=== PATIENT | female | born 1960 | race Caucasian/White ===

== ENCOUNTER 2019-10-20 11:03 | Inpatient (IN) | payer BC, SELFPAY ==
[2019-10-20] VITALS (28 sets, daily range): BP systolic 112–174; BP diastolic 51–132; PULSE 96–135; RESP 12–23; TEMP 36–39.4; O2SAT 89–100; BMI 27.6
--- NOTE | ~2019-10-20 | XR_ITS ---
EXAMINATION: XR foot LT min 3V EXAM DATE: 10/21/2019 11:57 INDICATION: Diabetic Charcot joint. TECHNIQUE: Left foot dorsoplantar, lateral and oblique projections obtained and reviewed. Comparison is made to prior examination from 03/20/2017. FINDINGS: Again there is fragmentation, bony productive change of the midfoot consistent with neurop athic etiology, with some interval progression. There is pes planus. Small to moderate size inferior calcaneal spur. 1st toe amputation at the proximal phalangeal neck. No periosteal reaction or band of sclerosis to suggest subacute stress fracture. There are no acute fractures identified. No radiopa que foreign bodies identified. IMPRESSION: 1. Worsening Charcot's joint. Reviewed, dictated and finalized at location A.
--- NOTE | ~2019-10-20 | XR_ITS ---
EXAMINATION: XR toe 1st RT min 2V, XR foot RT min 3V EXAM DATE: 10/20/2019 12:25 INDICATION: Right foot, 1st toe infection. TECHNIQUE: Right foot dorsoplantar, lateral and oblique projections obtained and reviewed. Right 1st toe frontal, lateral and oblique projections obtained and reviewed. There is no prior study for c omparison. FINDINGS: Erosive change at the right 1st distal phalangeal tuft cortex consistent with osteomyeliti s. There is overlying soft tissue ulceration and surrounding swelling. No other right foot regions o f erosion. There is moderate tarsometatarsal osteoarthritis, probably primary osteoarthritis unless t here is history of prior injury to this joint. No periosteal reaction to suggest subacute fracture. T here are no acute fractures identified. IMPRESSION: Right 1st tuft osteomyelitis, soft tissue ulceration, swelling. Reviewed, dictated and finalized at location A. IMPRESSION: Right 1st tuft osteomyelitis, soft tissue ulceration, swelling.
--- NOTE | 2019-10-20 11:10 | ED.GENADULT ---
HPI - General Adult General Chief complaint: Nausea/Vomiting/Diarrhea Stated complaint: N/V/D MULT C/O Time Seen by Provider: 10/20/19 11:10 Source: patient Mode of arrival: ambulatory Limitations: no limitations Related Data Allergies Allergy/AdvReac Type Severity Reaction Status Date / Time clavulanic acid Allergy Mild SEVERE Unverified 04/19/17 12:10 VOMITING metformin Allergy Mild SEVERE Unverified 04/19/17 12:10 VOMITING Penicillins Allergy Mild SEVERE Unverified 04/19/17 12:10 VOMITING amoxicillin Allergy Unknown Verified 04/19/17 12:10 BETALACTAMASEIN Allergy Mild SEVERE Uncoded 08/07/08 15:27 VOMITING CLAVULANATEPOT Allergy Mild SEVERE Uncoded 08/07/08 15:27 VOMITING NKFA Allergy Unknown Uncoded 10/16/02 14:43 Review of Systems Review of Systems: Narrative: CONSTITUTIONAL: Denies fever, chills, or sweats. EYES: Denies visual changes, redness, or discharge. ENT: Denies rhinorrhea, congestion, sore throat, or otalgia. CARDIOVASCULAR: Denies chest pain, palpitations, or edema. RESPIRATORY: Denies cough or dyspnea. GASTROINTESTINAL: Denies abdominal pain, nausea, vomiting, or diarrhea. GENITOURINARY: Denies dysuria or hematuria. SKIN: Denies rash or itching. MUSCULOSKELETAL: Denies back pain, joint pain, or myalgia. NEUROLOGIC: Denies headache, numbness, or weakness. PSYCHIATRIC: Denies anxiety or depression. PMFSH Past Medical History Medical History (Updated 10/20/19 @ 11:14 by RAMBO Sevilla) Diabetes Fractures Left foot GERD (gastroesophageal reflux disease) Surgical History Surgical History (Updated 10/20/19 @ 11:14 by RAMBO Sevilla) H/O tubal ligation History of cholecystectomy History of orthopedic surgery Great toe on left foot amputated Family History Family History (Updated 10/20/19 @ 11:15 by RAMBO Sevilla) Other Cancer Diabetes mellitus Hypertension Respiratory disorder Comments At the time of my signature I agree with nursing past medical history, surgical, social, and family history. There is no relevant family history pertinent to the presenting complaint. Exam Narrative: Exam Narrative: GENERAL: Well-appearing, well-nourished, and in no acute distress. HEAD: Normocephalic, atraumatic. EYES: PERRLA and EOMI. ENT: Nares clear, no rhinorrhea or epistaxis. Mucous membranes moist. NECK: Supple. No lymphadenopathy CHEST: Clear to auscultation. No respiratory distress. HEART: Regular rate and rhythm. No murmur heard. Normal peripheral pulses. ABDOMEN: Soft, nontender, nondistended, normal active bowel sounds. EXTREMITIES: Normal range of motion. No edema. SKIN: Warm, dry, no rash. NEURO: No focal deficits. Alert and oriented x3. Course Vital Signs Vital signs: Vital signs reviewed. Medical Decision Making Differential Diagnosis Differential Diagnosis: Differential diagnosis: Appendicitis, ovarian torsion, gallbladder disease, ovarian torsion, pancreatitis, lower lobe pneumonia,AAA, AMI or ACS, DKA, diverticulitis. Critical Care Time Critical Care Time Critical Care Time: No
[2019-10-20 11:17] LABS: Glucose Point of Care 484 (65-105)
--- NOTE | 2019-10-20 11:29 | ED.NAVMDI ---
HPI - Nausea/Vomiting/Diarrhea General Chief complaint: Nausea/Vomiting/Diarrhea Stated complaint: N/V/D MULT C/O Time Seen by Provider: 10/20/19 11:10 Source: patient Mode of arrival: ambulatory Limitations: no limitations History of Present Illness HPI Narrative: Patient is a 59-year-old type I diabetic who presents for evaluation of several symptoms including concern for infection of right great toe, vomiting, elevated blood glucose levels. Patient states she has been weak and vomiting over the past 5 days. She has had no oral intake. Patient states that she is feels shaky and very dehydrated. She is denying any chest pain, states that she has had low-grade fevers and myalgias. She reports abdominal cramping throughout her abdomen, denies any back pain. No dysuria or hematuria, but states she has had very concentrated urine. Patient has been without any of her medications over the past 2 months as she had an insurance change and has not had any physician able to see her that accepts her insurance. Patient has a history of peripheral neuropathy, has history of toe amputation of the rleft foot in the past. States that she does not have any feeling in her left foot, but reports that yesterday the left great toe did not look as red as inflamed as it does today. No recent travel, no cough or shortness of breath. No rhinorrhea or congestion. No recent sick contacts. Patient has been mostly isolating at home. Related Data Home Medications Medication Instructions Recorded Confirmed neomycin-polymyxin B-dexameth drp 10/20/19 tobramycin 10/20/19 Allergies Allergy/AdvReac Type Severity Reaction Status Date / Time clavulanic acid Allergy Mild SEVERE Verified 10/20/19 11:49 VOMITING metformin Allergy Mild SEVERE Verified 10/20/19 11:49 VOMITING Penicillins Allergy Mild SEVERE Verified 10/20/19 11:49 VOMITING amoxicillin Allergy Unknown Unknown Verified 10/20/19 11:49 BETALACTAMASEIN Allergy Mild SEVERE Uncoded 08/07/08 15:27 VOMITING CLAVULANATEPOT Allergy Mild SEVERE Uncoded 08/07/08 15:27 VOMITING Review of Systems Review of Systems: Narrative: CONSTITUTIONAL: Reports fever and chills EYES: Denies visual changes, redness, or discharge. ENT: Denies rhinorrhea, congestion, sore throat, or otalgia. CARDIOVASCULAR: Denies chest pain, reports palpitations RESPIRATORY: Denies cough or dyspnea. GASTROINTESTINAL: Reports abdominal pain, nausea, vomiting and diarrhea GENITOURINARY: Denies dysuria or hematuria. SKIN: Denies rash or itching. MUSCULOSKELETAL: Denies back pain, joint pain, reports myalgias NEUROLOGIC: Denies headache, numbness, reports feeling weak PMFSH Past Medical History Medical History Amputated great toe of left foot Diabetes Fractures Left foot GERD (gastroesophageal reflux disease) Surgical History Surgical History H/O tubal ligation History of cholecystectomy History of orthopedic surgery Great toe on left foot amputated Family History Family History (Updated 10/20/19 @ 11:15 by RAMBO Sevilla) Other Cancer Diabetes mellitus Hypertension Respiratory disorder Social History Social History (Updated 10/20/19 @ 11:37 by Edwina Jimenez MD) Smoking status: Never smoker Alcohol intake: never Substance use: never Living arrangements: with family Gender identity (if verbalized by the patient): Female Exam Narrative: Exam Narrative: GENERAL: Awake, alert, conversant HEAD: Normocephalic, atraumatic. EYES: PERRLA and EOMI. ENT: Nares clear, no rhinorrhea or epistaxis. Mucous membranes dry. NECK: Supple. CHEST: No respiratory distress, breathing even and non labored HEART: Tachycardic rate, sinus rhythm ABDOMEN:Non distended, non tender EXTREMITIES: Normal range of motion. Great toe amputation left foot. Right foot great toe erythemo
--- NOTE | 2019-10-20 11:30 | ECG_ITS ---
Measurements Intervals [place] Rate: 131 P: 13 HI: 158 QRS: -32 QRSD: 84 T: 30 QT: 287 QTc: 424 Interpretive Statements SINUS TACHYCARDIA LEFT AXIS DEVIATION VOLTAGE CRITERIA FOR LVH ANTEROSEPTAL INFARCT, AGE INDETERMINATE BASELINE ARTIFACT- II, III, AVR, AVL, AVF ABNORMAL ECG Electronically Signed On 10-20-2019 13:17:31 CDT by Darian Pa D.O.
[2019-10-20] MEDS: MORPHINE SULFATE 2 MG/ML INJ IV PUSH (11:42)
[2019-10-20] MEDS: ONDANSETRON INJ 4 MG/2 ML VIAL IV PUSH (11:42)
[2019-10-20] MEDS: SODIUM CHLORIDE 0.9% IV 2,000 ML/1,000 ML BAG 999 ML IV CONT ×2 (11:42→12:00)
[2019-10-20 12:05] LABS: Alveolar/Arterial O2 Gradient 88.4 mmHg; Base Excess ABG -2.8 mEq/l (+/-2.0); Carboxyhemoglobin 0.8 % THb (0-2.0); Fractional Inspired Oxygen 21 %; HCO3 ABG 20.5 mEq/l (22.0-26.0); Methemoglobin ABG 0.1 %THb (0-1.5); Oxygen Content ABG 15.3 %vol (16.0-22.0); Oxygen Saturation ABG 96.4 % (95.0-100.0); Oxyhemoglobin 94.3 % THb (90.0-100.0); PCO2 ABG 30.7 mmHg (35.0-45.0); PO2 ABG 80.5 mmHg (80.0-100.0); PO2 FiO2 Ratio Arterial Blood 3.83 %; Reduced Hemoglobin 4.8 %THb (0-5.0); Site Drawn LEFT BRACHIAL; Total Hemoglobin 11.5 g/dL (12.0-18.0); pH ABG 7.442 (7.350-7.450)
[2019-10-20 12:05] LABS: Basophils Percent Auto 0.3 % (0.2-1.2); Eosinophils Percent Auto 0.1 % (0-4.4); Hematocrit 38.6 % (37.0-47.0); Immature Granulocyte Absolute 0.08 K/mm3 (0.00-0.031); Immature Granulocyte Percent A 0.7 % (0-0.5); Lymphocytes Absolute Auto 1.74 K/mm3 (0.9-3.2); Lymphocytes Percent Auto 14.4 % (18.3-44.2); Mean Corpuscular HGB Conc 33.7 g/dl (32-36); Mean Corpuscular Hemoglobin 28.8 pg (26-34); Mean Corpuscular Volume 85.4 fl (80-100); Mean Platelet Volume 9.3 fl (7.4-10.4); Monocytes Absolute Auto 0.7 K/mm3 (0.1-0.6); Neutrophils Absolute Auto 9.5 K/mm3 (1.3-6.7); Neutrophils Percent Auto 78.5 % (45.5-73.1); Platelet Count Result 269 k/mm3 (150-375); Red Blood Count 4.52 M/mm3 (4.2-5.4); Red Cell Distribution Width 13.2 % (11.5-14.5); White Blood Count 12.1 K/mm3 (4.5-10.0)
[2019-10-20 12:06] LABS: Device ROOM AIR
[2019-10-20 12:15] LABS: INR 1.1; Partial Thromboplastin Time 22.6 SECONDS (22.3-36.8)
[2019-10-20 12:28] LABS: Troponin I < 0.012 ng/mL (0.000-0.034)
[2019-10-20 12:32] LABS: Erythrocyte Sedimentation Rate 35 mm/hr (0-20)
[2019-10-20 12:47] LABS: Alanine Aminotransferase 21 U/L (4-35); Albumin Level 4.3 g/dL (3.5-5.1); Alkaline Phosphatase 104 U/L (38-126); Aspartate Amino Transferase 29 U/L (14-36); Bilirubin,Total 0.8 mg/dL (0.2-1.3); Blood Urea Nitrogen 17 mg/dL (7-17); Calcium 9.1 mg/dL (8.4-10.2); Carbon Dioxide 25 mmol/L (22-30); Chloride 91 mmol/L (98-107); Estimated CRCL calculation 62 ml/min; Estimated Glomerular Filt Rate > 60; Glucose 524 mg/dL (65-105); Lipase 47 U/L (23-300); Potassium 4.1 mmol/L (3.4-5.0); Sodium 128 mmol/L (137-145)
[2019-10-20 12:58] LABS: Add Urine Microscopic? YES; Appearance Urine Clear (Clear); Bacteria Urine 4+ /hpf; Bilirubin Urine Negative (Negative); Blood Urine Negative (Negative); Color Urine Yellow (Yellow); Glucose Urine UA 3+ mg/dL (Negative); Ketones Urine Trace mg/dL (Negative); Leukocyte Esterase Ur 1+ LEU/UL (Negative); Mucus Urine Heavy /lpf; Nitrate Urine Negative (Negative); Protein Urine Negative (Negative); RBC Urine 0-2 /hpf (0-2); Specific Grav Ur 1.026 (1.001-1.035); Squamous Epithelial Cell Urine Rare /hpf (Few); Urobilinogen Urine Negative mg/dL (<2.0); WBC Urine 0-3 /hpf
[2019-10-20 13:20] LABS: Glucose Point of Care 402 (65-105)
[2019-10-20] MEDS: METOCLOPRAMIDE HCL INJ 10 MG/2 ML VIAL IV PUSH (13:29)
[2019-10-20 13:36] LABS: CRP 37.5 mg/dL (<1.0)
[2019-10-20] MEDS: metroNIDAZOLE 500 MG/ISO 100ML 500 MG/100 ML BAG 100 MG IVPB ×2 (13:37→20:37)
[2019-10-20 13:40] LABS: Glucose 429 mg/dL (65-105)
[2019-10-20] MEDS: INSULIN HUMAN REGULAR (*BKC) 100 UNITS/ML 10 UNITS SUB-Q (13:40)
--- NOTE | 2019-10-20 14:00 | PC.NURSE ---
Pt. oral temp is 103 after tylenol administration. EDP notified and aware. No other interventions ordered at this time.
[2019-10-20 14:02] LABS: Magnesium 1.7 mg/dL (1.6-2.3); Phosphorus 2.9 mg/dL (2.5-4.5)
[2019-10-20 14:03] LABS: Beta-Hydroxybutyrate/Acetoacetate 0.74 mmol/L (0.02-0.27)
--- NOTE | 2019-10-20 15:00 | ADMGEN ---
This patient, Silvina Ospina, was admitted to IMU Room 214-01. Patient/family oriented to hospital policies and general routines including ID bracelet, bed and alarms, visiting hours, pain management, procedures, bathroom and other care routines, personal items, smoking policy, room service/diet, and visiting hours. Valuables list has been completed. Information on how to activate the Rapid Response Team has been discussed. Patient/Family are encouraged to report perceived risks to care and to ask questions if they do not understand what they are told or what they should do.
[2019-10-20 15:03] LABS: Reflex Lactic Acid Yes or No Add Lactic
--- NOTE | 2019-10-20 15:15 | PM.IMHP ---
H&P: HPI History of Present Illness Chief complaint: Multiple complaints. Narrative: Silvina Ospina is a 59-year-old female with insulin-dependent diabetes complicated by diabetic retinopathy and neuropathy who presented to the emergency department earlier this morning via private vehicle from home for evaluation of multiple complaints. She has not been feeling well since Tuesday with multiple symptoms to include lethargy, chills, subjective fever, headache, nausea, dry heaves, and myalgias. Two days ago she noticed the small, chronic ulcer at the tip of the right 1st great toe which seemed to be increasing in size with diffuse erythema and edema. She has been putting antibiotic ointment on the area and had it dressed, and when she removed the dressing today she reports nona purulent drainage. Due to her neuropathy, she really has no sensation in her feet. She had diarrhea earlier in the week, but that has since resolved. No dysuria, urinary hesitancy, frequency, or urgency. Of note, she had a change in jobs and lapse in insurance recently and she has been out of her insulin since June. Previously she was on Basaglar and Apidra, but she does not recall the dosing. It sounds as though she is monitoring her glucose here and there, and notes that is has generally been in the 300 to 400 range, but has been over 500 for the past couple of days. Review of Systems Review of Systems: Narrative: Twelve systems were reviewed with pertinent positives and negatives as per HPI. Currently being treated for keratitis of the left eye with mild photophobia. Reports feeling a bit lightheaded the past couple of days which she attributes to dehydration. She denies sinus congestion, rhinorrhea, otalgia, odynophagia, cough, and shortness of breath. She has not had sick contacts and she denies recent travel. She denies chest pain and palpitations. Except as documented, all other systems were reviewed and are negative. [facility] Past Medical History Medical History (Updated 10/20/19 @ 16:05 by Miesha Santana PA-C) Fractures Left foot Gastroesophageal reflux disease Insulin dependent type 2 diabetes mellitus Complicated by retinopathy and neuropathy. Osteomyelitis (~06/2001) Left great toe which was subsequently amputated. Surgical History Surgical History (Updated 10/20/19 @ 15:59 by Miesha Santana PA-C) History of amputation of left great toe (~06/2001) History of section History of cholecystectomy (~11/1999) History of oophorectomy History of tubal ligation Family History Family History Other Cancer Diabetes mellitus Hypertension Respiratory disorder Social History Social History (Updated 10/20/19 @ 16:01 by Miesha Santana PA-C) Social History: Surrogate decision maker: Sarah Garcia, daughter. Sister Aicha also designated as an emergency contact. Code status: Full code. Smoking status: Former smoker Alcohol intake: never Substance use: never Living arrangements: with family Additional living arrangements comments: Patient lives with her significant other in [place]. Additional occupation/education comments: Works in [employer]. Gender identity (if verbalized by the patient): Female Sexual Orientation (if Verbalized by the Patient): Straight or Heterosexual Spiritual care concerns: Yes ([facility]) Meds Home Medications and Allergies Home Medications Medication Instructions Recorded Confirmed Type neomycin-polymyxin B-dexameth 1 drp BEVE QID 10/20/19 10/20/19 History Allergies Allergy/AdvReac Type Severity Reaction Status Date / Time clavulanic acid Allergy Mild SEVERE Verified 10/20/19 15:16 VOMITING metformin Allergy Mild SEVERE Verified 10/20/19 15:16 VOMITING Penicillins Allergy Mild SEVERE Verified 10/20/19 15:16 VOMITING amoxicilli
[2019-10-20] MEDS: LACTATED RINGERS 1,000 ML 150 ML IV CONT ×2 (15:29→22:50)
[2019-10-20 15:52] LABS: Hemoglobin A1C 13.8 % (<5.7)
[2019-10-20 15:54] LABS: Lactic Acid 3.1 mmol/L (0.7-2.1)
[2019-10-20] MEDS: NEOMYCIN/POLYMYXIN/DEXAMETH OP SUSP 5 ML BTL 1 DROP EACH EYE ×2 (17:27→20:40)
[2019-10-20] MEDS: INSULIN ASPART (*BKC) 100 UNITS/ML SUB-Q (17:27)
[2019-10-20 17:33] LABS: Glucose Point of Care 297 (65-105)
[2019-10-20] MEDS: NEOMYCIN/POLYMYXIN/BACITRACIN OINTMENT 15 GM TUBE 1 APPLIC TOPICAL (20:55)
[2019-10-20 20:59] LABS: Glucose Point of Care 352 (65-105)
[2019-10-20] MEDS: INSULIN GLARGINE (*BKC) 100 UNITS/ML 21 UNITS SUB-Q (21:06)
[2019-10-21] VITALS (15 sets, daily range): BP systolic 119–149; BP diastolic 62–85; PULSE 91–114; RESP 16–20; TEMP 35.7–36; O2SAT 96–100
[2019-10-21] MEDS: metroNIDAZOLE 500 MG/ISO 100ML 500 MG/100 ML BAG 100 MG IVPB ×4 (02:10→20:28)
[2019-10-21 04:01] LABS: Hematocrit 31.8 % (37.0-47.0); Hemoglobin 10.9 g/dL (12.0-15.0); Mean Corpuscular HGB Conc 34.3 g/dl (32-36); Mean Corpuscular Hemoglobin 29.1 pg (26-34); Mean Corpuscular Volume 84.8 fl (80-100); Mean Platelet Volume 9.7 fl (7.4-10.4); Platelet Count Result 202 k/mm3 (150-375); Red Blood Count 3.75 M/mm3 (4.2-5.4); Red Cell Distribution Width 13.1 % (11.5-14.5); White Blood Count 13.3 K/mm3 (4.5-10.0)
[2019-10-21 04:20] LABS: Blood Urea Nitrogen 13 mg/dL (7-17); Calcium 7.9 mg/dL (8.4-10.2); Carbon Dioxide 25 mmol/L (22-30); Chloride 97 mmol/L (98-107); Estimated CRCL calculation 84 ml/min; Estimated Glomerular Filt Rate > 60; Glucose 284 mg/dL (65-105); Potassium 3.4 mmol/L (3.4-5.0); Sodium 129 mmol/L (137-145)
[2019-10-21 08:18] LABS: Glucose Point of Care 307 (65-105)
[2019-10-21] MEDS: LACTATED RINGERS 1,000 ML 150 ML IV CONT ×2 (08:33→20:27)
[2019-10-21] MEDS: NEOMYCIN/POLYMYXIN/DEXAMETH OP SUSP 5 ML BTL 1 DROP EACH EYE ×4 (08:34→20:28)
[2019-10-21] MEDS: NEOMYCIN/POLYMYXIN/BACITRACIN OINTMENT 15 GM TUBE 1 APPLIC TOPICAL (08:34)
[2019-10-21] MEDS: INSULIN ASPART (*BKC) 100 UNITS/ML SUB-Q ×5 (08:36→18:11)
--- NOTE | 2019-10-21 10:46 | PM.IMPN ---
Progress Note: A&P Assessment and Plan (1) Sepsis: Qualifiers: Sepsis acute organ dysfunction status: unspecified Sepsis type: sepsis due to unspecified organism Qualified Code(s): A41.9 - Sepsis, unspecified organism Code(s): A41.9 - Sepsis, unspecified organism Status: Acute Assessment and Plan: -----patient presented to the emergency room with a fever, tachycardia, leukocytosis and lactic acidosis. Etiology likely osteomyelitis with bacteremia. Patient was seen today and still has sinus tachycardia but the fevers have resolved but the leukocytosis has worsened a bit. Her lactic acid yesterday was 3.0. This will be redrawn this morning. Anion gap normal at 7. Patient also is growing g positive cocci in chains in her blood. Continue antibiotics, IV fluids, and monitoring. Patient appears to have improved today. (2) Osteomyelitis of great toe of right foot: Code(s): M86.9 - Osteomyelitis, unspecified Status: Acute Assessment and Plan: -----x-ray of the great toe on the right shows osteomyelitis. Dr. valle has been consulted and adjusted the antibiotics to continue with ceftriaxone and Flagyl. The patient is having some diarrhea but no history of this or C diff and likely associated with antibiotics. Will give her some antidiarrheals to help with this. C diff less likely. Dr. Marshall has been consulted and his input is appreciated. (3) Insulin dependent type 2 diabetes mellitus: Code(s): E11.9 - Type 2 diabetes mellitus without complications; Z79.4 - FPC (current) use of insulin Status: Acute Assessment and Plan: ----- Pts last A1c was 13.8 and last glucose 307. She had a lapse in insurance but did get it back. She states that before she lost her insurance she would take sliding scale and count her carbs per meal. She averaged about 10u of short acting insulin and did 21u of long acting insulin BID. Because of her decreased appetite, regulated diet, and infx/surgical risk, will start lower and increase from there depending on her needs. (4) Bacteriuria: Code(s): R82.71 - Bacteriuria Status: Acute Assessment and Plan: -----She has no symptoms of urinary tract infection. Ceftriaxone should cover if she does have an infection. (5) Hyponatremia: Code(s): E87.1 - Hypo-osmolality and hyponatremia Status: Acute Assessment and Plan: -----Last sodium 129 but when corrected for glucose it is 132. Monitor. (6) Left keratitis: Code(s): H16.9 - Unspecified keratitis Status: Acute Assessment and Plan: -----Continue eye ointment. (7) Bacteremia: Code(s): R78.81 - Bacteremia Status: Acute Assessment and Plan: -----Gram positive cocci in chains noted in both blood cultures. Dr. valle consulted and started ceftriaxone and will continue flagyl. Stop vanc and levoquin. Will monitor cultures for identifications and sensitivities and adjust accordingly. Time Spent With Patient Time with patient: 25 - 35 minutes Subjective Date/time seen: 10/21/19 10:46 Interval history: Pt is a 59-year-old female here for osteomyelitis, bacteremia, and uncontrolled diabetes. Patient was seen today and states she is feeling much better than compared to yesterday. She feels stronger and she was able to eat something today as she has not eaten 5 days. She started having diarrhea with antibiotics and describes this as 5 episodes this morning and gel like . She has not had this issue in the past. She has no feeling in her lower extremities and is not describing any pain in her toes. She denies chest pain, shortness of breath, fevers, chills, nausea or vomiting. The mass was palpated on her upper abdomen and she states that this is consistent with her lap band surgery and it has been there for a while. Review of Systems Review of Systems: All systems reviewed & are
[2019-10-21 10:48] LABS: Lactic Acid Reflex 2.7 mmol/L (0.7-2.1)
--- NOTE | 2019-10-21 11:14 | PM.CNOR ---
Assessment and Plan Assessment and plan (1) Osteomyelitis of great toe of right foot: Code(s): M86.9 - Osteomyelitis, unspecified Status: Acute Assessment and Plan: History, exam and radiographs reviewed with patient, consistent with acute versus acute on subacute osteomyelitis right hallux. Patient states similar situation with left hallux resulting in amputation. Discussed treatment options, risks and benefits of each in chance of salvage. Questions answered. She verbalized understanding would like to proceed with excision of the osteomyelitis which requires amputation of the hallux. She did well with similar treatment on the left side. Discussed nonoperative and operative treatment options with the patient. Risks and benefits of each as well as alternatives were reviewed. All of the patient's questions were answered. The risks of surgery reviewed including but not limited to: Neurovascular damage, wound complication, infection, blood clot, pulmonary embolus, stroke, myocardial infarction, and anesthetic risks up to and including . Continued pain and possible dysfunction were explained. Specific risks of the procedure including later recurrence of deformity. No guarantees were offered. If hardware used, discussed risk of failure/ breakage and possible need for removal. If complications occur, the patient understands the need for further treatment, possible further surgery. Patient verbalizes understanding and wishes to proceed. PLAN: Right hallux amputation (2) Insulin dependent type 2 diabetes mellitus: Code(s): E11.9 - Type 2 diabetes mellitus without complications; Z79.4 - dog hair clipper (current) use of insulin Status: Acute Assessment and Plan: untreated for the past 3 months secondary to insurance problems and COVID-19. Improved control after admission. Continue with IV antibiotics. Cultures pending. (3) Charcot foot due to diabetes mellitus: Code(s): E11.610 - Type 2 diabetes mellitus with diabetic neuropathic arthropathy Status: Acute Assessment and Plan: Left midfoot Charcot changes, chronic. We will obtain new x-rays of the left foot. No active signs at this time. History of Present Illness HPI Consult date: 10/21/19 Requesting physician: Miesha Santana PA-C Consult reason: other (Right diabetic toe infection) Chief complaint: Multiple complaints. Narrative: 59-year-old woman with insulin-dependent diabetes and peripheral neuropathy, history of previous left hallux amputation, presented to emergency room with 3 to 4 week history of worsening right great toe swelling, redness and purulent drainage. No pain secondary to neuropathy. Noted purulent drainage started 3 or 4 days ago. Swelling increased. She had switched jobs 3 months ago and started wearing steel toe boots. Not sure if this had any effect. In addition, with change in job she had change in insurance and was unable to get her insulin. Her diabetes has been uncontrolled for the past 3 months. Noted redness and swelling extending from the toe to the foot over the past few days. Denies ankle leg knee pain. Not sure if she had fever or chills at home. She has had fever here since admission. She was started on intravenous antibiotics and dressing changes. Blood culture and wound cultures are pending. Current symptoms: Reports fever(s) Location: toe ( right hallux) Duration: 3-4 weeks Pain scale (0-10): 0 Trigger: other ( unknown) Review of Systems Constitutional: Constitutional: Reports fatigue and Reports fever(s) Eyes: Eyes: Denies blurry vision ENT: Reports Normal hearing present Cardiovascular: Cardiovascular: Denies chest pain and Denies dyspnea Respiratory: Respiratory: Denies dyspnea and Denies wheezing Gastrointestinal: Gastrointestinal: Denies abdominal pain Genitourinary: Genitourinary: Denies urinary urgency Musculoskeletal: Musculoskeletal: Reports as per HPI Integumen
[2019-10-21 11:44] LABS: Glucose Point of Care 345 (65-105)
[2019-10-21 13:35] LABS: Reflex Lactic Acid Yes or No Add Lactic
[2019-10-21 14:20] LABS: Lactic Acid 1.8 mmol/L (0.7-2.1)
[2019-10-21] MEDS: LOPERAMIDE HCL 2 MG CAPSULE PO ×2 (14:42→18:10)
[2019-10-21 16:31] LABS: Glucose Point of Care 275 (65-105)
[2019-10-21 20:19] LABS: Glucose Point of Care 319 (65-105)
[2019-10-21] MEDS: INSULIN GLARGINE (*BKC) 100 UNITS/ML 20 UNITS SUB-Q (20:29)
[2019-10-22] VITALS (27 sets, daily range): BP systolic 105–157; BP diastolic 54–95; PULSE 80–111; RESP 13–20; TEMP 35.9–37; O2SAT 95–100
[2019-10-22] MEDS: metroNIDAZOLE 500 MG/ISO 100ML 500 MG/100 ML BAG 100 MG IVPB ×4 (01:20→20:48)
[2019-10-22 04:55] LABS: Basophils Absolute Auto 0.1 K/mm3 (0.0-0.1); Basophils Percent Auto 0.4 % (0.2-1.2); Eosinophils Absolute Auto 0.3 K/mm3 (0-0.3); Eosinophils Percent Auto 2.1 % (0-4.4); Hematocrit 30.1 % (37.0-47.0); Hemoglobin 10.4 g/dL (12.0-15.0); Immature Granulocyte Absolute 0.18 K/mm3 (0.00-0.031); Immature Granulocyte Percent A 1.5 % (0-0.5); Lymphocytes Absolute Auto 3.08 K/mm3 (0.9-3.2); Lymphocytes Percent Auto 25.3 % (18.3-44.2); Mean Corpuscular HGB Conc 34.6 g/dl (32-36); Mean Corpuscular Hemoglobin 29.1 pg (26-34); Mean Corpuscular Volume 84.1 fl (80-100); Neutrophils Absolute Auto 7.6 K/mm3 (1.3-6.7); Neutrophils Percent Auto 62.7 % (45.5-73.1); Platelet Count Result 264 k/mm3 (150-375); Red Blood Count 3.58 M/mm3 (4.2-5.4); White Blood Count 12.2 K/mm3 (4.5-10.0)
[2019-10-22 05:22] LABS: Alanine Aminotransferase 12 U/L (4-35); Albumin Level 3.2 g/dL (3.5-5.1); Alkaline Phosphatase 70 U/L (38-126); Aspartate Amino Transferase 18 U/L (14-36); Bilirubin,Total 0.4 mg/dL (0.2-1.3); Blood Urea Nitrogen 8 mg/dL (7-17); Carbon Dioxide 29 mmol/L (22-30); Chloride 97 mmol/L (98-107); Estimated CRCL calculation 84 ml/min; Estimated Glomerular Filt Rate > 60; Glucose 271 mg/dL (65-105); Magnesium 1.3 mg/dL (1.6-2.3); Potassium 2.8 mmol/L (3.4-5.0); Sodium 132 mmol/L (137-145)
[2019-10-22] MEDS: LACTATED RINGERS 1,000 ML 150 ML IV CONT ×3 (05:31→20:47)
--- NOTE | 2019-10-22 07:10 | WPDHPUPDATE1 ---
History and Physical Update Update Date/Time: 10/22/19 07:10 History and Physical has been reviewed, including an updated exam of the patient. There are NO changes in the patient's condition. Risks, benefits, and alternatives have been discussed and questions answered. Patient agrees to proceed with procedure.
--- NOTE | 2019-10-22 07:40 | WPDINFPN2 ---
Progress Note: A&P Assessment and Plan (1) Bacteremia: Code(s): R78.81 - Bacteremia Status: Acute Assessment and Plan: 1. Gram + bacteremia with infection, very likely skin Streptococcus such as B or C. Toe source 2. OM of R 1st toe. 3. 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 F/U micro. Toe amputation today. Stop metronidazole after today. Subjective Date/time seen: 10/22/19 07:40 Objective Data Vital Signs Vital Signs: Vital Signs - 24 hr 10/21/19 08:00 10/21/19 10:44 10/21/19 12:00 Temperature 35.8 C L 35.8 C L Pulse Rate 103 H 108 H 108 H Respiratory Rate 16 16 Blood Pressure 144/85 H 146/75 H Pulse Oximetry 100 100 10/21/19 14:38 10/21/19 16:00 10/21/19 18:29 Temperature 35.7 C L Pulse Rate 114 H 111 H 109 H Respiratory Rate 16 Blood Pressure 119/62 Pulse Oximetry 99 10/21/19 19:45 10/21/19 20:00 10/21/19 22:00 Temperature 35.8 C L Pulse Rate 105 H 93 91 Respiratory Rate 18 Blood Pressure 138/68 Pulse Oximetry 96 10/21/19 23:36 10/22/19 00:00 10/22/19 02:00 Temperature 35.9 C L Pulse Rate 97 94 84 Respiratory Rate 20 Blood Pressure 134/84 Pulse Oximetry 97 10/22/19 04:00 10/22/19 06:00 Temperature 36.0 C L Pulse Rate 92 89 Respiratory Rate 18 Blood Pressure 140/70 Pulse Oximetry 96 Intake/Output Intake/Output: Intake & Output 10/19/19 10/20/19 10/21/19 10/22/19 23:59 23:59 23:59 23:59 Intake Total 4420 3300 3545 Output Total 900 1225 Balance 3520 6705 3545 Meds/Results Medications: Active Medications Generic Name Dose Route Start Last Admin Trade Name Freq PRN Reason Stop Dose Admin Acetaminophen 650 mg 10/20/19 13:32 Tylenol Tablet PO Q4H PRN Mild Pain (1-3) or Fever Hydrocodone Bitart/Acetaminophen 1 tab 10/20/19 13:32 [place] 5-325 Mg PO Q4H PRN Pain Rated 4-6 Dextrose 12.5 gm 10/20/19 15:25 Dextrose 50% Syringe IV PUSH PRN PRN Hypoglycemia Protocol Glucagon 1 mg 10/20/19 15:25 Glucagon For Inj IM PRN PRN Hypoglycemia Protocol Glucose 15 gm 10/20/19 15:25 Glutose 15 PO PRN PRN Hypoglycemia Protocol Metronidazole 500 mg in 100 mls @ 100 mls/hr 10/20/19 20:00 10/22/19 01:20 Flagyl 500 Mg/Iso Soln 100 Ml IVPB 100 mls/hr Q6H ASHER Administration Lactated Ringer's 1,000 mls @ 150 mls/hr 10/20/19 13:35 10/22/19 05:31 Lr - Lactated Ringers Iv IV CONT 150 mls/hr .Q6H40M ASHER Administration Dextrose 1,000 mls @ 100 mls/hr 10/20/19 15:25 Dextrose 5% 1,000 Ml IVPB PRN PRN Hypoglycemia Protocol Ceftriaxone Sodium/Dextrose 1 gm in 50 mls @ 100 mls/hr 10/21/19 12:00 10/21/19 14:39 Rocephin 1 Gm/D5w 50 Ml IVPB Infused NOON ASHER Infusion Potassium Chloride 500 mls @ 125 mls/hr 10/22/19 05:57 10/22/19 06:37 Kcl 40 Meq/D5w 500 Ml Peripheral IVPB 10/22/19 09:56 125 mls/hr ONCE ONE Administration Potassium Chloride 100 mls @ 50 mls/hr 10/22/19 05:57 Potassium Chloride 20 Meq/Sw 100 Ml IVPB 10/22/19 07:56 ONCE ONE Lactated Ringer's 1,000 mls @ 30 mls/hr 10/22/19 07:20 Lr - Lactated Ringers Iv IV CONT .Q24H [facility] Insulin Aspart 3 - 6 units 10/20/19 17:00 10/21/19 18:11 Novolog SUB-Q 4 units TIDWM ASHER Administration Protocol Insulin Aspart 4 units 10/21/19 12:00 10/21/19 18:11 Novolog 0.05 units/kg (4 units) 4 units SUB-Q Administration TIDWM [facility] Insulin Glargine 20 units 10/21/19 21:00 10/21/19 20:29 Lantus SUB-Q 20 units HS ASHER Administration Loperamide HCl 2 mg 10/21/19 11:07 10/21/19 18:10 Loperamide Hcl PO 2 mg PRN PRN Administration Diarrhea Neomycin/Polymyxin/Bacitracin 1 applic 10/20/19 21:00 10/21/19 20:36 Triple Antibiotic Ointment TOPICAL Not Given Q12HR ASHER Neomycin/Polymyxin/Dexamethasone 1 drop 10/20/19 1
[2019-10-22 08:40] LABS: Glucose Point of Care 287 (65-105)
[2019-10-22] MEDS: INSULIN ASPART (*BKC) 100 UNITS/ML SUB-Q ×2 (08:42→19:46)
[2019-10-22] MEDS: NEOMYCIN/POLYMYXIN/BACITRACIN OINTMENT 15 GM TUBE 1 APPLIC TOPICAL (08:56)
[2019-10-22] MEDS: NEOMYCIN/POLYMYXIN/DEXAMETH OP SUSP 5 ML BTL 1 DROP EACH EYE ×4 (08:56→20:48)
[2019-10-22] MEDS: LACTATED RINGERS 1,000 ML 30 ML IV CONT (10:00)
--- NOTE | 2019-10-22 10:59 | WPDANESEPPF ---
Anes - Initial Pre Proc Eval Procedure: Operation Date: 10/22/19 11:00 Proposed Procedures p Right Hallux Amputation - Edmond Marshall MD Date/Time: 10/22/19 10:59 Surgeon: Key Boston PA-C Pre Op Diagnosis: Multiple complaints. Patient Data Age: 59 Gender: F Height: 5 ft 3 in Weight: 76.5 kg Last Vital Signs Temp 36.7 C 10/22/19 10:53 Pulse 98 10/22/19 10:53 Resp 20 10/22/19 10:53 BP 140/73 10/22/19 10:53 Pulse Ox 100 10/22/19 10:53 Allergies Allergy/AdvReac Type Severity Reaction Status Date / Time clavulanic acid Allergy Mild SEVERE Verified 10/20/19 15:16 VOMITING metformin Allergy Mild SEVERE Verified 10/20/19 15:16 VOMITING Penicillins Allergy Mild SEVERE Verified 10/20/19 15:16 VOMITING amoxicillin Allergy Unknown Unknown Verified 10/20/19 15:16 BETALACTAMASEIN Allergy Mild SEVERE Uncoded 10/20/19 15:16 VOMITING CLAVULANATEPOT Allergy Mild SEVERE Uncoded 10/20/19 15:16 VOMITING Home Medications Medication Instructions Recorded Confirmed Type neomycin-polymyxin B-dexameth 1 drp LEFTEYE QID 10/20/19 10/20/19 History Laboratory Tests 10/21/19 10/21/19 10/21/19 11:41 13:45 16:19 WBC RBC Hgb Hct MCV MCH MCHC RDW Plt Count MPV Immature Gran % (Auto) Neut % (Auto) Lymph % (Auto) [place] % (Auto) Eos % (Auto) Baso % (Auto) Lymph # (Auto) [place] # (Auto) Eos # (Auto) Baso # (Auto) Abs Immat Gran (auto) Absolute Neuts (auto) Absolute Nucleated RBC Nucleated RBC % Sodium Potassium Chloride Carbon Dioxide BUN Creatinine Estim Creat Clear Calc Estimated GFR Glucose POC Capillary Glucose 345 mg/dl H mg/dl 275 mg/dl H mg/dl (65-105) (65-105) Lactic Acid 1.8 mmol/L mmol/L (0.7-2.1) Calcium Magnesium Total Bilirubin Direct Bilirubin AST ALT Alkaline Phosphatase Total Protein Albumin 10/21/19 10/22/19 10/22/19 20:14 04:28 04:28 WBC 12.2 K/mm3 H K/mm3 (4.5-10.0) RBC 3.58 M/mm3 L M/mm3 (4.2-5.4) Hgb 10.4 g/dL L g/dL (12.0-15.0) Hct 30.1 % L % (37.0-47.0) MCV 84.1 fl fl (80-100) MCH 29.1 pg pg (26-34) MCHC 34.6 g/dl g/dl (32-36) RDW 13.0 % % (11.5-14.5) Plt Count 264 k/mm3 k/mm3 (150-375) MPV 9.0 fl fl (7.4-10.4) Immature Gran % (Auto) 1.5 % H % (0-0.5) Neut % (Auto) 62.7 % % (45.5-73.1) Lymph % (Auto) 25.3 % % (18.3-44.2) [place] % (Auto) 8.0 % % (2.6-8.5) Eos % (Auto) 2.1 % % (0-4.4) Baso % (Auto) 0.4 % % (0.2-1.2) Lymph # (Auto) 3.08 K/mm3 K/mm3 (0.9-3.2) [place] # (Auto) 1.0 K/mm3 H K/mm3 (0.1-0.6) Eos # (Auto) 0.3 K/mm3 K/mm3 (0-0.3) Baso # (Auto) 0.1 K/mm3 K/mm3 (0.0-0.1) Abs Immat Gran (auto) 0.18 K/mm3 H K/mm3 (0.00-0.031) Absolute Neuts (auto) 7.6 K/mm3 H K/mm3 (1.3-6.7) Absolute Nucleated RBC 0.0 K/mm3 K/mm3 (0.0-0.012) Nucleated RBC % 0.0 % % (0.0-0.2) Sodium 132 mmol/L L mmol/L (137-145) Potassium 2.8 mmol/L L* mmol/L (3.4-5.0) Chloride 97 mmol/L L mmol/L (98-107) Carbon Dioxide 29 mmol/L mmol/L (22-30) BUN 8 mg/dL D mg/dL (7-17) Creatinine 0.60 mg/dL L mg/dL (0.7-1.0) Estim Creat Clear Calc 84 ml/min ml/min Estimated GFR > 60 (59 - ) G
[2019-10-22 11:07] LABS: Glucose Point of Care 241 (65-105)
--- NOTE | 2019-10-22 12:05 | P.OP_ITS ---
Procedure Note - Detailed Date of procedure: 10/22/19 Pre-op diagnosis: Multiple complaints. right hallux osteomyelitis diabetic foot ulcer Procedure performed: right hallux amputation Description of procedure: indications: Patient is a 59-year-old woman with insulin-dependent diabetes and peripheral neuropathy. One month history of right hallux diabetic toe ulcer now with x-rays showing osteomyelitis. Presents for operative treatment. Description of procedure: Patient identified in the preoperative holding. Informed consent given. Operative extremity marked. Patient received intravenous antibiotics. Patient brought to the operating room where underwent general anesthetic by anesthesia team. Positioned supine on operating room table. Time-out performed confirming the patient, site of the surgery and the plan. Right foot prepped and draped in usual sterile surgical fashion using Betadine prep solution. There was an ulcer over the dorsal medial aspect of the hallux which revealed full-thickness necrosis with exposed bone of the proximal phalanx. No ability to heal the wound and no soft tissue coverage of the bone, amputation of the hallux was indicated. Fifteen blade knife used to make fishmouth shaped incision at the base of the hallux. Hemostasis controlled with electrocautery. Proximal phalanx incised circumferentially with a 15 blade knife, retractors placed in sagittal saw used to transect the proximal phalanx of the hallux at the mid to proximal 1/3 junction, and hallux removed and passed off the table. Thorough irrigation done. Wound thoroughly irrigated again. Wound closed with 3 0 Monocryl interrupted suture for the deep tissue, 4 O nylon interrupted sutures for the skin. Sterile dressings applied. Patient awoke from anesthesia, extubated and taken to the recovery room in stable con dition. All sponge needle and instrument counts correct at the end the case. Anesthesia: GLMA Surgeon: Edmond Marshall MD Exchange Specialist: 1st hospital aides and assistants teacher Estimated blood loss (mL): 5 Tourniquet time (min): 30 Drains: No Packing: No Pathology: yes ( right hallux) Complications: None Condition: stable Disposition: PACU
[2019-10-22] MEDS: KCL 20 MEQ/SW 100 ML 100 ML 50 MEQ IVPB (12:30)
--- NOTE | 2019-10-22 13:08 | CONS_ITS ---
DATE OF CONSULTATION: 10/22/2019 REASON FOR CONSULTATION: Bacteremia. HISTORY OF PRESENT ILLNESS: The patient is a 59-year-old female with longstanding diabetes mellitus. She has undergone previous amputation of the distal 1st phalanx on the left hand side due to infection by report, this was some 20 years ago. She unfortunately is between primary care physicians currently due to change in insurance plus her blood sugars have been abnormally high. She is admitted to the hospital on October 19, with several days of right 1st toe swelling, redness, drainage, fever and chills, malaise, myalgias, nausea and vomiting and headache. She was admitted and started on ceftriaxone metronidazole, and vancomycin. I stopped the vancomycin yesterday. Operation is planned today on the first toe. She was on no other antibiotics in the last 6 weeks for any other purpose. No steroids. No other immunosuppressants and she knows of no trauma. ALLERGIES: SHE IS UNAWARE OF ANY ALLERGIES, THOUGH CHART INDICATES VOMITING TO PENICILLINS. HABITS: Ex-smoker and no alcohol. PRESENT MEDICATIONS: No immunosuppressants. PAST MEDICAL HISTORY: 1. GERD. 2. Diabetic retinopathy and neuropathy. 3. . 4. Cholecystectomy. 5. Oophorectomy. 6. BTL. REVIEW OF SYSTEMS: Hyperglycemia at home. Her 14-point review is otherwise negative. FAMILY HISTORY: Cancer, diabetes, hypertension, respiratory disease. SOCIAL HISTORY: She is single. 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 Lives with her significant other. No family at the bedside currently. PHYSICAL EXAMINATION: GENERAL: This is a middle-aged female, who appears older than her actual age. No acute distress. VITAL SIGNS: Her temperature on arrival is 38.1, later in the day T-max 39.4, and she has been afebrile since. 98, 18, 140/70, 96% on room air. SKIN: Warm and dry. No rashes. NODES: No cervical adenopathy. EENT: The conjunctivae appear normal. Pupils equal, round, and reactive to light. Extraocular movements are normal. No nystagmus. The oropharynx, oral mucosa normal. Multiple missing teeth. NECK: No masses, thyromegaly, tenderness. LUNGS: Clear to auscultation and percussion. CHEST: Equal expansion. Normal AP diameter. CARDIAC: Regular rate and rhythm. No murmur, gallop, or rub. ABDOMEN: Nontender, soft. No organomegaly. No masses. EXTREMITIES: Amputation site, left 1st toe is well healed. No evidence of erythema, tenderness, or warmth. On the right, she has erythema and edema of the entire 1st toe with erythema extending over into the distal foot on the dorsal aspect. She has no crepitus, no proximal tenderness, no streaking. The toe has several ulcers, which are variable and depth. No odor. No evidence of necrosis, has diffuse erythema of the toe as well. NEUROLOGIC: Decreased light touch sensation. Awake, alert, oriented, appropriate. LABORATORY DATA: Blood cultures 2/2 sets gram-positive cocci in chains. A wound culture was also collected in the emergency room. No white cells, many gram-positive cocci in chains. A 2nd 1 was obtained as well with the same result. Her white blood cell count 12.2 initially and again today after being 13.3 yesterday. Hemoglobin 10.4, platelets are 264, differential is normal. Prothrombin time normal. Blood gas 7.44, 31, 81, 21, 96% room air. She has hyponatremia, which is improving up to 132, potassium is 2.8, creatinine is 0.6, BUN is 8, glucose 271 and yesterday 429. Her hemoglobin A1c 13.8%. Lactate high, but then normalized quickly. Calcium 8.0, but her albumin is only 3.2. Her CRP is 38 and her urinalysis with glucose, leukocyte esterase, otherwise no evidence of infection. RADIOLOGY: Foot x-ray on the right showed erosion at the distal phalangea
--- NOTE | 2019-10-22 16:45 | PM.IMPN ---
Progress Note: A&P Assessment and Plan (1) Sepsis: Qualifiers: Sepsis acute organ dysfunction status: unspecified Sepsis type: sepsis due to unspecified organism Qualified Code(s): A41.9 - Sepsis, unspecified organism Code(s): A41.9 - Sepsis, unspecified organism Status: Acute Assessment and Plan: -----patient presented to the emergency room with a fever, tachycardia, leukocytosis and lactic acidosis. Etiology osteomyelitis with bacteremia. Sinus tachycardia and leukocytosis has improved. Lactic acid has returned to normal. Continue antibiotics (2) Osteomyelitis of great toe of right foot: Code(s): M86.9 - Osteomyelitis, unspecified Status: Acute Assessment and Plan: -----x-ray of the great toe on the right shows osteomyelitis. Patient had amputation 10/21 and has no immediate complications. Dr. valle has been consulted and adjusted the antibiotics. The patient is having some diarrhea but no history of this or C diff and likely associated with antibiotics. Will give her some antidiarrheals to help with this. C diff less likely. Continue activity and anticoagulation per ortho (3) Insulin dependent type 2 diabetes mellitus: Code(s): E11.9 - Type 2 diabetes mellitus without complications; Z79.4 - extermination inspector (current) use of insulin Status: Acute Assessment and Plan: ----- Pts last A1c was 13.8 and last glucose 241. She had a lapse in insurance but did get it back. She states that before she lost her insurance she would take sliding scale and count her carbs per meal. She averaged about 10u of short acting insulin per meals and did 21u of long acting insulin BID. Because of her decreased appetite, regulated diet, and infx/surgical risk, her insulin is 25u lantus daily and 5units with SSI fast acting. This should be adjusted as needed. (4) Bacteriuria: Code(s): R82.71 - Bacteriuria Status: Acute Assessment and Plan: -----She has no symptoms of urinary tract infection. Ceftriaxone should cover if she does have an infection. (5) Hyponatremia: Code(s): E87.1 - Hypo-osmolality and hyponatremia Status: Acute Assessment and Plan: -----Last sodium improving with glucose control, now 132. (6) Left keratitis: Code(s): H16.9 - Unspecified keratitis Status: Acute Assessment and Plan: -----Continue eye ointment. (7) Bacteremia: Code(s): R78.81 - Bacteremia Status: Acute Assessment and Plan: -----Group C strep in both bottles and wound. Dr. valle consulted and will continue ceftriaxone and will flagyl. Monitor for sensativities and adjust accordingly. Subjective Date/time seen: 10/22/19 16:45 Interval history: Pt is a 59-year-old female here for osteomyelitis, bacteremia, and uncontrolled diabetes. Patient was seen today after surgery and states she is feeling a ton better. She no longer has a headache and feels stronger. She is eating and drinking without issue. She still having diarrhea with the antibiotics and this is common for her as she has diarrhea any time she takes antibiotics. She has never had C diff before. She denies chest pain, shortness of breath, fevers, chills, or leg swelling today. Exam Narrative: Exam Narrative: General: Overweight patient resting comfortably in bed in no acute distress HEENT: normocephalic Neck: supple Neuro: Alert and oriented x4 CV: RRR rate about 100. No murmurs Resp:CTA Abd: Soft, non distended. Mass like object in the epigastric/LUQ area. No pain to palpation. Positive bowel sounds Extremities: Right foot bandage and since she just came out of surgery for hemostasis reasons, this was not undressed. No pitting edema or erythema to the lower extremities. Objective Data Vital Signs Vital Signs: Vital Signs - 24 hr 10/21/19 18:29 10/21/19 19:45 10/21/19 20:00 Temperature 96.5 F L Pulse
[2019-10-22 17:05] LABS: Glucose Point of Care 426 (65-105)
[2019-10-22] MEDS: LOPERAMIDE HCL 2 MG CAPSULE PO (17:49)
[2019-10-22] MEDS: INSULIN ASPART (*BKC) 100 UNITS/ML 10 UNITS SUB-Q (18:01)
[2019-10-22] MEDS: MAGNESIUM SULF 2 GM/WATER 50ML 2 GM/50 ML BAG IVPB (19:41)
[2019-10-22 19:45] LABS: Glucose Point of Care 377 (65-105)
[2019-10-22] MEDS: INSULIN GLARGINE (*BKC) 100 UNITS/ML 25 UNITS SUB-Q (20:48)
[2019-10-23] VITALS (11 sets, daily range): BP systolic 128–158; BP diastolic 51–84; PULSE 66–111; RESP 18–20; TEMP 35.9–37.2; O2SAT 94–97
[2019-10-23] MEDS: metroNIDAZOLE 500 MG/ISO 100ML 500 MG/100 ML BAG 100 MG IVPB ×4 (01:24→20:44)
[2019-10-23 05:01] LABS: Basophils Percent Auto 0.2 % (0.2-1.2); Eosinophils Percent Auto 0.3 % (0-4.4); Hemoglobin 11.2 g/dL (12.0-15.0); Immature Granulocyte Absolute 0.34 K/mm3 (0.00-0.031); Immature Granulocyte Percent A 2.8 % (0-0.5); Lymphocytes Absolute Auto 2.72 K/mm3 (0.9-3.2); Lymphocytes Percent Auto 22.4 % (18.3-44.2); Mean Corpuscular HGB Conc 33.9 g/dl (32-36); Mean Corpuscular Hemoglobin 28.4 pg (26-34); Mean Corpuscular Volume 83.8 fl (80-100); Mean Platelet Volume 8.9 fl (7.4-10.4); Monocytes Absolute Auto 0.9 K/mm3 (0.1-0.6); Monocytes Percent Auto 7.3 % (2.6-8.5); Neutrophils Absolute Auto 8.1 K/mm3 (1.3-6.7); Platelet Count Result 335 k/mm3 (150-375); Red Blood Count 3.94 M/mm3 (4.2-5.4); Red Cell Distribution Width 13.2 % (11.5-14.5); White Blood Count 12.2 K/mm3 (4.5-10.0)
[2019-10-23 05:34] LABS: Blood Urea Nitrogen 15 mg/dL (7-17); CRP 15.2 mg/dL (<1.0); Calcium 8.2 mg/dL (8.4-10.2); Carbon Dioxide 30 mmol/L (22-30); Chloride 93 mmol/L (98-107); Estimated CRCL calculation 73 ml/min; Estimated Glomerular Filt Rate > 60; Glucose 341 mg/dL (65-105); Magnesium 1.8 mg/dL (1.6-2.3); Phosphorus 3.2 mg/dL (2.5-4.5); Potassium 3.2 mmol/L (3.4-5.0); Sodium 132 mmol/L (137-145)
[2019-10-23] MEDS: INSULIN ASPART (*BKC) 100 UNITS/ML SUB-Q ×6 (08:02→17:27)
[2019-10-23] MEDS: POTASSIUM CHLORIDE 20 MEQ TABLET 40 MEQ PO (08:03)
[2019-10-23] MEDS: NEOMYCIN/POLYMYXIN/DEXAMETH OP SUSP 5 ML BTL 1 DROP EACH EYE ×4 (08:05→20:44)
[2019-10-23] MEDS: INSULIN GLARGINE (*BKC) 100 UNITS/ML 15 UNITS SUB-Q ×2 (08:05→17:26)
[2019-10-23 08:14] LABS: Glucose Point of Care 322 (65-105)
--- NOTE | 2019-10-23 09:19 | PM.PNORT ---
Progress Note: A&P Assessment and Plan (1) Osteomyelitis of great toe of right foot: Code(s): M86.9 - Osteomyelitis, unspecified Status: Acute Assessment and Plan: POD #1: RIGHT Hallux Amputation Dressing changed. Change daily. Apply adaptic, 4x4 gauze and wrap with kerlex. Continue post op shoe. Weight bearing on heel with walker. IV antibiotics per Dr. Alonso. Appreciate recommendations. Continue PT/OT. Will continue to follow. (2) Charcot foot due to diabetes mellitus: Code(s): E11.610 - Type 2 diabetes mellitus with diabetic neuropathic arthropathy Status: Acute Subjective Subjective Date/Time Seen: 10/23/19 09:19 Post Op day: 1 (Right Hallux Amputation ) Principal diagnosis: Right hallux osteomyelitis diabetic foot ulcer Interval history: POD #1: Right Hallux Amputation No new complaints. No pain. Review of Systems Constitutional: Constitutional: Denies chills, Denies fatigue, Denies fever(s) and Denies weakness Cardiovascular: Cardiovascular: Denies chest pain, Denies pedal edema and Denies lightheadedness Respiratory: Respiratory: Denies cough, Denies dyspnea and Denies wheezing Gastrointestinal: Gastrointestinal: Denies abdominal pain, Denies constipation, Denies diarrhea, Denies nausea and Denies vomiting Musculoskeletal: Musculoskeletal: Reports as per HPI Exam Const: General: comfortable and no acute distress Resp: Effort & Inspection: normal respiratory effort Cardio: Rate: regular rate Rhythm: regular rhythm GI: Inspection: non-distended Skin: General skin exam: normal color Wounds: wounds noted (Right Hallux Amputation ) Neuro: Cognition (Neuro): normal cognition Speech: normal speech Extrem: Right lower extremity: foot (s/p right hallux amputation ) Details: normal capillary refill, toes with normal ROM (aside from hallux ) and motor-sensory exam Details: two point discrimination abnormal Location: in the 2nd digit, in the 3rd digit, in the 4th digit and in the 5th digit and light-touch abnormal Location: in the 2nd digit, in the 3rd digit, in the 4th digit and in the 5th digit Other: Right Hallux Amputation. Incision remains well-approximated. No signs of dehiscence at this time. Mild surrounding redness, relieved with elevation. Remainder of the right foot without redness, warmth, swelling or signs of worsening infection. Psych: Mental Status: mental status grossly normal Affect: normal affect Objective Data Vital Signs Vital Signs: Vital Signs - 24 hr 10/22/19 10:00 10/22/19 10:53 10/22/19 12:00 Temperature 36.7 C Pulse Rate 99 98 87 Respiratory Rate 20 Blood Pressure 140/73 Pulse Oximetry 100 10/22/19 12:06 10/22/19 12:15 10/22/19 12:30 Temperature 36.7 C Pulse Rate 95 97 96 Respiratory Rate 13 13 14 Blood Pressure 142/79 H 138/74 145/76 H Pulse Oximetry 100 100 100 10/22/19 12:45 10/22/19 13:00 10/22/19 13:15 Temperature Pulse Rate 95 96 94 Respiratory Rate 18 18 18 Blood Pressure 155/91 H 157/83 H 151/95 H Pulse Oximetry 95 95 96 10/22/19 13:30 10/22/19 13:45 10/22/19 14:00 Temperature Pulse Rate 95 96 95 Respiratory Rate 14 19 Blood Pressure 155/83 H 153/89 H Pulse Oximetry 96 97 10/22/19 14:30 10/22/19 15:06 10/22/19 16:00 Temperature 37.0 C 37.0 C Pulse Rate 96 96 104 H Respiratory Rate 16 16 Blood Pressure 146/66 H 137/80 Pulse Oximetry 98 98 10/22/19 16:23 10/22/19 17:00 10/22/19 18:00 Temperature 35.9 C L 36.9 C Pulse Rate 108 H 103 H 101 H Respiratory Rate 18 18 Blood Pressure 124/61 136/68 Pulse Oximetry 98 100 10/22/19 19:55 10/22/19 20:00 10/22/19 22:00 Temperature 36.6 C Pulse Rate 111 H 102 H 91 Respiratory Rate 20 Blood Pressure 105/54 L Pulse Oximetry 96 10/22/19 23:30 10/23/19 00:00 10/23/19 02:00 Temperature 36.6 C Pulse Rate 94 79 93 Respiratory Rate 20 Blood Pressure 121/74 Pulse Oximetry 99 10/23/19 03:40
--- NOTE | 2019-10-23 09:36 | WPDANESPN ---
Anes - Prog Note Post-Op Date/Time: 10/23/19 09:36 Cardiovascular status: normal Respiratory status: normal Airway patency: baseline Mental status: baseline Post-Op hydration status: normal Vital Signs: Last Vital Signs Temp 35.9 C L 10/23/19 07:47 Pulse 93 10/23/19 07:47 Resp 20 10/23/19 07:47 BP 147/77 H 10/23/19 07:47 Pulse Ox 97 10/23/19 07:47 I/O: Intake & Output 10/22/19 10/23/19 10/23/19 23:59 07:59 15:59 Intake Total 2060 100 480 Output Total 1300 Balance 760 100 480 Laboratory Tests 10/23/19 04:40 10/23/19 04:40 10/22/19 10/22/19 10/22/19 11:04 16:47 19:42 WBC RBC Hgb Hct MCV MCH MCHC RDW Plt Count MPV Immature Gran % (Auto) Neut % (Auto) Lymph % (Auto) [place] % (Auto) Eos % (Auto) Baso % (Auto) Lymph # (Auto) [place] # (Auto) Eos # (Auto) Baso # (Auto) Abs Immat Gran (auto) Absolute Neuts (auto) Absolute Nucleated RBC Nucleated RBC % Sodium Potassium Chloride Carbon Dioxide BUN Creatinine Estim Creat Clear Calc Estimated GFR Glucose POC Capillary Glucose 241 H 426 H 377 H Calcium Phosphorus Magnesium C-Reactive Protein 10/23/19 10/23/19 10/23/19 04:40 04:40 07:53 WBC 12.2 H RBC 3.94 L Hgb 11.2 L Hct 33.0 L MCV 83.8 MCH 28.4 MCHC 33.9 RDW 13.2 Plt Count 335 MPV 8.9 Immature Gran % (Auto) 2.8 H Neut % (Auto) 67.0 Lymph % (Auto) 22.4 [place] % (Auto) 7.3 Eos % (Auto) 0.3 Baso % (Auto) 0.2 Lymph # (Auto) 2.72 [place] # (Auto) 0.9 H Eos # (Auto) 0.0 Baso # (Auto) 0.0 Abs Immat Gran (auto) 0.34 H Absolute Neuts (auto) 8.1 H Absolute Nucleated RBC 0.0 Nucleated RBC % 0.0 Sodium 132 L Potassium 3.2 L Chloride 93 L Carbon Dioxide 30 BUN 15 D Creatinine 0.70 Estim Creat Clear Calc 73 Estimated GFR > 60 Glucose 341 H POC Capillary Glucose 322 H Calcium 8.2 L Phosphorus 3.2 Magnesium 1.8 C-Reactive Protein 15.2 H Microbiology 10/20/19 11:58 Blood Blood Culture - Final Group B Streptococcus isolated 10/20/19 13:56 Toe Right Great Wound Culture - Preliminary Staphylococcus aureus Group B Streptococcus isolated 10/20/19 11:58 Blood Blood Culture - Final Group B Streptococcus isolated Post-procedural complaints: none Patient Feedback: Patient satisfied with anesthetic care.
--- NOTE | 2019-10-23 10:47 | PM.IMPN ---
Progress Note: A&P Assessment and Plan (1) Osteomyelitis of great toe of right foot: Code(s): M86.9 - Osteomyelitis, unspecified Status: Acute Assessment and Plan: R great toe XR confirmed osteomyelitis; now POD#1 s/p R hallux amputation by Dr Marshall 10/22/19. Blood cultures growing Group B strep; R great toe culture also with growth of Staph aureus. Dr Alonso following; appreciate recommendations. Continue ceftriaxone day 4 of 6 through 10/24 dose. (2) Septicemia: Code(s): A41.9 - Sepsis, unspecified organism Status: Acute Assessment and Plan: Evident by fever, tachycardia, and leukocytosis. Etiology osteomyelitis R great toe with positive blood cultures. See above. 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 Lapse in insurance and changing jobs left her without a PCP and has had trouble getting into a PCP taking new patients due to COVID pandemic. She noted she used to take long-acting insulin twice daily and scheduled short-acting insulin plus sliding scale with each meal. We will try increasing Lantus to BID today and continue scheduled Novolog. Will monitor with accu-cheks and increase insulin as needed. Discussed the importance of establishing with PCP [facility] and discussed the importance of tight glycemic control for wound healing. (4) Hyponatremia: Code(s): E87.1 - Hypo-osmolality and hyponatremia Status: Acute Assessment and Plan: 132 today, will monitor. BG control. (5) Left keratitis: Code(s): H16.9 - Unspecified keratitis Status: Acute Assessment and Plan: Continue eye ointment. Subjective Date/time seen: 10/23/19 10:30 Interval history: Ms. Casillas is a pleasant 59yo F admitted with osteomyelitis and septicemia now POD#1 s/p R hallux amputation by Dr Marshall. She is feeling well today and notes she has walked with therapy. She denies any chest pain, shortness of breath, or cough. She has tolerated some breakfast without nausea, vomiting, or abdominal pain. She notes issues with finding a primary care provider due to COVID pandemic thus has been out of her insulin. Review of Systems Review of Systems: Narrative: Twelve systems were reviewed with pertinent positives and negatives as per HPI. Exam Narrative: Exam Narrative: General: Female resting comfortably in bed in no acute distress. HEENT: Normocephalic, EOMI, oral mucosa moist. Cardiovascular: Rate and rhythm are regular. Respiratory: Lungs clear to auscultation all cui. Non-labored breathing. Abdomen: Soft, non-tender, non-distended, bowel sounds present. Extremities: R foot dressing just changed by lyssa Ortiz, so I did not take it down. Able to wiggle toes SATHISH. Left great toe also amputated, many years ago per PT. No edema. Neuro: No focal neurological deficits. Speech is clear. Objective Data Vital Signs Vital Signs: Last Vital Signs Temp 96.6 F L 10/23/19 07:47 Pulse 101 H 10/23/19 12:00 Resp 20 10/23/19 07:47 BP 147/77 H 10/23/19 07:47 Pulse Ox 97 10/23/19 07:47 Intake/Output Intake/Output: Intake & Output 10/20/19 10/21/19 10/22/19 10/23/19 23:59 23:59 23:59 23:59 Intake Total 4420 3300 6805 580 Output Total 900 1225 1300 Balance 3520 8145 5795 580 Meds/Results Medications: Active Medications Generic Name Dose Route Start Last Admin Trade Name Freq PRN Reason Stop Dose Admin Acetaminophen 650 mg 10/20/19 13:32 Tylenol Tablet PO Q4H PRN Mild Pain (1-3) or Fever Hydrocodone Bitart/Acetaminophen 1 tab 10/20/19 13:32 [place] 5-325 Mg PO Q4H PRN Pain Rated 4-6 Dextrose 12.5 gm 0
[2019-10-23 11:52] LABS: Glucose Point of Care 308 (65-105)
[2019-10-23] MEDS: LOPERAMIDE HCL 2 MG CAPSULE PO ×2 (14:29→22:32)
--- NOTE | 2019-10-23 14:56 | WPDINFPN2 ---
Progress Note: A&P Assessment and Plan (1) Bacteremia: Code(s): R78.81 - Bacteremia Status: Acute Assessment and Plan: 1. Grp B Strep bacteremia with infection, Toe source 2. OM of R 1st toe. S aureus also isolated. Operative findings noted 3. DM poor control due to no manager primary REC Ctx #4 /, through 10/24 dose. Then short course oral. No vancomycin empirically, as there is low suspicion for MRSA, and also because the site of the culture is now gone. Subjective Date/time seen: 10/23/19 14:56 Interval history: very little pain, no further rigors Exam Narrative: Exam Narrative: afebrile Const: General: no acute distress Resp: Effort & Inspection: normal respiratory effort Auscultation: clear to auscultation bilaterally Cardio: Rate: regular rate Rhythm: regular rhythm Heart sounds: no murmurs Extrem: Other: r foot dressed, serosanguinous drainage Objective Data Vital Signs Vital Signs: Vital Signs - 24 hr 10/22/19 15:06 10/22/19 16:00 10/22/19 16:23 Temperature 37.0 C 35.9 C L Pulse Rate 96 104 H 108 H Respiratory Rate 16 18 Blood Pressure 137/80 124/61 Pulse Oximetry 98 98 10/22/19 17:00 10/22/19 18:00 10/22/19 19:55 Temperature 36.9 C 36.6 C Pulse Rate 103 H 101 H 111 H Respiratory Rate 18 20 Blood Pressure 136/68 105/54 L Pulse Oximetry 100 96 10/22/19 20:00 10/22/19 22:00 10/22/19 23:30 Temperature 36.6 C Pulse Rate 102 H 91 94 Respiratory Rate 20 Blood Pressure 121/74 Pulse Oximetry 99 10/23/19 00:00 10/23/19 02:00 10/23/19 03:40 Temperature 36.9 C Pulse Rate 79 93 91 Respiratory Rate 18 Blood Pressure 158/84 H Pulse Oximetry 94 10/23/19 04:00 10/23/19 06:00 10/23/19 07:47 Temperature 35.9 C L Pulse Rate 89 92 93 Respiratory Rate 20 Blood Pressure 147/77 H Pulse Oximetry 97 10/23/19 08:00 10/23/19 10:00 10/23/19 12:00 Temperature Pulse Rate 94 107 H 101 H Respiratory Rate Blood Pressure Pulse Oximetry Intake/Output Intake/Output: Intake & Output 10/20/19 10/21/19 10/22/19 10/23/19 23:59 23:59 23:59 23:59 Intake Total 4420 3300 6855 680 Output Total 900 1225 1300 Balance 8950 6306 3271 680 Meds/Results Medications: Active Medications Generic Name Dose Route Start Last Admin Trade Name Freq PRN Reason Stop Dose Admin Acetaminophen 650 mg 10/20/19 13:32 Tylenol Tablet PO Q4H PRN Mild Pain (1-3) or Fever Hydrocodone Bitart/Acetaminophen 1 tab 10/20/19 13:32 [place] 5-325 Mg PO Q4H PRN Pain Rated 4-6 Dextrose 12.5 gm 10/20/19 15:25 Dextrose 50% Syringe IV PUSH PRN PRN Hypoglycemia Protocol Docusate Sodium 100 mg 10/22/19 17:00 10/23/19 07:58 Colace Capsule PO Not Given BID ASHER Glucagon 1 mg 10/20/19 15:25 Glucagon For Inj IM PRN PRN Hypoglycemia Protocol Glucose 15 gm 10/20/19 15:25 Glutose 15 PO PRN PRN Hypoglycemia Protocol Metronidazole 500 mg in 100 mls @ 100 mls/hr 10/20/19 20:00 10/23/19 14:27 Flagyl 500 Mg/Iso Soln 100 Ml IVPB 100 mls/hr Q6H ASHER Administration Dextrose 1,000 mls @ 100 mls/hr 10/20/19 15:25 Dextrose 5% 1,000 Ml IVPB PRN PRN Hypoglycemia Protocol Ceftriaxone Sodium/Dextrose 1 gm in 50 mls @ 100 mls/hr 10/21/19 12:00 10/23/19 12:30 Rocephin 1 Gm/D5w 50 Ml IVPB 100 mls/hr NOON ASHER Administration Insulin Aspart 3 - 6 units 10/20/19 17:00 10/23/19 12:32 Novolog SUB-Q 5 units TIDWM ASHER Administration Protocol Insulin Aspart 5 units 10/22/19 17:00 10/23/19 12:32 Novolog SUB-Q 5 units TIDWM ASHER Administration Insulin Glargine 15 units 10/23/19 09:00 10/23/19 08:05 Lantus SUB-Q 15 units BID ASHER Administration Loperamide HCl 2 mg 10/21/19 11:07 10/23/19 14:29 Loperamide Hcl PO 2 mg PRN PRN Administration Diarrhea Magnesium Hydroxide 30 ml 10/22/19
--- NOTE | 2019-10-23 16:42 | PC.NURSE ---
This patient, Silvina Ospina, was transferred to [ [id number]] on 10/23/19 at 1645. Personal belongings sent with patient. Belongings list checked and signed with receiving [ ]. Report given to [ Niraj Chacko]. Appropriate documentation sent with patient.
--- NOTE | 2019-10-23 16:55 | PC.NURSE ---
This patient, Silvina Ospina, was received from IMU on 10/23/19 at 1655. Personal belongings list checked and signed. Patient/family oriented to unit policies and routines
[2019-10-23 17:21] LABS: Glucose Point of Care 294 (65-105)
[2019-10-23 22:39] LABS: Glucose Point of Care 241 (65-105)
[2019-10-24] MEDS: metroNIDAZOLE 500 MG/ISO 100ML 500 MG/100 ML BAG 100 MG IVPB ×2 (02:45→09:35)
[2019-10-24] MEDS: LOPERAMIDE HCL 2 MG CAPSULE PO ×4 (03:17→18:04)
[2019-10-24 06:00] VITALS: BP 145/85; PULSE 90; RESP 18; TEMP 36.9; O2SAT 97
[2019-10-24 06:21] LABS: Basophils Absolute Auto 0.1 K/mm3 (0.0-0.1); Basophils Percent Auto 0.8 % (0.2-1.2); Eosinophils Absolute Auto 0.3 K/mm3 (0-0.3); Hematocrit 32.3 % (37.0-47.0); Hemoglobin 10.7 g/dL (12.0-15.0); Immature Granulocyte Absolute 0.38 K/mm3 (0.00-0.031); Immature Granulocyte Percent A 3.5 % (0-0.5); Lymphocytes Absolute Auto 4.39 K/mm3 (0.9-3.2); Lymphocytes Percent Auto 40.2 % (18.3-44.2); Mean Corpuscular HGB Conc 33.1 g/dl (32-36); Mean Corpuscular Hemoglobin 28.4 pg (26-34); Mean Corpuscular Volume 85.7 fl (80-100); Mean Platelet Volume 8.7 fl (7.4-10.4); Monocytes Absolute Auto 0.6 K/mm3 (0.1-0.6); Monocytes Percent Auto 5.5 % (2.6-8.5); Neutrophils Absolute Auto 5.1 K/mm3 (1.3-6.7); Platelet Count Result 375 k/mm3 (150-375); Red Blood Count 3.77 M/mm3 (4.2-5.4); Red Cell Distribution Width 13.2 % (11.5-14.5); White Blood Count 10.9 K/mm3 (4.5-10.0)
[2019-10-24 06:37] LABS: Blood Urea Nitrogen 14 mg/dL (7-17); Calcium 7.8 mg/dL (8.4-10.2); Carbon Dioxide 28 mmol/L (22-30); Chloride 99 mmol/L (98-107); Estimated CRCL calculation 74 ml/min; Estimated Glomerular Filt Rate > 60; Glucose 211 mg/dL (65-105); Magnesium 1.3 mg/dL (1.6-2.3); Sodium 134 mmol/L (137-145)
--- NOTE | 2019-10-24 08:02 | PM.PNORT ---
Progress Note: A&P Assessment and Plan (1) Osteomyelitis of great toe of right foot: Code(s): M86.9 - Osteomyelitis, unspecified Status: Acute Assessment and Plan: POD #2: RIGHT Hallux Amputation Dressing changed. Change daily. Apply adaptic, 4x4 gauze and wrap with kerlex. Continue post op shoe. Weight bearing on heel with walker. Plan for IV antibiotics through tomorrow dose. then plan for home with oral antibiotics. Continue PT/OT. Will continue to follow. 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 No new recommendations at this time Subjective Subjective Date/Time Seen: 10/24/19 08:02 Patient states feeling better today. No new complaints. Exam Const: General: comfortable and no acute distress Resp: Effort & Inspection: normal respiratory effort Cardio: Rate: regular rate Rhythm: regular rhythm GI: Inspection: non-distended Skin: General skin exam: normal color Wounds: wounds noted (Right Hallux Amputation ) Neuro: Cognition (Neuro): normal cognition Speech: normal speech Extrem: Right lower extremity: foot (s/p right hallux amputation ) Details: normal capillary refill, toes with normal ROM (aside from hallux ) and motor-sensory exam Details: two point discrimination abnormal Location: in the 2nd digit, in the 3rd digit, in the 4th digit and in the 5th digit and light-touch abnormal Location: in the 2nd digit, in the 3rd digit, in the 4th digit and in the 5th digit Other: Right Hallux Amputation. Incision remains well-approximated. No signs of dehiscence at this time. Mild surrounding redness- improved, relieved with elevation. Remainder of the right foot without redness, warmth, swelling or signs of infection. Psych: Mental Status: mental status grossly normal Affect: normal affect Objective Data Vital Signs Vital Signs: Vital Signs - 24 hr 10/23/19 10:00 10/23/19 12:00 10/23/19 14:00 Temperature Pulse Rate 107 H 101 H 111 H Respiratory Rate Blood Pressure Pulse Oximetry 10/23/19 22:00 10/24/19 06:00 Temperature 99 F 98.5 F Pulse Rate 66 90 Respiratory Rate 18 18 Blood Pressure 128/51 L 145/85 H Pulse Oximetry 95 97 Intake/Output Intake/Output: Intake & Output 10/21/19 10/22/19 10/23/19 10/24/19 23:59 23:59 23:59 23:59 Intake Total 3300 6855 1220 400 Output Total 1225 1300 0 Balance 2075 3885 1220 400 Meds/Results Medications: Active Medications Generic Name Dose Route Start Last Admin Trade Name Freq PRN Reason Stop Dose Admin Acetaminophen 650 mg 10/20/19 13:32 Tylenol Tablet PO Q4H PRN Mild Pain (1-3) or Fever Hydrocodone Bitart/Acetaminophen 1 tab 10/20/19 13:32 10/24/19 03:18 [place] 5-325 Mg PO 1 tab Q4H PRN Administration Pain Rated 4-6 Dextrose 12.5 gm 10/20/19 15:25 Dextrose 50% Syringe IV PUSH PRN PRN Hypoglycemia Protocol Docusate Sodium 100 mg 10/22/19 17:00 10/23/19 17:28 Colace Capsule PO Not Given BID ASHER Glucagon 1 mg 10/20/19 15:25 Glucagon For Inj IM PRN PRN Hypoglycemia Protocol Glucose 15 gm 10/20/19 15:25 Glutose 15 PO PRN PRN Hypoglycemia Protocol Metronidazole 500 mg in 100 mls @ 100 mls/hr 10/20/19 20:00 10/24/19 03:45 Flagyl 500 Mg/Iso Soln 100 Ml IVPB Infused Q6H ASHER Infusion Dextrose 1,000 mls @ 100 mls/hr 10/20/19 15:25 Dextrose 5% 1,000 Ml IVPB PRN PRN Hypoglycemia Protocol Ceftriaxone Sodium/Dextrose 1 gm in 50 mls @ 100 mls/hr 10/21/19 12:00 10/23/19 12:30 Rocephin 1 Gm/D5w 50 Ml IVPB 100 mls/hr NOON ASHER Administration Insulin Aspart 3 - 6 units 10/20/19 17:00 10/23/19 17:27 Novolog SUB-Q 4 units TIDWM ASHER Administration Protocol Insulin Aspart 5 units
[2019-10-24 08:27] LABS: Glucose Point of Care 179 (65-105)
[2019-10-24] MEDS: POTASSIUM CHLORIDE 20 MEQ TABLET 60 MEQ PO (09:27)
[2019-10-24] MEDS: MAGNESIUM SULF 4 GM/WATER100ML 4 GM/100 ML BAG IVPB (09:28)
[2019-10-24] MEDS: INSULIN ASPART (*BKC) 100 UNITS/ML 8 UNITS SUB-Q ×3 (09:29→18:09)
[2019-10-24] MEDS: INSULIN GLARGINE (*BKC) 100 UNITS/ML 20 UNITS SUB-Q ×2 (09:30→18:08)
[2019-10-24] MEDS: NEOMYCIN/POLYMYXIN/DEXAMETH OP SUSP 5 ML BTL 1 DROP EACH EYE ×4 (09:43→21:29)
--- NOTE | 2019-10-24 11:30 | PCOTNOTE ---
Attempted to see patient this am, however patient reported getting up independently to and from bathroom since surgery. Pt set up for bathing and stated she could handle it from there. Patient had no concerns at this time as pertains to OT.
[2019-10-24 12:24] LABS: Glucose Point of Care 190 (65-105)
--- NOTE | 2019-10-24 12:26 | PM.IMPN ---
Progress Note: A&P Assessment and Plan (1) Osteomyelitis of great toe of right foot: Code(s): M86.9 - Osteomyelitis, unspecified Status: Acute Assessment and Plan: R great toe XR confirmed osteomyelitis; now POD#2 s/p R hallux amputation by Dr Marshall 10/22/19. Blood cultures growing Group B strep; R great toe culture also with growth of Staph aureus. Dr Alonso following; appreciate recommendations. Continue ceftriaxone day 5 of 6 through tomorrow's dose. Anticipate possible discharge tomorrow after afternoon Rocephin dose with oral cefdinir through 10/28. (2) Septicemia: Code(s): A41.9 - Sepsis, unspecified organism Status: Acute Assessment and Plan: Evident by fever, tachycardia, and leukocytosis, improved and now afebrile. Etiology osteomyelitis R great toe with positive blood cultures. See above. 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 Lapse in insurance and changing jobs left her without a PCP and has had trouble getting into a PCP taking new patients due to COVID pandemic. She noted she used to take long-acting insulin twice daily and scheduled short-acting insulin plus sliding scale with each meal. We will try increasing Lantus 20mg BID today and increase scheduled Novolog 8 units TIDWM. Will monitor with accu-cheks and increase insulin as needed. Discussed the importance of establishing with PCP [facility] and discussed the importance of tight glycemic control for wound healing. (4) Hyponatremia: Code(s): E87.1 - Hypo-osmolality and hyponatremia Status: Acute Assessment and Plan: 134 today, will monitor. BG control. (5) Left keratitis: Code(s): H16.9 - Unspecified keratitis Status: Acute Assessment and Plan: Continue eye ointment. (6) Hypokalemia: Code(s): E87.6 - Hypokalemia Status: Acute Assessment and Plan: K 3.0 this morning; mag low at 1.3; both replaced and will check in AM. Subjective Date/time seen: 10/24/19 12:15 Interval history: Ms. Casillas is a pleasant 59yo F admitted with osteomyelitis and septicemia now POD#2 s/p R hallux amputation by Dr Marshall. She is feeling well today and offers no complaints. Denies chest pain, shortness of breath. Tolerating oral intake without nausea or vomiting. Patient seen today with her sister, Roz, visiting at bedside. Review of Systems Review of Systems: Narrative: Twelve systems were reviewed with pertinent positives and negatives as per HPI. Exam Narrative: Exam Narrative: General: Female resting comfortably in bed in no acute distress. HEENT: Normocephalic, EOMI, oral mucosa moist. Cardiovascular: Rate and rhythm are regular. Respiratory: Lungs clear to auscultation all cui. Non-labored breathing. Abdomen: Soft, non-tender, non-distended, bowel sounds present. Extremities: R foot dressing clean/dry/intact. Able to wiggle toes SATHISH. Left great toe also amputated, many years ago per patient. Neuro: No focal neurological deficits. Speech is clear. Objective Data Vital Signs Vital Signs: Last Vital Signs Temp 97.4 F L 10/24/19 14:00 Pulse 115 H 10/24/19 14:00 Resp 18 10/24/19 14:00 BP 98/55 L 10/24/19 14:00 Pulse Ox 100 10/24/19 14:00 Intake/Output Intake/Output: Intake & Output 10/21/19 10/22/19 10/23/19 10/24/19 23:59 23:59 23:59 23:59 Intake Total 3300 6855 1220 880 Output Total 1225 1300 0 Balance 2075 5555 1220 880 Meds/Results Medications: Active Medications Generic Name Dose Route Start Last Admin Trade Name Freq PRN Reason Stop Dose Admin Acetaminophen 650 mg 10/20/19 1
--- NOTE | 2019-10-24 12:29 | WPDINFPN2 ---
Progress Note: A&P Assessment and Plan (1) Bacteremia: Code(s): R78.81 - Bacteremia Status: Acute Assessment and Plan: 1. Grp B Strep bacteremia with infection, Toe source 2. OM of R 1st toe. S aureus (susceptible) also isolated. 3. 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 Then oral cefdinir 300 bid through 10/28. Subjective Date/time seen: 10/24/19 12:29 Interval history: no complaints Exam Narrative: Exam Narrative: afebrile Const: General: no acute distress Resp: Effort & Inspection: normal respiratory effort Auscultation: clear to auscultation bilaterally Cardio: Rate: regular rate Rhythm: regular rhythm Heart sounds: no murmurs Objective Data Vital Signs Vital Signs: Vital Signs - 24 hr 10/23/19 14:00 10/23/19 22:00 10/24/19 06:00 Temperature 37.2 C 36.9 C Pulse Rate 111 H 66 90 Respiratory Rate 18 18 Blood Pressure 128/51 L 145/85 H Pulse Oximetry 95 97 Intake/Output Intake/Output: Intake & Output 10/21/19 10/22/19 10/23/19 10/24/19 23:59 23:59 23:59 23:59 Intake Total 3300 6855 1220 880 Output Total 1225 1300 0 Balance 2075 5555 1220 880 Meds/Results Medications: Active Medications Generic Name Dose Route Start Last Admin Trade Name Freq PRN Reason Stop Dose Admin Acetaminophen 650 mg 10/20/19 13:32 Tylenol Tablet PO Q4H PRN Mild Pain (1-3) or Fever Hydrocodone Bitart/Acetaminophen 1 tab 10/20/19 13:32 10/24/19 03:18 [place] 5-325 Mg PO 1 tab Q4H PRN Administration Pain Rated 4-6 Dextrose 12.5 gm 10/20/19 15:25 Dextrose 50% Syringe IV PUSH PRN PRN Hypoglycemia Protocol Docusate Sodium 100 mg 10/22/19 17:00 10/24/19 09:43 Colace Capsule PO Not Given BID ASHER Glucagon 1 mg 10/20/19 15:25 Glucagon For Inj IM PRN PRN Hypoglycemia Protocol Glucose 15 gm 10/20/19 15:25 Glutose 15 PO PRN PRN Hypoglycemia Protocol Dextrose 1,000 mls @ 100 mls/hr 10/20/19 15:25 Dextrose 5% 1,000 Ml IVPB PRN PRN Hypoglycemia Protocol Ceftriaxone Sodium/Dextrose 1 gm in 50 mls @ 100 mls/hr 10/21/19 12:00 10/23/19 12:30 Rocephin 1 Gm/D5w 50 Ml IVPB 100 mls/hr NOON ASHER Administration Insulin Aspart 3 - 6 units 10/20/19 17:00 10/23/19 17:27 Novolog SUB-Q 4 units TIDWM ASHER Administration Protocol Insulin Aspart 8 units 10/24/19 08:20 10/24/19 09:29 Novolog SUB-Q 8 units TIDWM ASHER Administration Insulin Glargine 20 units 10/24/19 09:00 10/24/19 09:30 Lantus SUB-Q 20 units BID ASHER Administration Loperamide HCl 2 mg 10/21/19 11:07 10/24/19 09:35 Loperamide Hcl PO 2 mg PRN PRN Administration Diarrhea Magnesium Hydroxide 30 ml 10/22/19 13:55 Milk Of Magnesia PO BID PRN Constipation Neomycin/Polymyxin/Bacitracin 1 applic 10/20/19 21:00 10/24/19 09:43 Triple Antibiotic Ointment TOPICAL Not Given Q12HR [facility] Neomycin/Polymyxin/Dexamethasone 1 drop 10/20/19 17:00 10/24/19 09:43 Maxitrol EACH EYE 1 drop QID [facility] Administration Ondansetron HCl 4 mg 10/22/19 13:55 Zofran Inj IV PUSH Q4H PRN Nausea And Vomiting Saccharomyces Boulardii 250 mg 10/24/19 11:30 Florastor PO BID [facility] Radiology Results: ITS Impressions Toe X-Ray 10/20/19 12:30 IMPRESSION: Right 1st tuft osteomyelitis, soft tissue ulceration, swelling. Foot X-Ray 10/21/19 12:14 IMPRESSION: 1. Worsening Charcot's joint. Labs Labs: Laboratory Results - last 24 hr 10/23/19 10/23/19 10/24/19 17:18 22:30 05:56 WBC 10.9 H RBC 3.77 L Hgb 10.7 L Hct 32.3 L MCV 85.7 MCH 28.4 MCHC 33.1 RDW 13.2 Plt Count 375 MPV 8.7 Immature Gran % (Auto) 3.5 H Neut % (Auto) 47.0 Lymph % (Auto) 40.2 Hall % (Auto) 5.5 Eos % (Auto) 3.0 Baso % (Auto) 0.8 Lymph # (Auto)
[2019-10-24] MEDS: SACCHAROMYCES BOULARDII 250 MG CAPSULE PO ×2 (12:58→18:06)
[2019-10-24 14:00] VITALS: BP 98/55; PULSE 115; RESP 18; TEMP 36.3; O2SAT 100
[2019-10-24] MEDS: INSULIN ASPART (*BKC) 100 UNITS/ML SUB-Q (18:08)
[2019-10-24 18:56] LABS: Glucose Point of Care 215 (65-105)
[2019-10-24 22:00] VITALS: BP 132/65; PULSE 92; RESP 16; TEMP 36.9; O2SAT 98
[2019-10-24 22:12] LABS: Glucose Point of Care 137 (65-105)
[2019-10-25 05:59] VITALS: BP 113/59; PULSE 87; RESP 16; TEMP 36.1; O2SAT 99
[2019-10-25 06:26] LABS: Blood Urea Nitrogen 17 mg/dL (7-17); Calcium 8.1 mg/dL (8.4-10.2); Carbon Dioxide 26 mmol/L (22-30); Chloride 102 mmol/L (98-107); Estimated CRCL calculation 72 ml/min; Estimated Glomerular Filt Rate > 60; Glucose 177 mg/dL (65-105); Magnesium 1.9 mg/dL (1.6-2.3); Potassium 3.8 mmol/L (3.4-5.0); Sodium 136 mmol/L (137-145)
--- NOTE | 2019-10-25 09:01 | PM.PNORT ---
Progress Note: A&P Assessment and Plan (1) Osteomyelitis of great toe of right foot: Code(s): M86.9 - Osteomyelitis, unspecified Status: Acute Assessment and Plan: POD #3: RIGHT Hallux Amputation Dressing changed this AM. Change daily. Apply adaptic, 4x4 gauze and wrap with kerlex. Continue post op shoe. Weight bearing on heel with walker. Plan for transition to oral antibiotics as ordered by Dr. Alonso today. Continue PT/OT. Plan for follow up in 2 weeks for suture removal. 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 No new recommendations at this time Subjective Subjective Date/Time Seen: 10/25/19 09:01 Patient feeling well. No new complaints. Wants to go home. Review of Systems Constitutional: Constitutional: Denies chills, Denies fatigue, Denies fever(s) and Denies weakness Cardiovascular: Cardiovascular: Denies chest pain, Denies pedal edema and Denies lightheadedness Respiratory: Respiratory: Denies cough, Denies dyspnea and Denies wheezing Gastrointestinal: Gastrointestinal: Denies abdominal pain, Denies constipation, Denies diarrhea, Denies nausea and Denies vomiting Musculoskeletal: Musculoskeletal: Reports as per HPI Exam Const: General: comfortable and no acute distress Resp: Effort & Inspection: normal respiratory effort Cardio: Rate: regular rate Rhythm: regular rhythm GI: Inspection: non-distended Skin: General skin exam: normal color Wounds: wounds noted (Right Hallux Amputation ) Neuro: Cognition (Neuro): normal cognition Speech: normal speech Extrem: Right lower extremity: foot (s/p right hallux amputation ) Details: normal capillary refill, toes with normal ROM (aside from hallux ) and motor-sensory exam Details: two point discrimination abnormal Location: in the 2nd digit, in the 3rd digit, in the 4th digit and in the 5th digit and light-touch abnormal Location: in the 2nd digit, in the 3rd digit, in the 4th digit and in the 5th digit Other: Right Hallux Amputation. Incision remains well-approximated. No signs of dehiscence at this time. Mild surrounding redness- improved, relieved with elevation. Remainder of the right foot without redness, warmth, swelling or signs of infection. Psych: Mental Status: mental status grossly normal Affect: normal affect Objective Data Vital Signs Vital Signs: Vital Signs - 24 hr 10/24/19 14:00 10/24/19 22:00 10/25/19 05:59 Temperature 36.3 C L 36.9 C 36.1 C L Pulse Rate 115 H 92 87 Respiratory Rate 18 16 16 Blood Pressure 98/55 L 132/65 113/59 L Pulse Oximetry 100 98 99 Intake/Output Intake/Output: Intake & Output 10/22/19 10/23/19 10/24/19 10/25/19 23:59 23:59 23:59 23:59 Intake Total 6855 1270 2120 500 Output Total 1300 0 Balance 5555 1270 2120 500 Meds/Results Medications: Active Medications Generic Name Dose Route Start Last Admin Trade Name Freq PRN Reason Stop Dose Admin Acetaminophen 650 mg 10/20/19 13:32 Tylenol Tablet PO Q4H PRN Mild Pain (1-3) or Fever Hydrocodone Bitart/Acetaminophen 1 tab 10/20/19 13:32 10/24/19 03:18 [place] 5-325 Mg PO 1 tab Q4H PRN Administration Pain Rated 4-6 Dextrose 12.5 gm 10/20/19 15:25 Dextrose 50% Syringe IV PUSH PRN PRN Hypoglycemia Protocol Docusate Sodium 100 mg 10/22/19 17:00 10/24/19 18:09 Colace Capsule PO Not Given BID ASHER Glucagon 1 mg 10/20/19 15:25 Glucagon For Inj IM PRN PRN Hypoglycemia Protocol Glucose 15 gm 10/20/19 15:25 Glutose 15 PO PRN PRN Hypoglycemia Protocol Dextrose 1,000 mls @ 100 mls/hr 10/20/19 15:25 Dextrose 5% 1,000 Ml IVPB PRN PRN Hypoglycemia Protocol Ceftriaxone Sodium/Dextrose 1 gm in 50 mls @ 100 mls/hr 10/21/19 12:00
--- NOTE | 2019-10-25 10:32 | PM.DS ---
DS: Admitting Diagnosis Admitting Diagnosis Admitting Diagnosis: Sepsis, unspecified organism DS: Discharge Diagnosis Discharge Diagnosis (1) Osteomyelitis of great toe of right foot: Code(s): M86.9 - Osteomyelitis, unspecified Status: Acute Assessment and Plan: Date of Service 10/25/19 Ms. Vinny Ospina is a pleasant 59yo F with history of insulin-dependent type 2 DM who presented to the ED for evaluation of nausea, vomiting, fever, and right great toe wound. Imaging confirmed osteomyelitis of right great toe. Orthopedic surgery was consulted and she was seen by Dr Marshall. Dr Marshall performed R hallux amputation 10/22/19. Blood cultures grew Group B streptococcus, toe specimen grew same in addition to Staph aureus and she was seen by Dr Alonso, infectious disease. She received 6 days of IV Rocephin and was discharged with oral Cefdinir to complete a 10-day course per Dr Alonso's recommendations. Unfortunately, patient noted she recently changed jobs and with the lapse of insurance, she was in the process of finding a new PCP and had been out of her insulin since June. She was restarted on a basal-bolus regimen similar to what she had been on in the past and blood sugars were more controlled prior to discharge. Hgb A1c 13.8. She was having a bit of diarrhea after surgery, treated with imodium and probiotic. She was educated on instructions to return to ED or call PCP if having significant diarrhea at home. Suspect GI upset related to antibiotics but stool studies are pending at discharge; C diff is negative. She was doing very well postoperatively and was hemodynamically stable for discharge 10/25/19 with instructions for daily dressing changes (her sister, Roz, will help with at home), follow up with Dr Marshall, and establish care with PCP [facility]. R great toe XR confirmed osteomyelitis; discharged POD#3 s/p R hallux amputation by Dr Marshall 10/22/19. Blood cultures grew Group B strep; R great toe culture also with growth of Staph aureus. Seen by ID. IV Rocephin x 6 days and discharged with oral cefdinir through 10/28. (2) Septicemia: Code(s): A41.9 - Sepsis, unspecified organism Status: Acute Assessment and Plan: Evident by fever, tachycardia, and leukocytosis, improved and now afebrile. Etiology osteomyelitis R great toe with positive blood cultures. See above. 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 Lapse in insurance and changing jobs left her without a PCP and has had trouble getting into a PCP taking new patients due to COVID pandemic. She noted she used to take long-acting insulin twice daily and scheduled short-acting insulin plus sliding scale with each meal. Discharged with Lantus 20mg BID and scheduled Novolog 8 units TIDWM plus sliding scale. Discussed the importance of establishing with PCP [facility] and discussed the importance of tight glycemic control for wound healing. (4) Hyponatremia: Code(s): E87.1 - Hypo-osmolality and hyponatremia Status: Acute Assessment and Plan: Improved. (5) Left keratitis: Code(s): H16.9 - Unspecified keratitis Status: Acute Assessment and Plan: Continue eye ointment. (6) Hypokalemia: Code(s): E87.6 - Hypokalemia Status: Acute Assessment and Plan: Potassium and magnesium replaced, stable day of discharge. DS: Summary Time Spent with Patient Time attestation: Total time spent providing and/or coordinating discharge services: 35 minutes Exam Narrative: Exam Narrative: Last Vital Signs Temp 97.0 F L
[2019-10-25] MEDS: SACCHAROMYCES BOULARDII 250 MG CAPSULE PO (10:43)
[2019-10-25] MEDS: INSULIN GLARGINE (*BKC) 100 UNITS/ML 20 UNITS SUB-Q (10:45)
[2019-10-25] MEDS: NEOMYCIN/POLYMYXIN/DEXAMETH OP SUSP 5 ML BTL 1 DROP EACH EYE (10:45)
[2019-10-25] MEDS: INSULIN ASPART (*BKC) 100 UNITS/ML 8 UNITS SUB-Q (10:46)
== END 2019-10-25 13:30 | disposition home or self-care (01) | DRG 854 ==
LOC: ANHED 13:40 → ANHIMU 14:27 → ANH3MEDSUR 10-25 12:54 → ANHIMU 10-29 13:12
PROVIDERS: Nurse Practitioner Family; Orthopaedic Surgery; Physician Assistant; Admitting Provider Internal Medicine; Emergency Provider Emergency Medicine; Visit Provider Physician Assistant
PROC: 0Y6P0Z1 Detachment at Right 1st Toe, High, Open Approach (ICD-10-PCS; principal; 2019-10-22 11:00)
DX: A40.1 Sepsis due to streptococcus, group B (principal); E87.1 Hypo-osmolality and hyponatremia; M86.8X7 Other osteomyelitis, ankle and foot; L97.518 Non-pressure chronic ulcer of other part of right foot with other specified severity; B95.61 Methicillin susceptible Staphylococcus aureus infection as the cause of diseases classified elsewhere; E11.621 Type 2 diabetes mellitus with foot ulcer; E11.610 Type 2 diabetes mellitus with diabetic neuropathic arthropathy; E11.42 Type 2 diabetes mellitus with diabetic polyneuropathy; E11.69 Type 2 diabetes mellitus with other specified complication; E11.319 Type 2 diabetes mellitus with unspecified diabetic retinopathy without macular edema; E11.65 Type 2 diabetes mellitus with hyperglycemia; E87.6 Hypokalemia; R82.71 Bacteriuria; R19.7 Diarrhea, unspecified; H16.9 Unspecified keratitis; K21.9 Gastro-esophageal reflux disease without esophagitis; Z89.412 Acquired absence of left great toe; Z79.4 Long term (current) use of insulin; Z87.891 Personal history of nicotine dependence; Z88.0 Allergy status to penicillin; Z88.1 Allergy status to other antibiotic agents; Z88.8 Allergy status to other drugs, medicaments and biological substances
CPT/HCPCS: 36415; 36600; 51701; 73630; 73660; 80048; 80053; 80076; 81001; 82010; 82375; 82805; 82947; 82948; 83036; 83050; 83605; 83690; 83735; 84100; 84484; 85025; 85027; 85610; 85652; 85730; 86140; 87015; 87040; 87045; 87046; 87070; 87077; 87147; 87186; 87205; 87269; 87272; 87324; 87427; 88305; 88311; 89055; 93005; 96361; 96365; 96366; 96367; 96368; 96375; 97110; 97116; 97161; 97165; 97530; 99285; A9270; G0378; J0131; J0696; J1100; J1815; J1956; J2250; J2270; J2370; J2405; J2704; J2765; J3010; J3370; J3475; J3480; J7030; J7120

== ENCOUNTER 2020-10-11 12:33 | Emergency (ER) | payer BC, SELFPAY ==
--- NOTE | ~2020-10-11 | CT_ITS ---
EXAMINATION: CT abdomen pelvis wo con DATE: 10/11/2020 14:13 INDICATION: Left-sided abdominal pain TECHNIQUE: Computed tomography (CT) of the abdomen and pelvis was performed without intravenous contr ast. The dose-length product (DLP) was 827.41 mGy-cm. Automated exposure control and iterative recons truction technique were employed. COMPARISON: None FINDINGS: Minimal dependent atelectasis is present in the lung bases. The heart size is normal. There is a small to moderate-sized hiatal hernia. A gastric lap band apparatus is seen. The gallbladder is surgically absent. The liver, spleen, pancreas, and adrenal glands are normal. There is a 4 mm stone of the proximal left ureter which causes mild hydronephrosis. An 11 mm stone is present in the left renal pelvis. There are nonobstructing stones of the right kidney measuring up to 2 mm. A 1 mm nonobs tructing stone is present in the left kidney lower pole. No pathologically enlarged abdominal or pelv ic lymph nodes are identified. There is no free intraperitoneal gas or evidence of bowel obstruction. There is calcified atherosclerosis of the aorta and many of the other arteries. The appendix is norm al. There is severe lumbar spondylosis. IMPRESSION: 1. 4 mm stone in the proximal ureter and 11 mm stone in the left renal. 2. Bilateral nonobstructing nephrolithiasis. Reviewed, dictated and finalized at location A.
[2020-10-11 12:46] VITALS: BP 131/80; PULSE 105; RESP 20; TEMP 36.8; O2SAT 96
[2020-10-11 13:27] LABS: Basophils Percent Auto 0.4 % (0.2-1.2); Eosinophils Percent Auto 0.4 % (0-4.4); Hematocrit 37.8 % (37.0-47.0); Hemoglobin 12.3 g/dL (12.0-15.0); Immature Granulocyte Absolute 0.04 K/mm3 (0.00-0.031); Immature Granulocyte Percent A 0.4 % (0-0.5); Lymphocytes Absolute Auto 2.81 K/mm3 (0.9-3.2); Lymphocytes Percent Auto 24.9 % (18.3-44.2); Mean Corpuscular HGB Conc 32.5 g/dl (32-36); Mean Corpuscular Hemoglobin 28.4 pg (26-34); Mean Corpuscular Volume 87.3 fl (80-100); Mean Platelet Volume 9.3 fl (7.4-10.4); Monocytes Absolute Auto 0.6 K/mm3 (0.1-0.6); Monocytes Percent Auto 5.7 % (2.6-8.5); Neutrophils Absolute Auto 7.7 K/mm3 (1.3-6.7); Neutrophils Percent Auto 68.2 % (45.5-73.1); Platelet Count Result 236 k/mm3 (150-375); Red Blood Count 4.33 M/mm3 (4.2-5.4); Red Cell Distribution Width 12.8 % (11.5-14.5); White Blood Count 11.3 K/mm3 (4.5-10.0)
[2020-10-11 13:35] LABS: Add Urine Microscopic? YES; Appearance Urine Cloudy (Clear); Bilirubin Urine Negative (Negative); Blood Urine 3+ (Negative); Color Urine Yellow (Yellow); Glucose Urine UA 1+ mg/dL (Negative); Ketones Urine Negative (Negative); Leukocyte Esterase Ur 1+ LEU/UL (Negative); Mucus Urine Rare /lpf; Nitrate Urine Negative (Negative); Protein Urine Negative (Negative); RBC Urine 51-75 /hpf (0-2); Specific Grav Ur 1.013 (1.001-1.035); Squamous Epithelial Cell Urine Many /hpf (Few); Urobilinogen Urine Negative mg/dL (<2.0)
[2020-10-11 13:41] LABS: Alanine Aminotransferase 25 U/L (4-35); Albumin Level 4.5 g/dL (3.5-5.1); Alkaline Phosphatase 55 U/L (38-126); Anion Gap 12 mmol/L (8-16); Aspartate Amino Transferase 32 U/L (14-36); Bilirubin,Total 0.8 mg/dL (0.2-1.3); Blood Urea Nitrogen 24 mg/dL (7-17); Calcium 9.3 mg/dL (8.4-10.2); Carbon Dioxide 22 mmol/L (22-30); Chloride 103 mmol/L (98-107); Estimated CRCL calculation 49 ml/min; Estimated Glomerular Filt Rate 51; Glucose 222 mg/dL (65-105); Lipase 55 U/L (23-300); Potassium 4.7 mmol/L (3.4-5.0); Sodium 137 mmol/L (137-145)
[2020-10-11] MEDS: KETOROLAC 30 MG/ML VIAL (*BKC) IV PUSH (14:07)
[2020-10-11 14:31] VITALS: BP 121/71; PULSE 101; RESP 20; O2SAT 95
--- NOTE | 2020-10-11 14:43 | ED.ABDPAIN ---
HPI - Abdominal Pain General Chief Complaint: Abdominal Pain Stated Complaint: LUQ pain, vomiting Time Seen by Provider: 10/11/20 12:40 Source: patient Mode of arrival: ambulatory Limitations: no limitations History of Present Illness HPI narrative: 60-year-old female Patient states that she is got chronic diarrhea for a year since she was treated for sepsis She is not sure what the sepsis was from Note she had to have 2 big toes amputated Just recently within the last couple of days she started taking cholestyramine to help control those symptoms Since yesterday she has been having episodes of very severe sharp pains in her left upper quadrant along with some nausea There was one memorable explosive bowel movements at the onset of this but since then has been back to her typical bowel habits and they really have not affected her discomfort at all She has not noted dysuria or hematuria or a fever Review of the chart and it looks like she actually had osteomyelitis in the toes related to diabetes versus something like having complication of high-dose pressors Related Data Home Medications Medication Instructions Recorded Confirmed neomycin-polymyxin B-dexameth 1 drjt PICKENS QID 10/20/19 10/20/19 Allergies Allergy/AdvReac Type Severity Reaction Status Date / Time clavulanic acid AdvReac Severe SEVERE Verified 10/11/20 12:49 VOMITING metformin AdvReac Severe SEVERE Verified 10/11/20 12:49 VOMITING Review of Systems Review of Systems: All systems reviewed & are unremarkable except as noted in HPI and below Constitutional: Constitutional: Reports no additional constitutional complaints, Denies chills, Denies fever(s) and Denies headache(s) Eyes: Eyes: Reports no additional eye complaints and Denies change in vision ENT: Denies headache(s) and Denies sore throat Cardiovascular: Cardiovascular: Denies chest pain and Denies dyspnea Respiratory: Respiratory: Denies cough and Denies dyspnea Gastrointestinal: Gastrointestinal: Reports abdominal pain, Reports diarrhea, Reports nausea and Denies vomiting Genitourinary: Genitourinary: Denies urinary frequency, Denies nocturia and Denies dysuria Musculoskeletal: Musculoskeletal: Denies deformity, Denies arthralgias, Denies joint swelling and Denies numbness Integumentary/Breasts: Skin/Breast: Denies rash and Denies wounds Neurologic: Denies headache(s), Denies focal weakness and Denies numbness Psychiatric: Psychiatric: Reports no additional psychiatric complaints Endocrine: Endocrine: Reports no additional endocrine complaints Hematologic/Lymphatic: Hematologic/Lymphatic: Reports no additional hematologic/lymphatic complaints Allergic/Immunologic: Allergic/Immunologic: Reports no additional allergic/immunologic complaints [facility] Past Medical History Medical History (Updated 10/11/20 @ 17:23 by John Calabrese MD) Charcot foot due to diabetes mellitus Gastroesophageal reflux disease Insulin dependent type 2 diabetes mellitus Complicated by retinopathy and neuropathy. Osteomyelitis (~06/2001) Left great toe which was subsequently amputated. Surgical History Surgical History (Updated 12/06/19 @ 15:08 by Rufino Lara) History of amputation of left great toe (~06/2001) History of section History of cholecystectomy (~11/1999) History of oophorectomy History of tubal ligation Family History Family History (System 12/06/19 @ 15:08 by Rufino Lara) Other Cancer Diabetes mellitus Hypertension Respiratory disorder Social History Social History (System 12/06/19 @ 15:08 by Rufino Lara) Social History: Surrogate decision maker: Sarah Garcia, daughter. Sister Aicha also designated as an emergency contact. Code status: Full code. Smoking status: Former smoker Alcohol intake: never Substance use: never Additional living arrangements comments: Patient lives with her significant other in [place]. Additi
[2020-10-11 15:05] VITALS: BP 115/66; PULSE 101; RESP 20; O2SAT 100
[2020-10-11 16:01] VITALS: BP 104/70; PULSE 99; RESP 20; O2SAT 100
[2020-10-11 18:13] VITALS: BP 101/58; PULSE 98; RESP 17; O2SAT 100
== END 2020-10-11 18:14 | disposition home or self-care (01) ==
PROVIDERS: Emergency Provider Emergency Medicine; PCP Family Medicine
DX: N20.2 Calculus of kidney with calculus of ureter (principal); E11.40 Type 2 diabetes mellitus with diabetic neuropathy, unspecified; E11.319 Type 2 diabetes mellitus with unspecified diabetic retinopathy without macular edema; M14.679 Charcot's joint, unspecified ankle and foot; Z89.412 Acquired absence of left great toe; Z89.411 Acquired absence of right great toe; Z79.4 Long term (current) use of insulin
CPT/HCPCS: 36415; 74176; 80053; 81001; 83690; 85025; 87086; 87088; 96374; 99284; J1885

== ENCOUNTER 2022-04-17 09:30 | Emergency (ER) | payer BC, SELFPAY ==
[2022-04-17 09:40] VITALS: BP 146/79; PULSE 107; RESP 16; TEMP 36.3; O2SAT 99
--- NOTE | 2022-04-17 09:53 | ED.GENADULT ---
HPI - General Adult General Chief complaint: Unspecified Stated complaint: Right Side Bump on Face, Ear Irritation Time Seen by Provider: 04/17/22 09:53 Source: patient, RN notes reviewed and old records reviewed Mode of arrival: ambulatory Limitations: no limitations History of Present Illness HPI narrative: 61-year-old female presents to the [facility] with a right-sided ear infection with lymph node swelling and a right-sided headache that started yesterday. Patient is diabetic reports her sugars have been higher, 170s today, than normal. Denies any nausea or vomiting. Denies a sore throat. Onset (ago): day(s) (1) Related Data Home Medications Medication Instructions Recorded Confirmed dapagliflozin 10 mg tablet mg 04/17/22 ([facility]) Allergies Allergy/AdvReac Type Severity Reaction Status Date / Time clavulanic acid AdvReac Severe SEVERE Verified 04/17/22 09:38 VOMITING metformin AdvReac Severe SEVERE Verified 04/17/22 09:38 VOMITING Review of Systems Review of Systems: All systems reviewed & are unremarkable except as noted in HPI and below Constitutional: Constitutional: Reports no additional constitutional complaints Eyes: Eyes: Reports no additional eye complaints ENT: Reports as per HPI and Reports otalgia (Right ear with pre-auricular swelling) Cardiovascular: Cardiovascular: Reports no additional cardiovascular complaints, Denies chest pain and Denies dyspnea Respiratory: Respiratory: Reports no additional respiratory complaints, Denies chest congestion, Denies cough and Denies dyspnea Gastrointestinal: Gastrointestinal: Reports no additional gastrointestinal complaints, Denies abdominal pain, Denies nausea and Denies vomiting Musculoskeletal: Musculoskeletal: Reports no additional musculoskeletal complaints Integumentary/Breasts: Skin/Breast: Reports system reviewed and no additional complaints, except as docu Neurologic: Reports system reviewed and no additional complaints, except as documented Psychiatric: Psychiatric: Reports no additional psychiatric complaints Allergic/Immunologic: Allergic/Immunologic: Reports no additional allergic/immunologic complaints PMFSH Past Medical History Medical History Charcot foot due to diabetes mellitus Gastroesophageal reflux disease Insulin dependent type 2 diabetes mellitus Complicated by retinopathy and neuropathy. Osteomyelitis (~06/2001) Left great toe which was subsequently amputated. Surgical History Surgical History History of amputation of left great toe (~06/2001) History of section History of cholecystectomy (~11/1999) History of oophorectomy History of tubal ligation Family History Family History Other Cancer Diabetes mellitus Hypertension Respiratory disorder Social History Social History Social History: Surrogate decision maker: Sarah Garcia, daughter. Sister Aicha also designated as an emergency contact. Code status: Full code. Smoking status: Former smoker Alcohol intake: never Substance use: never Additional living arrangements comments: Patient lives with her significant other in [place]. Additional occupation/education comments: Works in [employer]. Gender identity (if verbalized by the patient): Female Sexual Orientation (if Verbalized by the Patient): Straight or Heterosexual Spiritual care concerns: Yes ([facility]) Comments At the time of my signature, I reviewed and agree with the nursing past medical, surgical, social, and family history. There is no relevant family history pertinent to the patient complaint. Exam Const: General: cooperative, healthy appearing, comfortable, no acute distress, well developed,
== END 2022-04-17 10:08 | disposition home or self-care (01) ==
PROVIDERS: Emergency Provider Nurse Practitioner; PCP Family Medicine
DX: H66.91 Otitis media, unspecified, right ear (principal); K21.9 Gastro-esophageal reflux disease without esophagitis; E11.21 Type 2 diabetes mellitus with diabetic nephropathy; E11.319 Type 2 diabetes mellitus with unspecified diabetic retinopathy without macular edema; E11.610 Type 2 diabetes mellitus with diabetic neuropathic arthropathy; Z79.4 Long term (current) use of insulin; Z89.412 Acquired absence of left great toe
CPT/HCPCS: 99213; G0463

== ENCOUNTER 2024-04-19 08:36 | Emergency (ER) | payer BC, SELFPAY ==
--- NOTE | ~2024-04-19 | XR_ITS ---
EXAMINATION: XR chest 2V DATE: 04/19/2024 09:40 INDICATION: Cough. Shortness of breath. TECHNIQUE: Frontal and lateral views of the chest were obtained. COMPARISON: Chest 2 views 03/11/16, CT abdomen and pelvis 10/11/2020 FINDINGS: There is mild atelectasis at left lung base. No pleural effusion or pneumothorax. The heart size is normal. There is a lap band around the proximal stomach. Surgical clips in the right upper q uadrant are likely from cholecystectomy. IMPRESSION: 1. Mild atelectasis at left lung base. Reviewed, dictated and finalized at location A. E TRADER
[2024-04-19 08:54] VITALS: BP 110/73; PULSE 107; RESP 16; TEMP 36.8; O2SAT 98
[2024-04-19 09:15] VITALS: PULSE 107; RESP 16; O2SAT 98
[2024-04-19 09:16] LABS: EDCOVIDSCREEN Negative (Negative); EDINFLUASCREEN Negative (Negative); EDINFLUBSCREEN Negative (Negative)
--- NOTE | 2024-04-19 09:20 | ED.URI ---
HPI - URI/Sore Throat General Chief Complaint: Upper Respiratory Infection Stated Complaint: cough,headache Time Seen by Provider: 04/19/24 09:20 Source: patient, RN notes reviewed and old records reviewed Mode of arrival: ambulatory Limitations: no limitations History of Present Illness HPI Narrative: 63-year-old female presents to the [facility] with complaints of cough, sinus congestion since Tuesday, 3 days. Has tried Coricidin HBP Cough and cold. Related Data Home Medications ?Medication ?Instructions ?Recorded ?Confirmed ?Last Taken ?Type sjedit-[id number]-bezdjrb 9 cap PO 02/22/23 03/19/24 Unknown History 3,000-9,500-15,000 unit capsule, delayed rel (Creon) Allergies Allergy/AdvReac Type Severity Reaction Status Date / Time clavulanic acid AdvReac Severe SEVERE Verified 04/19/24 17:25 VOMITING metformin AdvReac Severe SEVERE Verified 04/19/24 17:25 VOMITING Review of Systems Review of Systems: All systems reviewed & are unremarkable except as noted in HPI and below Constitutional: Constitutional: Reports no additional constitutional complaints ENT: Reports as per HPI and Reports nasal congestion Cardiovascular: Cardiovascular: Reports no additional cardiovascular complaints, Denies chest pain and Denies dyspnea Respiratory: Respiratory: Reports as per HPI, Reports chest congestion, Reports cough and Reports dyspnea (Intermittent) Musculoskeletal: Musculoskeletal: Reports no additional musculoskeletal complaints Integumentary/Breasts: Skin/Breast: Reports system reviewed and no additional complaints, except as docu PMFSH Past Medical History Medical History Charcot foot due to diabetes mellitus Osteomyelitis (~06/2001) Left great toe which was subsequently amputated. Insulin dependent type 2 diabetes mellitus Complicated by retinopathy and neuropathy. Gastroesophageal reflux disease Surgical History Surgical History History of oophorectomy History of section History of tubal ligation History of amputation of left great toe (~06/2001) History of cholecystectomy (~11/1999) Family History Family History Mother Diabetes mellitus Sibling Diabetes mellitus Non-Hodgkin lymphoma Grandparent Diabetes mellitus Other Cancer Hypertension Respiratory disorder Social History Social History (Reviewed 04/20/24 @ 08:34 by SUZE Tucker Social History: Surrogate decision maker: Sarah Garcia, daughter. Sister Aicha also designated as an emergency contact. Code status: Full code. Smoking status: Former smoker Alcohol intake: never Substance use: never Do You Feel Safe in your Home?: Yes Lack of Transportation: No Lack of Food: Never True Current Housing: I Have Housing Concerned About Future Housing: No Difficulty Paying Gas/Electric Bills: No Difficulty Paying for Meds: No Currently Unemployed: No Education: Bachelor's Degree Difficulty w/ Childcare or Family Care: No Living arrangements: with family Additional living arrangements comments: Patient lives with her significant other in [place]. Additional occupation/education comments: Works in [employer]. Gender identity (if verbalized by the patient): Female Sexual Orientation (if Verbalized by the Patient): Straight or Heterosexual Spiritual care concerns: Yes ([facility]) Comments At the time of my signature, I reviewed and agree with the nursing past medical, surgical, social, and family history. There is no relevant family history pertinent to the patient complaint. Exam Const: General: cooperative, comfortable, no acute distress, well developed, alert, ill appearing chronically and well nourished Nutritional Appearance: well nourished Orientation/consciousness: patient oriented x3 Limitations: no limitations HENMT: Head: normal to inspection Ears: hearing grossly normal bilaterally, external ears normal, TM's normal bilaterally, EAC's normal, mastoids normal and no periauricular adenopathy Face/Nose/Sinus: normal facial exam and face symmetric Face and sinus: normal facial exam and face symmetric Mouth: Yes Normal oral and palatal mucosa present, Yes lip normal, Yes tongue normal and Yes moist mucous membranes Throat: posterior oropharynx normal, uvula midline and no uvular edema Eyes: General: appearance normal, both eyes and all related structures Neck: Neck: normal visual inspection, full ROM, no lymphadenopathy and no meningeal signs Chest: Chest palpation & inspection: normal inspection of the chest Resp: Effort & Inspection: normal respiratory effort and able to speak in complete sentences Auscultation: no crackles (Upper), no rales, no rhonchi, no wheezes, diminished lung sounds bilateral in the lower lung cui and other Cardio: Rate: regular rate Skin: General skin exam: normal color and no rashes or lesions noted Neuro: General: patient oriented x3, gait normal, moves all extremities and no meningeal signs Cognition (Neuro): normal cognition Speech: normal speech Gait exam (Neuro): Normal gait present Extrem: General: normal to inspection, full ROM, capillary refill normal and normal gait Psych: Appearance: grossly normal and well kempt Mental Status: mental status grossly normal Speech and movement: Normal speech and movement present and Clear speech present Affect: normal affect Attitude: cooperative Course Course Level of Care: Express Care Visit Vital Signs Vital signs: Vital Signs Temperature 98.3 F 04/19/24 08:54 Pulse Rate 107 H 04/19/24 08:54 Respiratory Rate 16 04/19/24 08:54 Blood Pressure 110/73 04/19/24 08:54 Pulse Oximetry 98 04/19/24 08:54 Oxygen Delivery Room Air 04/19/24 08:54 Temperature 98.3 F 04/19/24 08:54 Pulse Rate 107 H 04/19/24 09:15 Respiratory Rate 16 04/19/24 09:15 Blood Pressure 110/73 04/19/24 08:54 Pulse Oximetry 98 04/19/24 09:15 Oxygen Delivery Room Air 04/19/24 08:54 Reviewed MDM - URI/Sore Throat MDM Narrative Medical decision making narrative: Patient sitting in exam. Nontoxic stable patient presents with URI symptoms,, congestion since Tuesday, 3 days. Chest x-ray shows atelectasis but due to past medical history will cover with doxycycline. Prescribing a steroid to diabetic. Discussed deep breathing, incentive spirometer. Patient appropriate for outpatient treatment follow-up Discharge instructions reviewed with patient, as well as provided in writing per nursing staff. The instructions also include specific and strict return/GO TO THE ER as well as f/u information. All questions have been answered, and the patient deny any further questions with discharge and discharge plan. Some parts of this dictation were generated by voice recognition software and may contain typographical and/or grammatical inaccuracies. Differential Diagnosis Differential diagnosis: Likely upper respiratory infection, otitis media, sinusitis, viral infection, bronchitis and influenza Lab Data Labs: Lab Results 04/19/24 Range/Units 08:58 POC Influenza A Ag Negative (Negative) POC Influenza B Ag Negative (Negative) POC SARS CoV-2 Ag Negative (Negative) Reviewed Imaging Data Radiologist's impression: EXAMINATION: XR chest 2V DATE: 04/19/2024 09:40 INDICATION: Cough. Shortness of breath. TECHNIQUE: Frontal and lateral views of the chest were obtained. COMPARISON: Chest 2 views 03/11/16, CT abdomen and pelvis 10/11/2020 FINDINGS: There is mild atelectasis at left lung base. No pleural effusion or pneumothorax. The heart size is normal. There is a lap band around the proximal stomach. Surgical clips in the right upper quadrant are likely from cholecystectomy. IMPRESSION: 1. Mild atelectasis at left lung base. Critical Care Time Critical Care Time Critical Care Time: No Discharge Plan Discharge Clinical Impression: Atelectasis of left lung Patient Disposition: Home, Self-Care Condition: Stable Instructions: Antibiotic Form, How to Use an Incentive Spirometer (ED), Atelectasis (ED) Additional Instructions: It is very important that you take 10 deep breaths every hour while awake Take doxycycline to reduce the chances of a pneumonia forming. Today your chest x-ray did not show signs of a pneumonia. Follow-up with your primary care provider If you develop worsening symptoms please go directly to the emergency room Patient Language: Panamanian Prescriptions: New doxycycline monohydrate 100 mg tablet 100 mg PO BID Qty: 14 0RF albuterol sulfate 90 mcg/actuation HFA aerosol inhaler 2 puff inhalation QID PRN (Reason: shortness of breath or wheezing) Qty: 6.7 0RF (DME) Aerochamber MV Spacer See Rx Instructions .Route Qty: 1 0RF Rx Instructions: As directed No Action Creon 3,000-9,500- 15,000 unit capsule,delayed release(DR/EC) 9 cap PO glucagon 3 mg/actuation spray,non-aerosol 3 mg intranasal ONCE Qty: 2 4RF Rx Instructions: as a single dose; may repeat once in 15 minutes if no response (DME) pen needle, diabetic 31 gauge x 5/16 needle See Rx Instructions .ROUTE .MEDSUPPLY Qty: 100 0RF Rx Instructions: As directed insulin aspart U-100 [Novolog U-100 Insulin aspart] 100 unit/mL solution 80 unit continuous subcutaneous infusion DAILY Qty: 80 4RF Farxiga 10 mg tablet 10 mg PO DAILY Qty: 90 3RF rosuvastatin 20 mg tablet 20 mg PO DAILY Qty: 90 1RF Follow-up/Referrals: UNKNOWN,DOCTOR [Primary Care Provider] - Stand Alone Forms: Work/School Release IP Time of Disposition: 10:32
== END 2024-04-19 10:45 | disposition home or self-care (01) ==
PROVIDERS: Emergency Provider Nurse Practitioner
DX: J98.11 Atelectasis (principal); Z20.822 Contact with and (suspected) exposure to COVID-19; Z87.891 Personal history of nicotine dependence; E11.610 Type 2 diabetes mellitus with diabetic neuropathic arthropathy; Z79.4 Long term (current) use of insulin; K21.9 Gastro-esophageal reflux disease without esophagitis
CPT/HCPCS: 71046; 87426; 87804; 99213; G0463

== ENCOUNTER 2025-02-26 12:24 | Outpatient (CLI) | payer BC, SELFPAY ==
--- NOTE | ~2025-02-26 | XR_ITS ---
XR abdomen/kub 1V 02/26/2025 12:44 INDICATION: Kidney stones TECHNIQUE: KUB COMPARISON: CT dated 10/11/2020 FINDINGS: Bowel gas pattern is normal. There is no evidence of free air, mass, organomegaly, ascites or obstruction. Thre there is a 1.4 cm left renal stone. There are vascular calcifications of the splenic and left renal artery. There are cholecystectomy clips. There is a laparoscopic adjustable gastric band. There are pelvic phleboliths. Bones appear intact. IMPRESSION: 1: Left nephrolithiasis. Reviewed, dictated and finalized at location O. CISE PHYSIOLOGIST CERTIFIED IMPRESSION: 1: Left nephrolithiasis.
== END 2025-02-26 12:25 | disposition home or self-care (01) ==
LOC: MICIMG 12:26
PROVIDERS: PCP Emergency Medicine; Visit Provider Urology
DX: N20.0 Calculus of kidney (principal)
CPT/HCPCS: 74018

== ENCOUNTER 2025-03-29 01:06 | Day surgery (SDC) | payer BC, SELFPAY ==
--- OUTSIDE RECORDS SUMMARY | 2025-02-19 09:30 | XMS_ITS ---
Author Organization 1 OF [facility] Address [address] [place] [address] Care Team Providers Care Barrel Repairer Name Role Phone Franklyn CLARK, Mettisarmani Primary Care Provider Unavail Fred Wylie Unavailable REASON FOR VISIT Piomic V2 Medications Medication SIG (Take, Route, Frequency, Duration) Notes Start Date End Date Status Rosuvastatin Calcium 20 MG Tablet TAKE 1 TABLET BY MOUTH ONCE DAILY Oral; Duration: 90 Days 04/25/2022 Unknown Lidocaine 5 % Patch External; Duration: 30 Days 06/24/2023 Unknown Pantoprazole Sodium 40 MG Tablet Delayed Release TAKE 1 TABLET BY MOUTH ONCE DAILY Oral; Duration: 30 Days 01/23/2022 Unknown NovoLOG ReliOn 100 UNIT/ML Solution Injection; Duration: 88 Days 04/25/2014 Unknown Farxiga 10 MG Tablet Oral; Duration: 90 Days 04/25 Unknown Medihoney Wound/Burn Dressing - Paste as directed Topical once daily; Duration: 1 month 08/30/2017 Unknown HumaLOG 04/25/2014 Unknown Gabapentin 06/23/2024 Unknown Encounters Encounter Location Date Provider Diagnosis 1 OF [facility] [address] [place] [address] 02/19/2025 Fred Andrew Plan Of Treatment Next Appt Details Provider Name:Fred Andrew, 03/18/2025 01:00:00 PM, [address], [place], [address], Provider Name:Fred Beckford Kamran, 03/20/2025 02:30:00 PM, [address] [facility], [facility] [address], [place], [address], Progress Notes * Silvina RAMIREZDOB :1960 (64 yo F)Acc No.[id number]:02/19/2025 CLINICAL TRIAL RELATED VISIT Patient: Silvina Lopes Provider: Ginna Andrew DPM :1960 A ge:64 Y S ex:Female Date:02/19/2025 Address:[address] [place], [place] [id number] Pcp:Tao Estes MD Subjective: * Chief Complaints: * P iomic V2 * Medications: D iscontinuedLevemir Ozempic (0.25 or 0.5 MG/DOSE) 2 MG/3ML Solution Pen-injector INJECT 0.25MG WEEKLY FOR 4 WEEKS, THEN INCREASE TO 0.5MG WEEKLY THEREAFTER. Subcutaneous Discontinued Levemir Discontinued Ozempic (0.25 or 0.5 MG/DOSE) 2 MG/3ML Solution Pen-injector INJECT 0.25MG WEEKLY FOR 4 WEEKS, THEN INCREASE TO 0.5MG WEEKLY THEREAFTER. Subcutaneous UnknownGabapentin HumaLOG Medihoney Wound/Burn Dressing - Paste as directed Topical once daily Farxiga 10 MG Tablet Oral NovoLOG ReliOn 100 UNIT/ML Solution Injection Pantoprazole Sodium 40 MG Tablet Delayed Release TAKE 1 TABLET BY MOUTH ONCE DAILY Oral Lidocaine 5 % Patch External Rosuvastatin Calcium 20 MG Tablet TAKE 1 TABLET BY MOUTH ONCE DAILY Oral Medication List reviewed and reconciled with the patientUnknown Gabapentin Unknown HumaLOG Unknown Medihoney Wound/Burn Dressing - Paste as directed Topical once daily Unknown Farxiga 10 MG Tablet Oral Unknown NovoLOG ReliOn 100 UNIT/ML Solution Injection Unknown Pantoprazole Sodium 40 MG Tablet Delayed Release TAKE 1 TABLET BY MOUTH ONCE DAILY Oral Unknown Lidocaine 5 % Patch External Unknown Rosuvastatin Calcium 20 MG Tablet TAKE 1 TABLET BY MOUTH ONCE DAILY Oral Medication List reviewed and reconciled with the patient * Electronic signature of Christopher Andrew DPM on 03/15/2025 at 01:55 AM DREDGE MASTER Sign off status: Pending * Provider: Ginna Andrew, DPM Date: Generated for Casandra mayer/Caroline/Yasmani on: 05/15/2024 01:55 AM DREDGE MASTER
--- OUTSIDE RECORDS SUMMARY | 2025-02-21 08:40 | XMS_ITS ---
Author Organization [address] [facility] Address [address] [place] [address] Care Team Providers Care Conveyor Monitor Name Role Phone Franklyn CLARK, Tao Primary Care Provider Fred Morales Unavailable [phone] Allergies No Known Allergies REASON FOR VISIT Piomic V 3 Medications Medication SIG (Take, Route, Frequency, Duration) Notes Start Date End Date Status Pantoprazole Sodium 40 MG Tablet Delayed Release TAKE 1 TABLET BY MOUTH ONCE DAILY Oral; Duration: 30 Days 01/23/2022 Active NovoLOG ReliOn 100 UNIT/ML Solution Injection; Duration: 88 Days 04/25/2014 Active Farxiga 10 MG Tablet Oral; Duration: 90 Days 04/25 Active Medihoney Wound/Burn Dressing - Paste as directed Topical once daily; Duration: 1 month 08/30/2017 Active HumaLOG 04/25/2014 Active Rosuvastatin Calcium 20 MG Tablet TAKE 1 TABLET BY MOUTH ONCE DAILY Oral; Duration: 90 Days 04/25/2022 Active Lidocaine 5 % Patch External; Duration: 30 Days 06/24/2023 Active Gabapentin 06/23/2024 Active Santyl 250 UNIT/GM Ointment Apply to wou nd as directed Externally Once a day 02/21/2025 Active Encounters Encounter Location Date Provider Diagnosis 1 OF [facility] [address] [place] [address] 02/21/2025 Fred Andrew Type 2 diabetes mellitus with peripheral neuropathy E11.42 and Ulcer of left foot with fat layer exposed L97.522 Assessments Encounter Date Diagnosis (ICD Code) Assessment Notes Treatment Notes Treatment Clinical Notes Section Notes 02/21/2025 Type 2 diabetes mellitus with peripheral neuropathy (ICD-10 - E11.42) 02/21/2025 Ulcer of left foot with fat layer exposed (ICD-10 - L97.522) Plan Of Treatment Medication Medication Name Sig Start Date Stop Date Notes Santyl 250 UNIT/GM Ointment Apply to wou nd as directed Externally Once a day 02/21/2025 Next Appt Details Follow Up: 4 days, Reason: V isit 4 Piomic Provider Name:Paraggabeharmeet Andrew, 03/18/2025 01:00:00 PM, [address], [place], [address], Provider Name:Fred Beckford Kamran, 03/20/2025 02:30:00 PM, [address], [place], [address], Procedure Notes * Category Sub-Category Detail Notes WOUND CARE: Wound debridement: 34666 (excisi onal debridement of subQ tissue - 1st 20 sq. cm or less): Sharp debridement performed with sterile instrumentation to remove non-viable subcutanous tissue (as well as any nonviable skin as necessary) down to the level of viable bleeding tissue, No anesthesia needed due to neuropathy, Hemostasis with compression as needed. Progress Notes * Silvina RAMIREZDOB :1960 (64 yo F)Acc No.[id number]:02/21/2025 CLINICAL TRIAL RELATED VISIT Patient: Casimiro moodyGiseletracieSilvina Provider: Ginna Andrew DPM :1960 A ge:64 Y S ex:Female Date:02/21/2025 Address:[address] [place] [address] [facility] Pcp:Tao Estes MD Subjective: * Chief Complaints: * P iomic V 3 * Medical History: Diabetes, neuropathy of feet Medical History Verified * Medications: T akingGabapentin HumaLOG [facility] Wound/Burn Dressing - Paste as directed Topical once daily Farxiga 10 MG Tablet Oral NovoLOG ReliOn 100 UNIT/ML Solution Injection Pantoprazole Sodium 40 MG Tablet Delayed Release TAKE 1 TABLET BY MOUTH ONCE DAILY Oral Lidocaine 5 % Patch External Rosuvastatin Calcium 20 MG Tablet TAKE 1 TABLET BY MOUTH ONCE DAILY Oral Medication List reviewed and reconciled with the patientTaking Gabapentin Taking HumaLOG Taking [facility] Wound/Burn Dressing - Paste as directed Topical once daily Taking Farxiga 10 MG Tablet Oral Taking NovoLOG ReliOn 100 UNIT/ML Solution Injection Taking Pantoprazole Sodium 40 MG Tablet Delayed Release TAKE 1 TABLET BY MOUTH ONCE DAILY Oral Taking Lidocaine 5 % Patch External Taking Rosuvastatin Calcium 20 MG Tablet TAKE 1 TABLET BY MOUTH ONCE DAILY Oral Medication List reviewed and reconciled with the patient * Allergies: N .K.D.A.yesAllergies Verified. Assessment: * Assessment: 1. T ype 2 diabetes mellitus with peripheral neuropathy - E11.42 (Primary) 2 .?Ulcer of left foot with fat layer exposed - L97.522 Plan: * Treatment: * Procedures: W OUND CARE:: Wound debridement: 1 1042 (excisional debridement of subQ tissue - 1st 20 sq. cm or less): Sharp debridement performed with sterile instrumentation to remove non-viable subcutanous tissue (as well as any nonviable skin as necessary) down to the level of viable bleeding tissue, No anesthesia needed due to neuropathy, Hemostasis with compression as needed..? * Procedure Codes: 1 1042 DEBRIDE SKIN/TISSUE * Follow Up: 4 days (Reason: Visit 4 Piomic) * Billing Information: * Procedure Codes: 88684 DEBRIDE SKIN/TISSUE. Images * 02/21/2025 LT foot photo, * Electronic signature of Christopher Andrew DPM on 03/15/2025 at 01:56 AM SECURITY SALES MANAGER Sign off status: Pending * Provider: Ginna Andrew DPM Date: Generated for Casandra mayer/Caroline/Yasmani on: 05/15/2024 01:56 AM SECURITY SALES MANAGER
--- OUTSIDE RECORDS SUMMARY | 2025-02-26 09:30 | XMS_ITS ---
Author Organization [address] [facility] Address [address] [place] [address] Care Team Providers Care Sales/Marketing Name Role Phone Franklyn CLARK, tisarmani Primary Care Provider Unavail Fred Wylie Unavailable REASON FOR VISIT Piomic V 4 Medications Medication SIG (Take, Route, Frequency, Duration) Notes Start Date End Date Status NovoLOG ReliOn 100 UNIT/ML Solution Injection; Duration: 88 Days 04/25/2014 Active Pantoprazole Sodium 40 MG Tablet Delayed Release TAKE 1 TABLET BY MOUTH ONCE DAILY Oral; Duration: 30 Days 01/23/2022 Active Lidocaine 5 % Patch External; Duration: 30 Days 06/24/2023 Active Rosuvastatin Calcium 20 MG Tablet TAKE 1 TABLET BY MOUTH ONCE DAILY Oral; Duration: 90 Days 04/25/2022 Active Santyl 250 UNIT/GM Ointment Apply to wou nd as directed Externally Once a day 02/21/2025 Active Gabapentin 06/23/2024 Active HumaLOG 04/25/2014 Active Medihoney Wound/Burn Dressing - Paste as directed Topical once daily; Duration: 1 month 08/30/2017 Active Farxiga 10 MG Tablet Oral; Duration: 90 Days 04/25 Active Encounters Encounter Location Date Provider Diagnosis [address] [facility] [address] [place] [address] 02/26/2025 Fred Andrew Plan Of Treatment Next Appt Details Follow Up: 3 Days, Reason: Provider Name:Fred Andrew, 03/18/2025 01:00:00 PM, [address], [place], [address], Provider Name:Fred Andrew, 03/20/2025 02:30:00 PM, [address], [place], [address], Procedure Notes * Category Sub-Category Detail Notes WOUND CARE: Dressing: Dressing applied to wound consisting of: hydrogel, adhesive foam. She will apply santly nightly with dressing changes. History and Physical Notes * HPI (History of Present Illness) Category Sub-Category Detail Notes Category Not es Primary reason for visit: Subject presents for Piomic V4. She has been wearing the CAM walker boot now with all WB activity. She is being careful to avoid any avoidable back pain. She is wearing a shoe lift on the contralateral foot. She is seeing a nephrologst soon to discuss options for her bilateral kidney stones. Progress Notes * Silvina RAMIREZDOB :1960 (64 yo F)Acc No.[id number]:02/26/2025 CLINICAL TRIAL RELATED VISIT Patient: Casimiro GoodenSilvina Provider: Ginna Andrew DPM :1960 A ge:64 Y S ex:Female Date:02/26/2025 Address:[address] [place], [place] [id number] Pcp:Tao Estes MD Subjective: * Chief Complaints: * P iomic V 4 * HPI: P rimary reason for visit:: Subject presents for Piomic V4. She has been wearing the CAM walker boot now with all WB activity. She is being careful to avoid any avoidable back pain. She is wearing a shoe lift on the contralateral foot. She is seeing a nephrologst soon to discuss options for her bilateral kidney stones. * Medications: T akingGabapentin HumaLOG [facility] Wound/Burn Dressing - Paste as directed Topical once daily Farxiga 10 MG Tablet Oral NovoLOG ReliOn 100 UNIT/ML Solution Injection Pantoprazole Sodium 40 MG Tablet Delayed Release TAKE 1 TABLET BY MOUTH ONCE DAILY Oral Lidocaine 5 % Patch External Rosuvastatin Calcium 20 MG Tablet TAKE 1 TABLET BY MOUTH ONCE DAILY Oral Santyl 250 UNIT/GM Ointment Apply to wound as directed Externally Once a day Medication List reviewed and reconciled with the patientTaking Gabapentin Taking HumaLOG Taking [facility] Wound/Burn Dressing - Paste as directed Topical once daily Taking Farxiga 10 MG Tablet Oral Taking NovoLOG ReliOn 100 UNIT/ML Solution Injection Taking Pantoprazole Sodium 40 MG Tablet Delayed Release TAKE 1 TABLET BY MOUTH ONCE DAILY Oral Taking Lidocaine 5 % Patch External Taking Rosuvastatin Calcium 20 MG Tablet TAKE 1 TABLET BY MOUTH ONCE DAILY Oral Taking Santyl 250 UNIT/GM Ointment Apply to wound as directed Externally Once a day Medication List reviewed and reconciled with the patient Plan: * Procedures: W OUND CARE:: Dressing: D ressing applied to wound consisting of: hydrogel, adhesive foam. She will apply santly nightly with dressing changes.. * Follow Up: 3 Days * Electronic signature of Christopher Andrew DPM on 03/15/2025 at 01:55 AM PROFESSOR OF POLITICAL SCIENCE Sign off status: Pending * Provider: Ginna Andrew DPM Date: 04/28/2024 Generated for Casandra mayer/Caroline/Yasmani on: 05/15/2024 01:55 AM PROFESSOR OF POLITICAL SCIENCE
--- OUTSIDE RECORDS SUMMARY | 2025-02-28 10:20 | XMS_ITS ---
Author Organization 1 [facility] Address [address] [place] [address] Care Team Providers Care Gas Load Dispatcher Name Role Phone Franklyn CLARK, Mettisa Primary Care Provider Unavail Fred Wylie Unavailable [phone] REASON FOR VISIT Piomic V5 Encounters Encounter Location Date Provider Diagnosis 1 OF Ginna Andrew [facility] [address] [place] [address] 02/28/2025 Fred Andrew Plan Of Treatment Next Appt Details Provider Name:Fred Andrew, 04/02/2025 01:40:00 PM, [address], [place], [address], Provider Name:Fred Andrew, 04/05/2025 08:40:00 AM, [address], [place], [address], Progress Notes * Silvina RAMIREZDOB :1960 (64 yo F)Acc No.[id number]:02/28/2025 CLINICAL TRIAL RELATED VISIT Patient: Silvina Lopes Provider: Ginna Andrew DPM :1960 A ge:64 Y S ex:Female Date:02/28/2025 Address:[facility] [place] Pcp:Tao Estes MD Subjective: * Chief Complaints: * P iomic V5 * Electronic signature of Christopher Andrew DPM on 03/29/2025 at 01:09 AM STAMP PRESS OPERATOR Sign off status: Pending * Provider: Ginna Andrew DPM Date: 04/30/2024 Generated for Printi leyla/Caroline/eTransmitting on: 05/30/2024 01:09 AM STAMP PRESS OPERATOR
--- OUTSIDE RECORDS SUMMARY | 2025-02-28 10:20 | XMS_ITS ---
Author Organization 1 [facility] Address [address] [place] [address] Care Team Providers Care Polysomnographic Technologist Name Role Phone Franklyn CLARK, Mettisa Primary Care Provider Unavail Fred Wylie Unavailable [phone] REASON FOR VISIT Piomic V5 Encounters Encounter Location Date Provider Diagnosis 1 OF [facility] [address] [place] [address] 02/28/2025 Fred Andrew Plan Of Treatment Next Appt Details Provider Name:Fred Andrew, 03/18/2025 01:00:00 PM, [address], [place], [address], Provider Name:Fred Andrew, 03/20/2025 02:30:00 PM, [address], [place], [address], Progress Notes * Silvina RAMIREZDOB :1960 (64 yo F)Acc No.[id number]:02/28/2025 CLINICAL TRIAL RELATED VISIT Patient: Silvina Lopes Provider: Ginna Andrew DPM :1960 A ge:64 Y S ex:Female Date:02/28/2025 Address:[facility] [place] Pcp:Tao Estes MD Subjective: * Chief Complaints: * P iomic V5 * Electronic signature of Chritsopher Andrew DPM on 03/15/2025 at 01:55 AM SHIFT FOREMAN Sign off status: Pending * Provider: Ginna Andrew DPM Date: 04/30/2024 Generated for Beverlyi leyla/Caroline/eTransmitting on: 05/15/2024 01:55 AM SHIFT FOREMAN
--- OUTSIDE RECORDS SUMMARY | 2025-03-04 07:00 | XMS_ITS ---
Author Organization 1 OF [facility]inna [facility]onzo [facility] Address [address] [place] [address] Care Team Providers Care Thermometer Tester Name Role Phone Franklyn CLARK, Mettisarmani Primary Care Provider Unavail able Fred Andrew Unavailable REASON FOR VISIT Piomic V6 Medications Medication SIG (Take, Route, Frequency, Duration) Notes Start Date End Date Status Lidocaine 5 % Patch External; Duration: 30 Days 06/24/2023 Active Rosuvastatin Calcium 20 MG Tablet TAKE 1 TABLET BY MOUTH ONCE DAILY Oral; Duration: 90 Days 04/25/2022 Active Santyl 250 UNIT/GM Ointment Apply to wou nd as directed Externally Once a day 02/21/2025 Active NovoLOG ReliOn 100 UNIT/ML Solution Injection; Duration: 88 Days 04/25/2014 Active Pantoprazole Sodium 40 MG Tablet Delayed Release TAKE 1 TABLET BY MOUTH ONCE DAILY Oral; Duration: 30 Days 01/23/2022 Active Gabapentin 06/23/2024 Active HumaLOG 04/25/2014 Active Medihoney Wound/Burn Dressing - Paste as directed Topical once daily; Duration: 1 month 08/30/2017 Active Farxiga 10 MG Tablet Oral; Duration: 90 Days 04/25 Active Encounters Encounter Location Date Provider Diagnosis 1 OF [facility] [address] [place] [address] 03/04/2025 Fred Andrew Plan Of Treatment Next Appt Details Provider Name:Fred Andrew, 04/02/2025 01:40:00 PM, [address], [place] [place], [address], Provider Name:Paragkatelin Beckford Kamran, 04/05/2025 08:40:00 AM, [address], [place], [address], Progress Notes * Silvina RAMIREZDOB :1960 (64 yo F)Acc No.[id number]:03/04/2025 CLINICAL TRIAL RELATED VISIT Patient: Silvina Lopes Provider: Ginna Andrew DPM :1960 A ge:64 Y S ex:Female Date:03/04/2025 Address:[address] [place], [place] [address] Pcp:Tao Estes MD Subjective: * Chief Complaints: * P iomic V6 * Medications: T akingGabapentin HumaLOG [facility] Wound/Burn Dressing - Paste as [...] with the patientTaking Gabapentin Taking HumaLOG Taking [facility] Wound/Burn Dressing - Paste as directed [...] Andrew DPM on 03/29/2025 at 01:09 AM MARBLE AND GRANITE POLISHER Sign off status: Pending * Provider: Ginna Andrew DPM Date: 05/04/2024 Generated for Casandra mayer/Caroline/Demetrioitting on: 1 05/30/2024 01:09 AM MARBLE AND GRANITE POLISHER
--- OUTSIDE RECORDS SUMMARY | 2025-03-04 07:00 | XMS_ITS ---
Author Organization 1 OF Ginna alonzo [facility] Address [address] [place] [address] Care Team Providers Care Uniform Designer Name Role Phone Franklyn CLARK, Mettisarmani Primary [...] 1 OF [facility] [address] [place] [address] 03/04/2025 Fred Andrew Plan Of Treatment Next Appt Details Provider Name:Fred Andrew, 03/18/2025 01:00:00 PM, [address], [place], [address], Provider Name:Paragkatelin Beckford Kamran, 03/20/2025 02:30:00 PM, [address], [place], [address], Progress Notes * Silvina RAMIREZDOB :1960 (64 yo F)Acc No.[id number]:03/04/2025 CLINICAL TRIAL RELATED VISIT Patient: Silvina Lopes Provider: Ginna Andrew DPM :1960 A ge:64 Y S ex:Female Date:03/04/2025 Address:[address] [place], [place] [id number] Pcp:Tao Estes MD Subjective: * Chief Complaints: [...] Andrew DPM on 03/15/2025 at 01:55 AM INSURANCE BILLING CLERK Sign off status: Pending * Provider: Ginna Andrew DPM Date: 05/04/2024 Generated for Casandra mayer/Caroline/Demetrioitting on: 05/15/2024 01:55 AM INSURANCE BILLING CLERK
--- OUTSIDE RECORDS SUMMARY | 2025-03-07 05:40 | XMS_ITS ---
Author Organization 1 OF Ginna alonzo [facility] Address [address] [place] [address] Care Team Providers Care Reel System Operator Name Role Phone Franklyn CLARK, Tao Primary Care Provider Unavail Fred Wylie Unavailable Allergies No Known Allergies REASON FOR VISIT Piomic V7 Medications Medication SIG (Take, Route, Frequency, Duration) Notes Start Date End Date Status Santyl 250 UNIT/GM Ointment Apply to wou nd as directed Externally Once a day 02/21/2025 Active Rosuvastatin Calcium 20 MG Tablet TAKE 1 TABLET BY MOUTH ONCE DAILY Oral; Duration: 90 Days 04/25/2022 Active NovoLOG ReliOn 100 UNIT/ML Solution Injection; Duration: 88 Days 04/25/2014 Active Lidocaine 5 % Patch External; Duration: 30 Days 06/24/2023 Active Pantoprazole Sodium 40 MG Tablet Delayed Release TAKE 1 TABLET BY MOUTH ONCE DAILY Oral; Duration: 30 Days 01/23/2022 Active Vitamin D Active Gabapentin 06/23/2024 Active Medihoney Wound/Burn Dressing - Paste as directed Topical once daily; Duration: 1 month 08/30/2017 Active HumaLOG 04/25/2014 Active Farxiga 10 MG Tablet Oral; Duration: 90 Days 04/25 Active Encounters Encounter Location Date Provider Diagnosis 1 OF [facility] [address] [place] [address] 03/07/2025 Fred Andrew Type 2 diabetes mellitus with peripheral neuropathy E11.42 and Ulcer of left foot with fat layer exposed L97.522 Assessments Encounter Date Diagnosis (ICD Code) Assessment Notes Treatment Notes Treatment Clinical Notes Section Notes 03/07/2025 Type 2 diabetes mellitus with peripheral neuropathy (ICD-10 - E11.42) 03/07/2025 Ulcer of left foot with fat layer exposed (ICD-10 - L97.522) Plan Of Treatment Next Appt Details Follow Up: 4 days, Reason: P iomic Visit 8 Provider Name:Fred Beckford Kamran, 03/18/2025 01:00:00 PM, [address], [address], [place], [address], Provider Name:Fred Beckford Kamran, 03/20/2025 02:30:00 PM, [address], [address], [facility], [address], Procedure Notes * Category Sub-Category Detail Notes WOUND CARE: Wound debridement: 45393 (excisi onal debridement of subQ tissue - 1st 20 sq. cm or less): Sharp debridement performed with sterile instrumentation to remove non-viable subcutanous tissue (as well as any nonviable skin as necessary) down to the level of viable bleeding tissue, No anesthesia needed due to neuropathy, Hemostasis with compression as needed. Dressing: Following debridemen t irrigation of wound(s) with:, sterile saline, Dressing applied to wound consisting of:, hydrogel, adhesive foam History and Physical Notes * HPI (History of Present Illness) Category Sub-Category Detail Notes Category Not es Primary reason for visit: Subject presents for visit 7 of the [facility]_03 Piomic clinical trial. She hasn't changed her wound care regimen, changing the twice daily; Santyl, hydrogel, adhesive foam. She states the new surgical shoe is much less aggravating on her back pain. It was previously modified by adding plastazote to improve comfort and offloading. She did start taking vitamin D since our last visit. Examination Category Sub-Category Detail Notes Category Not es Wound Evaluation: Wound A Location: LT p lantar midfootDate of initial evaluation: 01/01/2025Measurement Hx (following debridement):,01/01/2025: 0.9 cm x 1.0 cm x 0.2 cm depth,01/10/2025: 1.0 cm x 1.0 cm x 0.3 cm depth01/21/2025: 1.1 cm x 1.1 cm x 0.3 cm depth01/31/2025: 1.3 cm x 1.3 cm x 0.3 cm depth02/14/2025: 1.5 cm x 1.42 cm x 0.3 cm depth02/19/2025 1.56 cm x 1.50 cm x 0.3 cm depth02/21/2025 1.81 cm x 1.79 cm x 0.3 cm depth02/26/2025 1.73 cm x 1.41 cm x 0.3 cm depth02/28/2025 1.93 cm x 1.70 cm x 0.3 cm depth03/04/2025 1.76 cm x 1.53 cm 0.3 cm depth03/07/2025 Appearance today: , (wound depth: subcutaneous / fatty tissue), no undermining, No purulence, no probing to bone, no cellulitis, serosanguinous drainage, moderate drainage Progress Notes * Silvina RAMIREZDOB :1960 (64 yo F)Acc No.[id number]:03/07/2025 CLINICAL TRIAL RELATED VISIT Patient: Casimiro mollyharmeetSilvina Phillips Provider: Ginna Andrew DPM :1960 A ge:64 Y S ex:Female Date:03/07/2025 Address:[address] [place], [place] [id number] Pcp:Tao Estes MD Subjective: * Chief Complaints: * P iomic V7 * HPI: P rimary reason for visit:: Subject presents for visit 7 of the [facility]_03 Piomic clinical trial. She hasn't changed her wound care regimen, changing the twice daily; Santyl, hydrogel, adhesive foam. She states the new surgical shoe is much less aggravating on her back pain. It was previously modified by adding plastazote to improve comfort and offloading. She did start taking vitamin D since our last visit. * Medical History: Diabetes, neuropathy of feet GERD/Reflux Back pain Hyperlipidemia Wounds (nonhealing leg/foot) Medical History Verified * Medications: T akingVitamin D Gabapentin HumaLOG [facility] Wound/Burn Dressing - Paste as directed Topical [...] List reviewed and reconciled with the patientTaking Vitamin D Taking Gabapentin Taking HumaLOG Taking Mediney Wound/Burn Dressing [...] reconciled with the patient * Allergies: N .K.Jonah.BrendaAllergies Verified. Objective: * Examination: W ound Evaluation: : Wound A L ocation: LT plantar midfoot Date of initial evaluation: 01/01/2025 Measurement Hx (following debridement):, 01/01/2025: 0.9 cm x 1.0 cm x 0.2 cm depth, 01/10/2025: 1.0 cm x 1.0 cm x 0.3 cm depth 01/21/2025: 1.1 cm x 1.1 cm x 0.3 cm depth 01/31/2025: 1.3 cm x 1.3 cm x 0.3 cm depth 02/14/2025: 1.5 cm x 1.42 cm x 0.3 cm depth 02/19/2025 1.56 cm x 1.50 cm x 0.3 cm depth 02/21/2025 1.81 cm x 1.79 cm x 0.3 cm depth 02/26/2025 1.73 cm x 1.41 cm x 0.3 cm depth 02/28/2025 1.93 cm x 1.70 cm x 0.3 cm depth 03/04/2025 1.76 cm x 1.53 cm 0.3 cm depth 03/07/2025 Appearance today: , (wound depth: subcutaneous / fatty tissue), no undermining, No purulence, no probing to bone, no cellulitis, serosanguinous drainage, moderate drainage. Assessment: * Assessment: 1. T ype 2 diabetes mellitus with peripheral neuropathy - E11.42 (Primary) 2 .?Ulcer of left foot with fat layer exposed - L97.522 Plan: * Procedures: W OUND CARE:: Wound debridement: 1 1042 (excisional debridement of subQ tissue - 1st 20 sq. cm or less): Sharp debridement performed with sterile instrumentation to remove non-viable subcutanous tissue (as well as any nonviable skin as necessary) down to the level of viable bleeding tissue, No anesthesia needed due to neuropathy, Hemostasis with compression as needed..? Dressing: F ollowing debridement irrigation of wound(s) with:, sterile saline, Dressing applied to wound consisting of:, hydrogel, adhesive foam. ? * Procedure Codes: 1 1042 DEBRIDE SKIN/TISSUE * Follow Up: 4 days (Reason: Piomic Visit 8) Billing Information: * Procedure Codes: 15050 DEBRIDE SKIN/TISSUE. * Electronic signature of Christopher Andrew DPM on 03/15/2025 at 01:55 AM NEWSPAPER DELIVERY DRIVER Sign off status: Pending * Provider: Ginna [facility] Date: 05/07/2024 Generated for Casandra mayer/Caroline/Yasmani on: 05/15/2024 01:55 AM NEWSPAPER DELIVERY DRIVER
--- OUTSIDE RECORDS SUMMARY | 2025-03-07 05:40 | XMS_ITS ---
Author Organization 1 OF Ginna alonzo [facility] Address [address] [place] [address] Care Team Providers Care Clinical Research Management Associate Name Role Phone Franklyn CLARK, Tao Primary [...] Location Date Provider Diagnosis 1 OF [facility] [address] [place] [address] 03/07/2025 Fred Andrew Type 2 diabetes mellitus [...] Reason: P iomic Visit 8 Provider Name:Fred Analy Andrew, 04/02/2025 01:40:00 PM, [address], [address], [place], [address], Provider Name:Fred Analy Andrew, 04/05/2025 08:40:00 AM, [address], [address], [place], [address], Procedure Notes * Category Sub-Category Detail Notes WOUND CARE: Wound debridement: 56312 (excisi onal debridement of subQ tissue - [...] Subject presents for visit 7 of the [facility]_03 Piomic clinical trial. She hasn't changed her [...] * Silvina RAMIREZDOB :1960 (64 yo F)Acc No.[id number]:03/07/2025 CLINICAL TRIAL RELATED VISIT Patient: Casimiro mollyharmeetSilvina Phillips Provider: Ginna Andrew DPM :1960 A ge:64 Y S ex:Female Date:03/07/2025 Address:[address] [place], [place] [id number] Pcp:Tao Estes MD Subjective: * Chief Complaints: [...] * Medications: T akingVitamin D Gabapentin HumaLOG [facility] Wound/Burn Dressing - Paste as [...] Visit 8) Billing Information: * Procedure Codes: 28277 DEBRIDE SKIN/TISSUE. * Electronic signature of Christopher Andrew DPM on 03/29/2025 at 01:10 AM MAINTENANCE MECHANIC 2ND SHIFT Sign off status: Pending * Provider: Ginna Andrew [facility] Date: 05/07/2024 Generated for Casandra mayer/Caroline/Yasmani on: 05/30/2024 01:10 AM MAINTENANCE MECHANIC 2ND SHIFT
--- NOTE | 2025-03-08 06:59 | PM.HPGS ---
History of Present Illness History of Present Illness Consent: Risks, benefits, and alternatives have been discussed and questions answered. Patient agrees to proceed with procedure. Chief complaint: left kidney stones Narrative: Silvina Ospina is a 64 year old female without history of urolithiasis who had a CT scan of her abdomen and pelvis because of low back pain. ?It is demonstrated bilateral nonobstructing 1.5 cm calculi. ?I will get a KUB to see if they are calcified and call her with findings and recommendations. She denies fevers chills or gross hematuria Addendum Note?(Terrell Yao MD; 02/28/2025 3:27 PM) KUB: ?14 mm calcified left renal stone I recommend cysto with left stent placement and left ESWL Review of Systems Review of Systems: All systems reviewed & are unremarkable except as noted in HPI and below PMFSH Past Medical History Medical History Charcot foot due to diabetes mellitus Osteomyelitis (~06/2001) Left great toe which was subsequently amputated. Insulin dependent type 2 diabetes mellitus Complicated by retinopathy and neuropathy. Gastroesophageal reflux disease Surgical History Surgical History History of oophorectomy History of section History of tubal ligation History of amputation of left great toe (~06/2001) History of cholecystectomy (~11/1999) Family History Family History Mother Diabetes mellitus Sibling Diabetes mellitus Non-Hodgkin lymphoma Grandparent Diabetes mellitus Other Cancer Hypertension Respiratory disorder Social History Social History Social History: Surrogate decision maker: Sarah Garcia, daughter. Sister Aicha also designated as an emergency contact. Code status: Full code. Smoking status: Former smoker Alcohol intake: never Substance use: never Do You Feel Safe in your Home?: Yes Lack of Transportation: No Lack of Food: Never True Current Housing: I Have Housing Concerned About Future Housing: No Difficulty Paying Gas/Electric Bills: No Difficulty Paying for Meds: No Currently Unemployed: No Education: Bachelor's Degree Difficulty w/ Childcare or Family Care: No Living arrangements: with family Additional living arrangements comments: Patient lives with her significant other in [place]. Additional occupation/education comments: Works in [employer]. Gender identity (if verbalized by the patient): Female Sexual Orientation (if Verbalized by the Patient): Straight or Heterosexual Spiritual care concerns: Yes ([facility]) Meds Home Medications and Allergies Home Medications ?Medication ?Instructions ?Recorded ?Confirmed ?Type pen needle, diabetic 31 gauge x #100 ea 10/25/19 02/12/25 Rx 5/16 glucagon 3 mg/actuation nasal spray 3 mg intranasal ONCE #2 ea 02/22/23 02/12/25 Rx sxhmqy-qxaopczy-iozaoda (pork) 9 cap PO 02/22/23 02/12/25 History 3,000-9,500-15,000 unit capsule,del rel (Creon) albuterol sulfate 90 mcg/actuation 2 puff inhalation QID PRN 04/19/24 02/12/25 Rx aerosol inhaler shortness of breath or wheezing #6.7 grams inhalational spacing device #1 ea 04/19/24 02/12/25 Rx (Aerochamber MV spacer) Farxiga 10 mg tablet 10 mg PO DAILY #90 tabs 07/04/24 02/12/25 Rx (dapagliflozin propanediol) gabapentin 100 mg capsule 100 mg PO TID 07/04/24 02/12/25 History insulin syringe-needle U-100 1 mL #100 ea 07/04/24 02/12/25 Rx 28 gauge x 5/16 (CareTouch Insulin Syringe) insulin aspart U-100 100 unit/mL 80 unit (0.8 mL) continuous 07/30/24 02/12/25 Rx subcutaneous solution (Novolog subcutaneous infusion DAILY #80 mL U-100 Insulin aspart) colestipol 1 gram tablet 1 g PO ONCE 10/31/24 02/12/25 History insulin glargine 100 unit/mL (3 25 unit (0.25 mL) subcut DAILY PRN 01/02/25 02/12/25 Rx mL) subcutaneous pen (Lantus insulin pump malfunction #15 mL Solostar U-100 Insulin) semaglutide 0.25 mg or 0.5 mg (2 0.5 mg (0.736 mL) subcut WEEKLY #9 02/12/25 02/12/25 Rx mg/3 mL) subcutaneous pen injector mL (Ozempic) rosuvastatin 20 mg tablet 20 mg PO DAILY #90 tabs 02/18/25 Rx cholecalciferol (vitamin D3) 1,250 1,250 mcg PO WEEKLY #14 caps 02/26/25 Rx mcg (50,000 unit) capsule Allergies Allergy/AdvReac Type Severity Reaction Status Date / Time clavulanic acid AdvReac Severe SEVERE Verified 02/12/25 09:28 VOMITING metformin AdvReac Severe SEVERE Verified 02/12/25 09:28 VOMITING Exam Const: General: no acute distress Resp: Effort & Inspection: normal respiratory effort GI: Inspection: non-distended GI Palp: No abdominal tenderness and No Guarding due to palpation present (GI) Auscultation: normal bowel sounds Assessment and Plan Assessment and plan (1) Bilateral kidney stones: Code(s): N20.0 - Calculus of kidney Status: Acute Assessment and Plan: Cystoscopy, left ureteral stent placement, left ESWL
--- OUTSIDE RECORDS SUMMARY | 2025-03-11 04:30 | XMS_ITS ---
Author Organization 1 OF Ginna alonzo [facility] Address [address] [place] [address] Care Team Providers Care Director Of Application Development Name Role Phone Franklyn CLARK, Tao Primary Care Provider Fred Morales [facility] [phone] Allergies No Known Allergies REASON FOR VISIT Piomic Visit 8 Medications Medication SIG (Take, Route, Frequency, Duration) Notes Start Date End Date Status Farxiga 10 MG Tablet Oral; Duration: 90 Days 04/25 Active NovoLOG ReliOn 100 UNIT/ML Solution Injection; Duration: 88 Days 04/25/2014 Active Lidocaine 5 % Patch External; Duration: 30 Days 06/24/2023 Active Pantoprazole Sodium 40 MG Tablet Delayed Release TAKE 1 TABLET BY MOUTH ONCE DAILY Oral; Duration: 30 Days 01/23/2022 Active Rosuvastatin Calcium 20 MG Tablet TAKE 1 TABLET BY MOUTH ONCE DAILY Oral; Duration: 90 Days 04/25/2022 Active Medihoney Wound/Burn Dressing - Paste as directed Topical once daily; Duration: 1 month 08/30/2017 Active Santyl 250 UNIT/GM Ointment Apply to wou nd as directed Externally Once a day 02/21/2025 Active Vitamin D 03/07/2025 Active HumaLOG 04/25/2014 Active Gabapentin 06/23/2024 Active Encounters Encounter Location Date Provider Diagnosis 1 OF [facility] [address] [place] [address] 03/11/2025 Fred Andrew Type 2 diabetes mellitus with peripheral neuropathy E11.42 and Ulcer of left foot with fat layer exposed L97.522 Assessments Encounter Date Diagnosis (ICD Code) Assessment Notes Treatment Notes Treatment Clinical Notes Section Notes 03/11/2025 Type 2 diabetes mellitus with peripheral neuropathy (ICD-10 - E11.42) 03/11/2025 Ulcer of left foot with fat layer exposed (ICD-10 - L97.522) Study treatment applied for full 16 minutes. No issues reported. Wound size unchanged. WIll reassess offloading with Dr. Andrew at next visit. Plan Of Treatment Treatment Notes Assessment Notes Ulcer of left foot with fat layer expose d Study treatment applied for full 16 minutes. No issues reported. Wound size unchanged. WIll reassess offloading with Dr. Andrew at next visit. Next Appt Details Follow Up: 3 Days, Reason: Provider Name:Fred Andrew, 03/18/2025 01:00:00 PM, [address], [place], [address], Provider Name:Fred Andrew, 03/20/2025 02:30:00 PM, [address], [place], [address], History and Physical Notes * HPI (History of Present Illness) Category Sub-Category Detail Notes Category Not es Primary reason for visit: Subject presents for COM_03 visit 8. She denies any changes to medical conditions, medications, wound care. Nothing significant to report. Progress Notes * Silvina RAMIREZDOB :1960 (64 yo F)Acc No.[id number]:03/11/2025 CLINICAL TRIAL RELATED VISIT Patient: Lucretia Lopesberly Provider: Ginan Andrew DPM :1960 A ge:64 Y S ex:Female Date:03/11/2025 Address:[address] [place] [address] [facility] Pcp:Tao Estes MD Subjective: * Chief Complaints: * P iomic Visit 8 * HPI: P rimary reason for visit:: Subject presents for COM_03 visit 8. She denies any changes to medical conditions, medications, wound care. Nothing significant to report. * Medical History: Diabetes, neuropathy of feet GERD/Reflux Back pain Hyperlipidemia Wounds (nonhealing leg/foot) Medical History Verified * Medications: T akingVitamin D Gabapentin HumaLOG Medihoney Wound/Burn Dressing - Paste as [...] Vitamin D Taking Gabapentin Taking HumaLOG Taking Medihoney Wound/Burn Dressing [...] exposed - L97.522 Plan: * Treatment: * Follow Up: 3 Days * Electronic signature of Christopher Andrew DPM on 03/15/2025 at 01:55 AM NEON SIGN ERECTOR Sign off status: Pending * Provider: Ginna Andrew DPM Date: 05/11/2024 Generated for Casandra mayer/Caroline/Yasmani on: 05/15/2024 01:55 AM NEON SIGN ERECTOR
--- OUTSIDE RECORDS SUMMARY | 2025-03-11 04:30 | XMS_ITS ---
Author Organization 1 [facility] Address [address] [place] [address] Care Team Providers Care Coconut Boiler Name Role Phone Franklyn CLARK, Tao Primary Care Provider Fred Morales [facility] [phone] Allergies No Known Allergies REASON FOR VISIT [...] 1 OF [facility] [address] [place] [address] 03/11/2025 Fred Andrew Type 2 diabetes mellitus [...] Up: 3 Days, Reason: Provider Name:Fred Andrew, 04/02/2025 01:40:00 PM, [address], [place], [address], Provider Name:Fred Andrew, 04/05/2025 08:40:00 AM, [address], [address], [place], [address], History and Physical Notes * HPI (History of Present Illness) Category Sub-Category Detail Notes Category Not es Primary reason for visit: Subject presents for COM_03 visit 8. She denies any changes to medical conditions, medications, wound care. Nothing significant to report. Progress Notes * Silvina RAMIREZDOB :1960 (64 yo F)Acc No.[id number]:03/11/2025 CLINICAL TRIAL RELATED VISIT Patient: Lucretia Lopesberly Provider: Ginna Andrew DPM :1960 A ge:64 Y S ex:Female Date:03/11/2025 [facility] Pcp:Tao Estes MD Subjective: * Chief Complaints: [...] Andrew DPM on 03/29/2025 at 01:09 AM PARALEGAL SUPERVISOR Sign off status: Pending * Provider: Ginna Andrew DPM Date: 05/11/2024 Generated for Casandra mayer/Caroline/Yasmani on: 05/30/2024 01:09 AM PARALEGAL SUPERVISOR
--- OUTSIDE RECORDS SUMMARY | 2025-03-14 09:40 | XMS_ITS ---
Author Organization 1 OF [facility] Address [address] [place] [address] Care Team Providers Care Deputy United States Marshal Name Role Phone Franklyn CLARK, Tao Primary Care Provider Unavail Fred Wylie Unavailable Allergies No Known Allergies REASON FOR VISIT Piomic Visit 9 Medications Medication SIG (Take, Route, Frequency, Duration) [...] DAILY Oral; Duration: 30 Days 01/23/2022 Active Moxifloxacin HCl 400 MG Tablet 1 tablet Orally daily; Duration: 7 days 03/14/2025 Active Gabapentin 06/23/2024 Active NovoLOG ReliOn 100 UNIT/ML Solution Injection; Duration: 88 Days 04/25/2014 Active Farxiga 10 MG Tablet Oral; Duration: 90 Days 04/25 Active Medihoney Wound/Burn Dressing - Paste as directed Topical once daily; Duration: 1 month 08/30/2017 Active HumaLOG 04/25/2014 Active Vitamin D 03/07/2025 Active Encounters Encounter Location Date Provider Diagnosis 1 OF [facility] [address] [address] 03/14/2025 Fred Andrew Type 2 diabetes mellitus with peripheral neuropathy E11.42 and Ulcer of left foot with fat layer exposed L97.522 Assessments Encounter Date Diagnosis (ICD Code) Assessment Notes Treatment Notes Treatment Clinical Notes Section Notes 03/14/2025 Type 2 diabetes mellitus with peripheral neuropathy (ICD-10 - E11.42) 03/14/2025 Ulcer of left foot with fat layer exposed (ICD-10 - L97.522) Plan Of Treatment Medication Medication Name Sig Start Date Stop Date Notes Moxifloxacin HCl 400 MG Tablet 1 tablet Orally daily; Duration: 7 days 03/14/2025 Next Appt Details Provider Name:Fred Beckford Kamran, 03/18/2025 01:00:00 PM, [address], [address], [place], [address], Provider Name:Fred Andrew, 03/20/2025 02:30:00 PM, [address], [address], [place], [address], History and Physical Notes * HPI (History of Present Illness) Category Sub-Category Detail Notes Category Not es Primary reason for visit: Subject presents for visit 9 of the [facility]_03 Piomic clinical trial. She denies any medication changes or new medical events. She has been compliant with offloading. Progress Notes * Silvina RAMIREZDOB :1960 (64 yo F)Acc No.[id number]:03/14/2025 CLINICAL TRIAL RELATED VISIT Patient: Casimiro mollyharmeetSilvina Phillips Provider: Ginna Andrew DPM :1960 A ge:64 Y S ex:Female Date:03/14/2025 Address[facility] Pcp:Tao Estes MD Subjective: * Chief Complaints: * P iomic Visit 9 * HPI: P rimary reason for visit:: Subject presents for visit 9 of the [facility]_03 Piomic clinical trial. She denies any medication changes or new medical events. She has been compliant with offloading. * Medical History: Diabetes, neuropathy of feet [...] exposed - L97.522 Plan: * Treatment: * Electronic signature of Christopher Andrew DPM on 03/15/2025 at 01:55 AM STORE SHOPPER Sign off status: Pending * Provider: Ginna Andrew DPM Date: 05/14/2024 Generated for Casandra mayer/Caroline/Yasmani on: 05/15/2024 01:55 AM STORE SHOPPER
--- OUTSIDE RECORDS SUMMARY | 2025-03-14 09:40 | XMS_ITS ---
Author Organization 1 [facility] Address [address] [employer] [address] [place] [address] Care Team Providers Care Property Management Bookkeeper Name Role Phone Franklyn CLARK, Tao Primary [...] 1 OF Ginna Andrew [employer] [address] [employer] [address] 03/14/2025 Fred Andrew Type 2 diabetes mellitus [...] Next Appt Details Provider Name:Fred Beckford Kamran, 04/02/2025 01:40:00 PM, [address], [address], [place], [address], Provider Name:Fred Beckford Kamran, 04/05/2025 08:40:00 AM, [address], [place], [address], History and Physical Notes * HPI (History of Present Illness) Category Sub-Category Detail Notes Category Not es Primary reason for visit: Subject presents for visit 9 of the [facility]_03 Piomic clinical trial. She denies any medication changes or new medical events. She has been compliant with offloading. Progress Notes * Silvina RAMIREZDOB :1960 (64 yo F)Acc No.[id number]:03/14/2025 CLINICAL TRIAL RELATED VISIT Patient: Casimiro mollyharmeetSilvina Phillips Provider: Ginna Andrew DPM :1960 A ge:64 Y S ex:Female Date:03/14/2025 Address[facility] Pcp:Tao Estes MD Subjective: * Chief Complaints: * P iomic Visit 9 * HPI: P rimary reason for visit:: Subject presents for visit 9 of the [facility]_03 Piomic clinical trial. She denies any medication [...] Andrew DPM on 03/29/2025 at 01:09 AM RESERVATION AGENT Sign off status: Pending * Provider: Ginna Andrew DPM Date: 05/14/2024 Generated for Casandra mayer/Caroline/Yasmani on: 05/30/2024 01:09 AM RESERVATION AGENT
--- OUTSIDE RECORDS SUMMARY | 2025-03-15 01:56 | XMS_ITS | Data Portability ---
Author Organization [place] - [employer], Main Office Address [address] [place] [address] Assessment No assessment recorded. Plan of Treatment Reminders Order Date Submit Date Provider Last Modified By Organization Details Last Modified Time Details Appointments None recorded. Lab None recorded. Referral None recorded. Procedures None recorded. Surgeries None recorded. Imaging None recorded. Medication Orders Creon 36,000 unit-114,00 0 unit-180,00 0 unit capsule,del ayed release 2023 024 [facility], [address] [place] [address], [address], 4 16:17:23 pantoprazol e 40 mg tablet,gurdeep yed release 2023 024 [facility], [address] [place] [address], [address], 4 16:17:23 Creon 36,000 unit-114,00 0 unit-180,00 0 unit capsule,del ayed release [address] [facility] [address] [facility], [address] [place] [address], [address], 3 09:43:40 pantoprazol e 40 mg tablet,gurdeep yed release 2022 023 [facility] [address], [address] [place] [address], [address], 3 14:54:14 Patient TargetsNo targets recorded. Patient Instructions Encounter Date Encounter Id Patient Instructions Last Modified By Organization Details Last Modified Time 12/08/2022 [id number] PT WITH EPI ON CREON 36K , 2 WITH EACH MEAL. DOING WELL ON THIS MED . CONT SAME F/U IN 6 MTHS . PT WITH GERD . CONT PANTOPRAZOLE 40 MG DAILY . F/U IN 6 MTHS . [email or web address] Not available 12/08/2022 14:54:43 06/08/2023 [id number] PT WITH GERD DOING WELL WITH PANTOPRAZOLE 40 MG DAILY . PT WITH DIARRHEA /EPI. CONTINUE CREON . WITH MEALS . F/U IN 6 MTHS . [email or web address] Not available 06/08/2023 16:17:58 12/07/2023 [id number] CAUTION WITH REFINED SUGARS . FREQUENT SMALL MEALS . [email or web address] Not available 12/07/2023 16:30:04 PT WITH LUQ/ EPIGASTRIC PAIN . S/P LAP BAND SURGERY. RECOMMEND A CT ABD / PELVIS. R/O PANCREATIC LESION . BAND MIGRATION . F/U IN 4 WEEKS . [email or web address] Not available 12/07/2023 16:29:02 Reason for Referral None Reported. Results Created Date Observation Date Name Description Value Unit Range Abnormal Flag Note LastModifiedBy Organization Detail LastModifiedTime Result Notes None recorded. Problems Name Problem SNOMED Code Status Onset Date Resolution Date Notes Provider Name and Address Organization Details Recorded Time Chronic diarrhea 989400496 Active 2019 Not Available [facility] 3 22:05:24 Neuropathy 401800339 Active 2019 Not Available [facility] 3 22:05:24 Osteomyeli tis 32600430 Active 2019 Not Available [facility] 3 22:05:24 Diabetes mellitus 20099385 Active 2019 Not Available [facility] 3 22:05:24 Uncontroll ed type 2 diabetes mellitus 360833116 Active 2021 Not Available [facility] 3 22:05:24 Screening for malignant neoplasm of colon done 0085396515807 Active 2021 Not Available [facility] 3 22:05:24 Postcholec ystectomy syndrome 07830495 Active 2021 Not Available [facility] 3 22:05:25 Celiac disease 758927261 Active 2021 Not Available [facility] 3 22:05:24 Type 2 diabetes mellitus 16375762 Active 2021 Not Available [facility] 3 22:05:24 Diarrhea 53627469 Active 2021 Not Available [facility] 3 22:05:24 Vitamin D-dependen t rickets 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 Active 2021 Not Available [facility] 3 22:05:24 Exocrine pancreatic insufficie ncy 20162820 Active 2021 Not Available [facility] 3 22:05:24 Microalbum inuria 901306809 Active 2022 Celia Castillo RMAfshan null, [facility] 3 11:29:17 Dyslipidem ia 455241982 Active 2022 REBEKAH Tran null, [facility] 3 11:29:42 Gastroesop hageal reflux disease without esophagiti s 626777993 Active 2022 Leigh Ann El MD [address] [place] [address], [phone] , [facility] 3 14:53:28 Problem Notes None recorded. Procedures Surgical History Date Name Laterality Status Provider Name and Address Organization Details Recorded Time Cholecystectomy completed Not Available [facility] 06/23/2022 22:04:49 Tubal Ligation completed [facility] 06/23/2022 22:04:49 completed Not Available [facility] 0 06/23/2022 22:04:49 Imaging Results None recorded. Procedure Notes None recorded. Medical Equipment None Reported. Allergies No known drug allergies Medications Name Sig Start Date Stop Date Status Note LastModified by Organization Details LastModified Time Prescriptio n - Renewal active Not Available Not Available Not Available amoxicillin 500 mg capsule TAKE 1 CAPSULE BY MOUTH THREE TIMES DAILY UNTIL GONE 05/20 completed Not Available Not Available Not Available azithromyci n 250 mg tablet TAKE 2 TABLETS BY MOUTH ON DAY 1 AND THEN TAKE 1 TABLET BY MOUTH ONCE A DAY ON DAY 2 THROUGH DAY 5 05/20 completed Not Available Not Available Not Available cephalexin 250 mg capsule 05/20 completed Not Available Not Available Not Available hydrocodone 5 mg-acetamin ophen 325 mg tablet 11/03 completed Not Available Not Available Not Available ondansetron HCl 4 mg tablet 05/20 completed Not Available Not Available Not Available acetaminoph en 300 mg-codeine 30 mg tablet TAKE 1 TABLET BY MOUTH 4 TIMES DAILY NEEDED FOR PAIN 05/20 completed Not Available Not Available Not Available acyclovir 400 mg tablet 02/10 completed Not Available Not Available Not Available peg-electro lyte solution 420 gram oral solution TAKE DIRECTED 05/14 completed Not Available Not Available Not Available amoxicillin 875 mg tablet TAKE 1 TABLET BY MOUTH EVERY 12 HOURS 06/17 completed Not Available Not Available Not Available tamsulosin 0.4 mg capsule 05/20 completed Not Available Not Available Not Available pantoprazol e 40 mg tablet,gurdeep yed release Take 1 tablet by mouth once daily active Not Available Not Available No t Available neomycin-po lymyxin-dex ameth 3.5 mg/mL-10,00 0 unit/mL-0.1 % eye drops 02/10 completed Not Available Not Available Not Available tobramycin 0.3 % eye drops 02/10 completed Not Available Not Available Not Available promethazin e 25 mg tablet TAKE 1 2 (ONE HALF) TABLET BY MOUTH EVERY 6 HOURS NEEDED FOR NAUSEA 05/20 completed Not Available Not Available Not Available ergocalcife rol (vitamin D2) 1,250 mcg (50,000 unit) capsule TAKE 1 CAPSULE BY MOUTH ONCE A WEEK active Not Available Not Available No t Available Novolog U-100 Insulin aspart 100 unit/mL subcutaneou s solution 80 UNITS VIA SUBCUTANE OUS CONTINUOU S INFUSION DAILY active Not Available Not Available No t Available cefdinir 300 mg capsule 02/10 completed Not Available Not Available Not Available colestipol 1 gram tablet TAKE 1 TABLET BY MOUTH TWICE DAILY SWALLOW WHOLE WITH ANY LIQUID. DO NOT CRUSH, CHEW AND/OR DIVIDE 11/03 completed Not Available Not Available Not Available dicyclomine 10 mg capsule TAKE 1 CAPSULE BY MOUTH 4 TIMES DAILY NEEDED 11/03 completed Not Available Not Available Not Available amoxicillin 875 mg-potassiu m clavulanate 125 mg tablet Take 1 tablet every 12 hours by oral route for 7 days. active Not Available Not Available No t Available tobramycin 0.3 %-dexametha sone 0.1 % eye drops,suspe nsion 02/10 completed Not Available Not Available Not Available insulin aspart (U-100) 100 unit/mL (3 mL) subcutaneou s pen Inject per sliding scale up to 15 units under the skin three times daily at meals. Maximum daily dose of 45 units per day. 2022 active Not Available Not Available Not Avai lable cholestyram ine (with sugar) 4 gram oral powder 11/03 completed Not Available Not Available Not Available rosuvastati n 20 mg tablet TAKE 1 TABLET BY MOUTH ONCE DAILY active Not Available Not Available No t Available GaviLyte-G 236 gram-22.74 gram-6.74 gram-5.86 gram oral solution USE DIRECTED 06/12 completed Not Available Not Available Not Available BD Ultra-Fine Nell Pen Needle 32 gauge x 5/32 USE FIVE TIMES DAILY DIRECTED WITH INSULIN active Not Available Not Available No t Available Creon 36,000 unit-114,00 0 unit-180,00 0 unit capsule,del ayed release TAKE 2 CAPSULES BY MOUTH THREE TIMES DAILY WITH MEALS active Not Available Not Available No t Available Farxiga 10 mg tablet Take 1 tablet by mouth daily. active Not Available Not Available No t Available Levemir FlexTouch U-100 Insulin 100 unit/mL (3 mL) subcutaneou s pen Inject 20 units twice a day by subcutane ous route for 90 days. 06/17 completed Not Available Not Available Not Available Tresiba FlexTouch U-200 insulin 200 unit/mL (3 mL) subcutaneou s pen active Not Available Not Available Not Available Tresiba FlexTouch U-100 insulin 100 unit/mL (3 mL) subcutaneou s pen inject up to 75 units daily under the skin active Not Available Not Available No t Available Baqsimi 3 mg/actuatio n nasal spray 3MG INTRANASA LLY ONCE; A SINGLE DOSE; MAY REPEAT ONCE IN 15 MINUTES IF NO RESPONSE active Not Available Not Available No t Available FreeStyle Naomi 2 Sensor kit CHANGE EVERY 14 DAYS active Not Available Not Available No t Available FreeStyle Naomi 2 Magnolia USE DIRECTED active Not Available Not Available No t Available Kerendia 10 mg tablet active Not Available Not Available No t Available Vitals Date Recorded Body height Body mass index (BMI) Body weight Provider Name and Address Organization Details Last Updated DateTime 06/08/2023 160.02 cm 32.4 kg/m2 62433.4 g Dada Banks Afshan MD [employer] [facility] [employer] [facility] 06/08/2023 14:49:57 Date Recorded Body mass index (BMI) Body height Oxygen saturation Heart rate Body temperature Body weight Systolic And Diastolic Provider Name and Address Organization Details Last Updated DateTime 3 32.4 kg/m2 160.02 cm 98 % 95 /min 97.6 [degF] 69196.4 g 118/74 mm[Hg] Not Available [facility] 3 22:05:18 Date Recorded Body height Body mass index (BMI) Body weight Heart rate Oxygen saturation Systolic And Diastolic Provider Name and Address Organization Details Last Updated DateTime 4 160.02 cm 31.7 kg/m2 28637.0 3 g 92 /min 99 % 120/70 mm[Hg] Dada Banks [facility] [employer] [facility] [employer] [facility] 4 15:50:26 Date Recorded Body temperature Respiratory rate Provid er Name and Address Organization Details Last Updated DateTime 12/08/2022 97.7 [degF] 14 /min Gracia Ferguson MD [employer] [facility] [employer] [facility] 12/08/2022 14:11:46 Date Recorded Body height Body mass index (BMI) Body weight Heart rate Oxygen saturation Systolic And Diastolic Provider Name and Address Organization Details Last Updated DateTime 3 160.02 cm 32.4 kg/m2 10743.4 g 94 /min 98 % 118/72 mm[Hg] Dada Banks [facility] [employer] [facility] [employer] [facility] 3 14:09:45 Date Recorded Body mass index (BMI) Body height Oxygen saturation Heart rate Body temperature Body weight Systolic And Diastolic Provider Name and Address Organization Details Last Updated DateTime 2 32.6 kg/m2 160.02 cm 99 % 101 /min 97.5 [degF] 63076 g 116/72 mm[Hg] Not Available [facility] 22:05:18 Social History Question Answer Notes LastModified by Organizat ion Details LastModified Time Tobacco Smoking Status Never [facility] [employer] [facility] 06/08/2023 14:49:28 Do You Have An Advance Directive? No [id number] Information not available 06/23/2022 What Is Your Level Of Caffeine Consumption? Occasional [id number] Information not available 06/23/2022 In The 14 Days Before Symptom Onset, Have You Had Close Contact With A Laboratory-confirm ed COVID-19 While That Case Was Ill? No Information n ot available 06/08/2023 In The 14 Days Before Symptom Onset, Have You Had Close Contact With A Person Who Is Under Investigation For COVID-19 While That Person Was Ill? No Information not available 06/08/2023 What Type Of Diet Are You Following? DIABETIC [id number] Information not available 06/23/2022 Are You Following A Low Salt Diet? No Information not available 06/08/2023 Do You Have A Medical Power Of Piano Tuner? No Information not available 06/08/2023 What Was The Date Of Your Most Recent Tobacco Screening? 02/03/2022 Information not available 06/08/2023 What Is Your Relationship Status? [id number] Information not available 06/23/2022 Do You Use Your Seat Belt Or Car Seat Routinely? Yes Information not available 06/08/2023 Do You Have Smoke And Carbon Monoxide Detectors In Your Home? Yes Information not available 06/08/2023 Are You Passively Exposed To Smoke? Yes Information no t available 06/08/2023 Do You Use Sunscreen Routinely? Yes Information not available 06/08/2023 Have You Recently Traveled Abroad? No Information not available 06/08/2023 Do You Have Any Dietary Restrictions? Yes Information not available 06/08/2023 Sex: Female Functional Status Question Answer Note LastModified by Organizat ion Details LastModified Time Do you use any illicit or recreational drugs? No Information not available 06/08/2023 What is your level of alcohol consumption? None [id number] Information not available 06/23/2022 What is your exercise level? Occasional [id number] Information not available 06/23/2022 Mental Status Question Answer Note LastModified by Organization D etails LastModified Time Do you feel stressed (tense, restless, nervous, or anxious, or unable to sleep at night)? [id number] Information not available 06/08/2023 Family History Relationship Description Onset Age of this Age Resolved Age Notes LastModified by Organization Details LastModified Time Maternal Grandmother Diabetes mellitus [id number] Not available 06/23/2022 22:04:50 Mother Diabetes mellitus [id number] Not available 06/23/2022 22:04:50 Sister Non-Hodgkin' s lymphoma (clinical) 42 [email or web address] Not available 06/08 14:49:28 Brother Malignant neoplasm of liver 50 [email or web address] Not available 2023 14:49:28 Medical History Condition Response EYE PROBLEMS Y HAVE YOU BEEN HOSPITALIZED OR SEEN IN [facility] ER IN THE PAST YEAR ? Y DIABETES, TYPE Y RETINOPATHY Y GI PROBLEMS Y DIZZINESS Y ANEMIA/BLOOD DISORDER Y Gynecological HistoryNo gynecological history recorded. Obstetrics History GPAL:G 0 P 0 0 0 0 Past Encounters Encounter ID Performer Location Encounter Start Date Encounter Closed Date Diagnosis/Indication Diagnosis SNOMED-CT Code Diagnosis ICD10 Code Diagnosis IMO Codes Diagnosis Note [id number] _ATHN_MIGR ATION_1 _ATHENA_M IGRATION_ DEFAULT_1 _1 , 05/20/2021 00:00:00 05/20/2021 17:39:37 [id number] Josie Juan MD [facility] Primary Care [address] [place] [address] 11/03/2021 00:00:00 11/20/2021 12:49:37 [id number] [facility] _ATHENA_M IGRATION_ DEFAULT_1 _1 , 12/03/2021 00:00:00 12/03/2021 20:54:13 [id number] [facility] _ATHENA_M IGRATION_ DEFAULT_1 _1 , 01/14/2022 00:00:00 01/14/2022 18:50:19 [id number] _ATHN_MIGR ATION_1 _ATHENA_M IGRATION_ DEFAULT_1 _1 , 02/03/2022 00:00:00 02/03/2022 16:49:05 [id number] Jimena Jacinto MD [facility] Endo [address] [place] [address] 06/17/2022 00:00:00 06/17/2022 16:11:43 [id number] Leigh Ann El MD [facility] [address] [facility] [address] [address] 12/08/2022 14:05:57 12/08/2022 14:54:49 Exocrine pancreatic insufficiency 91004889 K86.81 Chronic diarrhea 1818662 09 K52.9 Postcholec ystectomy syndrome 79348338 K91.5 Uncontroll ed type 2 diabetes mellitus 169689050 E11.65 Gastroesop hageal reflux disease without esophagitis 967158865 K21.9 [id number] Leigh Ann El MD [facility] General Surgery [address] [facility] [address] [address] 06/08/2023 14:49:20 06/08/2023 15:37:42 Exocrine pancreatic insufficiency 42900514 K86.81 Chronic diarrhea 3458550 09 K52.9 Postcholec ystectomy syndrome 37371786 K91.5 Uncontroll ed type 2 diabetes mellitus 104273671 E11.65 Gastroesop hageal reflux disease without esophagitis 500716327 K21.9 [id number] Leigh Ann El MD [facility] General Surgery [address] [facility] [address] [address] 12/07/2023 15:46:30 12/23/2023 12:38:33 Exocrine pancreatic insufficiency 46488155 K86.81 CONT CREON Chronic diarrhea 8903569 09 K52.9 Postcholec ystectomy syndrome 19058763 K91.5 Uncontroll ed type 2 diabetes mellitus 440938238 E11.65 Gastroesop hageal reflux disease without esophagitis 471100694 K21.9 CONT PANTOPRAZO LE 40 MG DAILY Health Concerns Section Related Observation LastModified by Organization Detai ls LastModified Time None Recorded Concern Status LastModified by Organization Details LastModified Time None Recorded Advance Directives Directive N: Payers Insurance Date Sequence Insurance Name Policy Number Policy Feliciano Covered Member ID Feliciano Member ID Guarantor Name 01/15/2025 1 [place] [id number] Silvina jj [id number] Silvina Benson ant Notes Date Note Type Note Provider Name and Address Organization Details Recorded Time 12/08/2022 text/html ROS as noted in the HPI BRAYAN WAS SEEN IN THE OFFICE TODAY FOR A F/U. PT HAS CHRONIC DIARRHEA DUE TO EPI. SHE IS TAKING CREON SUPPLEMENTS. TODAY SHE REPORTS THAT SHE IS DOING GREAT . HER ABD PAIN HAS RESOLVED . BMs ARE 2X DAILY EVERY OTHER DAY. Leigh Ann El MD [address], [place] [address], [place], [address], [facility] [employer] 12/08/2022 14:55:00 12/07/2023 text/html ROS as noted in the HPI BRAYAN WAS SEEN IN THE OFFICE TODAY FOR A F/U. PT HAS EPI AND IS ON CREON 36K , 2 TABS 3 X DAILY . PT IS S/P LAP BAND. SURGERY . PT IS C/O LUQ PAIN EVERY 4-6 WEEKS . SX ARE ASSOCIATED WITH N/V/PYROSIS/D/ CHILLS. BMs ARE 2-10 X DAILY . Leigh Ann El MD [address], [facility] [address], [place], [address], [facility] [employer] 12/07/2023 16:30:33 OBGyn Episode No OBEpisode recorded.
--- OUTSIDE RECORDS SUMMARY | 2025-03-15 01:56 | XMS_ITS | Patient Health Record ---
Author Organization 1 OF Ginna alonzo [facility] Address [address] [facility] [address] [place] [address] Care Team Providers Care Laminate Floor Installer Name Role Phone Franklyn CLARK, Tao Primary Care Provider Unavail able Fred Andrew Unavailable [phone] Allergies No Known Allergies Results Component Value Reference Range Notes Wound culture ([employer] R) Reviewed date:01/07/2025 07:48:47 PM Interpretation:Staphylococcus aureus (99.48%) (MRSA) see scanned document for details Performing Lab: Notes/Report: Staphylococcus aureus (99.48%) (MRSA) see scanned document for details Reason For Referral No Information Medications Medication SIG (Take, Route, Frequency, Duration) [...] 7 days 03/14/2025 Active Gabapentin 06/23/2024 Active Vitamin D 03/07/2025 Active NovoLOG ReliOn 100 UNIT/ML Solution Injection; Duration: 88 Days 04/25/2014 Active Farxiga 10 MG Tablet Oral; Duration: 90 Days 04/25 Active Medihoney Wound/Burn Dressing - Paste as directed Topical once daily; Duration: 1 month 08/30/2017 Active HumaLOG 04/25/2014 Active Social History Tobacco Use: Social History Observation Description Date Details (start date - stop date) Former Smoker NA - NA Social History Tobacco Use: Social Info Question Answer Notes Tobacco Control (Standard) Tobacco use: Former smoker Tobacco Use/Smoking Are you a former smoker How long has it been since you last smoked? 5-10 years Additional Details Category Social Info Options Details Miscellaneous: Exercise: Sedentary Occupation: Works full-time - [employer] Living with: family Drugs/Alcohol: Alcohol use: Jose Alejandro hodges alcohol use Recreational drugs Patient edu mitchell recreational drug use Problems Problem Type SNOMED Code ICD Code Onset Dates Problem Status W/U Status Risk Notes Problem Diabetic neuropathic arthropathy (587397280) Charcot foot due to diabetes mellitus (E11.610) Active confirmed Problem Diabetic peripheral neuropathy (639581850) Diabetic peripheral neuropathy (E11.42) Active confirmed Problem Skin ulcer of left foot with fat layer exposed (L97.522) Active confirmed Problem Ulcer of left foot (disorder) (747400355) Skin ulcer of left foot, limited to breakdown of skin (L97.521) Active confirmed Problem Polyneuropathy due to type 2 diabetes mellitus (534359519) Type 2 diabetes mellitus with peripheral neuropathy (E11.42) Active confirmed Problem History of amputation of right great toe (33590678805279111 ) History of amputation of right great toe (Z89.411) Active confirmed Problem History of amputation of left great toe (63679243918413246 ) History of amputation of left great toe (Z89.412) Active confirmed Problem Ulcer of left foot (disorder) (113837773) Ulcer of left foot with fat layer exposed (L97.522) Active confirmed Problem Arthropathy associated with a neurological disorder (34084796) Charcot joint of left foot (M14.672) Active confirmed Problem Methicillin resistant Staphylococcus aureus infection (856386592) MRSA infection (A49.02) Active confirmed Vital Signs Height 64 in 01/31/2025 Weight 175 lbs 01/31/2025 BMI 30.04 kg/m2 01/31/2025 Encounters Encounter Location Date Provider Diagnosis 1 OF Ginna Andrew DPM [facility] [address] [address] 02/19/2025 Fred Andrew 1 OF Ginna Andrew [place] [address] [place] [address] 02/21/2025 Fred Andrew Type 2 diabetes mellitus with peripheral neuropathy E11.42 and Ulcer of left foot with fat layer exposed L97.522 1 OF Ginna Andrew [place] [address] [place] [address] 02/26/2025 Fred Andrew 1 OF Ginna Andrew [place] [address] [place] [address] 02/28/2025 Fred Andrew 1 OF Ginna Flores [place] [address] [place] [address] 03/04/2025 Fred Andrew 1 OF Ginna Andrew [place] [address] [place] [address] 03/07/2025 Fred Andrew Type 2 diabetes mellitus with peripheral neuropathy E11.42 and Ulcer of left foot with fat layer exposed L97.522 1 OF Ginna Andrew [place] [address] [place] [address] 03/11/2025 Fred Andrew Type 2 diabetes mellitus with peripheral neuropathy E11.42 and Ulcer of left foot with fat layer exposed L97.522 1 OF Ginna Andrew [place] [address] [place] [address] 03/14/2025 Fred Andrew Type 2 diabetes mellitus with peripheral neuropathy E11.42 and Ulcer of left foot with fat layer exposed L97.522 1 OF Ginna Andrew [place] [address] [place] [address] 01/01/2025 Fred Andrew Charcot foot due to diabetes mellitus E11.610 ; Ulcer of left foot with fat layer exposed L97.522 ; Charcot joint of left foot M14.672 ; Left foot infection L08.9 ; Diabetic peripheral neuropathy E11.42 ; Vascular calcification I99.8 ; Hx of osteomyelitis Z87.39 ; History of amputation of left great toe Z89.412 and History of amputation of right great toe Z89.411 1 OF Ginna Flores Kamran [place] [address] [place] [address] 01/10/2025 Fred Andrew Charcot foot due to diabetes mellitus E11.610 ; Ulcer of left foot with fat layer exposed L97.522 ; Charcot joint of left foot M14.672 ; Diabetic peripheral neuropathy E11.42 ; Vascular calcification I99.8 ; Hx of osteomyelitis Z87.39 ; History of amputation of left great toe Z89.412 ; History of amputation of right great toe Z89.411 and MRSA infection A49.02 1 [facility] [address] [address] 01/21/2025 Fred Andrew Charcot foot due to diabetes mellitus E11.610 ; Ulcer of left foot with fat layer exposed L97.522 ; Charcot joint of left foot M14.672 ; Diabetic peripheral neuropathy E11.42 ; Vascular calcification I99.8 ; Hx of osteomyelitis Z87.39 ; History of amputation of left great toe Z89.412 ; History of amputation of right great toe Z89.411 and MRSA infection A49.02 1 OF Ginna Andrew [facility] [address] [address] 01/31/2025 Fred Andrew Charcot foot due to diabetes mellitus E11.610 ; Ulcer of left foot with fat layer exposed L97.522 ; Charcot joint of left foot M14.672 ; Diabetic peripheral neuropathy E11.42 ; Vascular calcification I99.8 ; Hx of osteomyelitis Z87.39 ; History of amputation of left great toe Z89.412 and History of amputation of right great toe Z89.411 1 OF Ginna Andrew [facility] [address] [address] 02/14/2025 Fred Andrew Charcot foot due to diabetes mellitus E11.610 ; Ulcer of left foot with fat layer exposed L97.522 ; Charcot joint of left foot M14.672 ; Diabetic peripheral neuropathy E11.42 ; Vascular calcification I99.8 ; Hx of osteomyelitis Z87.39 ; History of amputation of left great toe Z89.412 and History of amputation of right great toe Z89.411 1 [facility] [address] [place] [address] 03/14/2025 Fred Andrew 1 OF Ginna Andrew [facility] [address] [place] [address] 01/01/2025 Fred Andrew 1 OF [facility]na [facility] [address] [place] [address] 01/02/2025 Fred Kamran 1 OF Ginna Andrew [facility] [address] [place] [address] 01/21/2025 Fred Andrew Assessments Encounter Date Diagnosis (ICD Code) Assessment Notes Treatment Notes Treatment Clinical Notes Section Notes 01/01/2025 Charcot foot due to diabetes mellitus (ICD-10 - E11.610) Patient visit today included a review of medical history, review of systems, physical exam and discussion of exam findings, diagnostic test results, and discussion of diagnoses and treatment options. - A prescription for Bactrim DS for a 7-day course was provided for suspected soft tissue infection. - A tissue sample was obtained from the wound bed for culture and sensitivity testing to guide future antibiotic therapy if needed. Will contact Ms. Ramirez with results and any necessary changes to the antibiotic regimen. - Excisional debridement of wound of LT foot performed. - Dressing supplies will be ordered and sent to Ms. Ramirez's home through a [employer]. - Self-care recommendations include daily dressing changes. We will order dressing supplies from [employer]. - Advised to remain off-weight bearing on the left foot as much as possible. - Follow-up is scheduled in one week to reassess the wound. - Ms. Ramirez was educated on the potential to qualify for clinical trials for diabetic foot ulcers if the wound does not show signs of healing within four weeks. - Advised to bring current shoes and inserts to the next appointment for evaluation to determine if new diabetic shoes or modified orthotics are necessary to offload the pressure area. - Educated to monitor for any signs of worsening infection, including redness streaking up the foot, increased swelling, or increased pain, and to call the office immediately if any of these symptoms occur. Emphasized the importance of seeking immediate evaluation for any new wound or foot concern. Interventions: - The left foot ulcer was debrided of non-viable tissue at the wound margins. - A tissue culture was obtained from the base of the ulcer. - Ms. Ramirez was fitted with a removable offloading boot (size 8) to be worn to reduce pressure on the ulcerated area. The wound was dressed with gauze and the boot was applied in the office. Additional Notes: - Counseled on the importance of prompt medical attention for any new wounds or areas of concern on the feet, given the history of neuropathy and Charcot deformity. Ms. Ramirez verbalized understanding and agreement. - Ms. Ramirez expressed relief that the issue was being addressed, as the drainage and odor were causing significant worry. 01/10/2025 Charcot foot due to diabetes mellitus (ICD-10 - E11.610) 01/01/2025 Ulcer of left foot with fat layer exposed (ICD-10 - L97.522) 01/10/2025 Ulcer of left foot with fat layer exposed (ICD-10 - L97.522) - Discussed the need to add moisture to the wound environment. - Recommended initiating the use of Medihoney to add moisture to the wound bed. Advised that if the wound becomes too moist, she should decrease the frequency or stop the application of Medihoney. - Instructed to obtain Medihoney over the counter. - Continue with current oral antibiotic regimen as prescribed. - Advised to continue with daily dressing changes once the wound care supplies are delivered. - Follow-up scheduled in a few weeks. Advised to call the office if there are any concerns, such as the wound appearing worse. Interventions: - The wound was assessed and measured. The old dressing was removed. A new dressing was applied in-office. 01/21/2025 Charcot foot due to diabetes mellitus (ICD-10 - E11.610) 01/21/2025 Ulcer of left foot with fat layer exposed (ICD-10 - L97.522) 01/31/2025 Charcot foot due to diabetes mellitus (ICD-10 - E11.610) 01/31/2025 Ulcer of left foot with fat layer exposed (ICD-10 - L97.522) - Patient consented to participate in the [facility] clinical research study. - Patient will be transferred to the research clinic for study-related procedures, including pre-debridement photos and vascular testing. - See study related documentation for details. 02/14/2025 Charcot foot due to diabetes mellitus (ICD-10 - E11.610) 02/21/2025 Type 2 diabetes mellitus with peripheral neuropathy (ICD-10 - E11.42) 02/21/2025 Ulcer of left foot with fat layer exposed (ICD-10 - L97.522) 03/07/2025 Type 2 diabetes mellitus with peripheral neuropathy (ICD-10 - E11.42) 03/07/2025 Ulcer of left foot with fat layer exposed (ICD-10 - L97.522) 03/11/2025 Type 2 diabetes mellitus with peripheral neuropathy (ICD-10 - E11.42) 03/14/2025 Type 2 diabetes mellitus with peripheral neuropathy (ICD-10 - E11.42) 03/14/2025 Ulcer of left foot with fat layer exposed (ICD-10 - L97.522) 03/11/2025 Ulcer of left foot with fat layer exposed (ICD-10 - L97.522) Study treatment applied for full 16 minutes. No issues reported. Wound size unchanged. WIll reassess offloading with Dr. Andrew at next visit. 01/31/2025 Charcot joint of left foot (ICD-10 - M14.672) 02/14/2025 Ulcer of left foot with fat layer exposed (ICD-10 - L97.522) - Wound has reduced in size by 22% over the last two weeks. - Patient qualified to continue with clinical trial. - Discussed application of a specialized device for 16 minutes per session, twice weekly, to promote healing. - Dressing today to be hydrogel and adhesive foam. - May change dressing at home as needed. - Follow-up schedule: Will be seen twice a week for up to 8 weeks or until healed. Can be seen next week on Tuesday or Tuesday, and continue with 01/21/2025 Charcot joint of left foot (ICD-10 - M14.672) 01/10/2025 Charcot joint of left foot (ICD-10 - M14.672) 01/01/2025 Charcot joint of left foot (ICD-10 - M14.672) 01/01/2025 Left foot infection (ICD-10 - L08.9) 01/10/2025 Diabetic peripheral neuropathy (ICD-10 - E11.42) 01/21/2025 Diabetic peripheral neuropathy (ICD-10 - E11.42) 01/31/2025 Diabetic peripheral neuropathy (ICD-10 - E11.42) 02/14/2025 Charcot joint of left foot (ICD-10 - M14.672) 01/31/2025 Vascular calcification (ICD-10 - I99.8) 02/14/2025 Diabetic peripheral neuropathy (ICD-10 - E11.42) 01/21/2025 Vascular calcification (ICD-10 - I99.8) 01/10/2025 Vascular calcification (ICD-10 - I99.8) 01/01/2025 Diabetic peripheral neuropathy (ICD-10 - E11.42) 01/10/2025 Hx of osteomyelitis (ICD-10 - Z87.39) 01/01/2025 Vascular calcification (ICD-10 - I99.8) 01/21/2025 Hx of osteomyelitis (ICD-10 - Z87.39) 02/14/2025 Vascular calcification (ICD-10 - I99.8) 01/31/2025 Hx of osteomyelitis (ICD-10 - Z87.39) 01/21/2025 History of amputation of left great toe (ICD-10 - Z89.412) 01/31/2025 History of amputation of left great toe (ICD-10 - Z89.412) 02/14/2025 Hx of osteomyelitis (ICD-10 - Z87.39) 01/10/2025 History of amputation of left great toe (ICD-10 - Z89.412) 01/01/2025 Hx of osteomyelitis (ICD-10 - Z87.39) 01/10/2025 History of amputation of right great toe (ICD-10 - Z89.411) 01/01/2025 History of amputation of left great toe (ICD-10 - Z89.412) 01/21/2025 History of amputation of right great toe (ICD-10 - Z89.411) 02/14/2025 History of amputation of left great toe (ICD-10 - Z89.412) 01/31/2025 History of amputation of right great toe (ICD-10 - Z89.411) 02/14/2025 History of amputation of right great toe (ICD-10 - Z89.411) 01/21/2025 MRSA infection (ICD-10 - A49.02) 01/10/2025 MRSA infection (ICD-10 - A49.02) 01/01/2025 History of amputation of right great toe (ICD-10 - Z89.411) 01/21/2025 Other - Excisional debridement performed. - MRSA infection appears to have responded well to the oral antibiotics. No additional antibiotics necessary at this time but will continue to monitor closely. - Discussed two clinical trial options for diabetic wounds, as the wound will meet the 4-week minimum duration shortly. One trial involves a post-market tissue graft. The other involves a device combining red light therapy and magnetism, which is approved in [place]. sales promotion coordinator will review chart for eligibility. Patient expressed interest. - Recommended an Even-up device for the contralateral shoe to balance height with the offloading boot and potentially alleviate back pain. - Advised to attempt wearing the offloading boot again with the Even-up device, even for short, tolerable periods. Can switch to the surgical shoe when back pain occurs. - Fitted with a small-sized Even-up device for the right shoe. - Patient is willing to try the Even-up device to improve boot tolerance. - Follow-up scheduled in two weeks. Will attempt to schedule an earlier appointment next week if eligible for a clinical trial. Plan Of Treatment Next Appt Details Provider Name:Fred Andrew, 03/18/2025 01:00:00 PM, [address], [place], [address], Provider Name:Fred Andrew, 03/20/2025 02:30:00 PM, [address], [place], [address], Insurance Providers Payer Name Payer Address Payer Phone Subscriber Number Group Number Insured Name Patient Relationship to Insured Coverage Start Date Coverage End Date [facility] [address] [place] [address] [phone] [id number] Silvina Moya Self - patient is the insured Medical (General) History Medical History History ICD Code diabetes, neuropathy of feet GERD/Reflux back pain hyperlipidemia Wounds (nonhealing leg/foot) Surgical History Surgery Date(Month/Year) left great toe amputation 2002 RT hallux amputation 1999
--- OUTSIDE RECORDS SUMMARY | 2025-03-18 07:00 | XMS_ITS ---
Author Organization 1 OF [facility] Address [address] [place] [address] Care Team Providers Care Content Editor Name Role Phone Franklyn CLARK, Tao Primary Care Provider Unavail Fred Wylie Unavailable [phone] Allergies Allergen (clinical drug ingredient) Drug/Non Drug [...] 1 OF [facility] [address] [place] [address] 03/18/2025 Fred Andrew Type 2 diabetes mellitus [...] P iomic Visit 11 Provider Name:Fred Andrew, 04/02/2025 01:40:00 PM, [address], [place], [address], Provider Name:Fred Andrew, 04/05/2025 08:40:00 AM, [address], [address], [place], [address], History and Physical Notes * HPI (History [...] * Silvina RAMIREZDOB :1960 (64 yo F)Acc No.[id number]:03/18/2025 CLINICAL TRIAL RELATED VISIT Patient: Casimiro mollyharmeetSilvina Phillips Provider: Ginna Andrew DPM :1960 A ge:64 Y S ex:Female Date:03/18/2025 Address:[address] [place] [address] [facility] Pcp:Tao Estes MD Subjective: * Chief [...] wound as directed Externally Once a day [facility] Wound/Burn Dressing - Paste as directed Topical once daily Medication List reviewed and reconciled with the patientDiscontinued Santyl 250 UNIT/GM Ointment Apply to wound as directed Externally Once a day Discontinued [facility] Wound/Burn Dressing - Paste as directed Topical [...] Andrew DPM on 03/29/2025 at 01:09 AM AIRCRAFT SYSTEMS REPAIRER Sign off status: Pending * Provider: Ginna Andrew DPM Date: 05/18/2024 Generated for Casandra mayer/Caroline/Yasmani on: 05/30/2024 01:09 AM AIRCRAFT SYSTEMS REPAIRER
--- OUTSIDE RECORDS SUMMARY | 2025-03-20 08:30 | XMS_ITS ---
Author Organization 1 OF Ginna alonzo [facility] Address [address] [place] [address] Care Team Providers Care Boat Patcher Plastic Name Role Phone Franklyn CLARK, Mettisa Primary Care Provider Unavail Fred Wylie Unavailable [phone] REASON FOR VISIT Piomic Visit 11 Encounters Encounter Location Date Provider Diagnosis 1 OF [facility] [address] [place] [address] 03/20/2025 Fred Andrew Plan Of Treatment Next Appt Details Provider Name:Fred Andrew, 04/02/2025 01:40:00 PM, [address], [address], [place], [address], Provider Name:Fred Andrew, 04/05/2025 08:40:00 AM, [address], [address], [place], [address], Progress Notes * Silvina RAMIREZDOB :1960 (64 yo F)Acc No.[id number]:03/20/2025 CLINICAL TRIAL RELATED VISIT Patient: Silvina Lopes Provider: Ginna Andrew DPM :1960 A ge:64 Y S ex:Female Date:03/20/2025 Address:[facility] [place] Pcp:Tao Estes MD Subjective: * Chief Complaints: * P iomic Visit 11 * Electronic signature of Christopher Andrew DPM on 03/29/2025 at 01:10 AM DICER MACHINE OPERATOR Sign off status: Pending * Provider: Ginna Andrew DPM Date: 05/20/2024 Generated for Casandra mayer/Caroline/Yasmani on: 05/30/2024 01:10 AM DICER MACHINE OPERATOR
--- OUTSIDE RECORDS SUMMARY | 2025-03-25 06:40 | XMS_ITS ---
Author Organization 1 OF Ginna alonzo [facility] Address [address] [place] [address] Care Team Providers Care Valve Seater Operator Name Role Phone Franklyn CLARK, Mettisa Primary Care Provider Unavail Fred Wylie Unavailable [phone] REASON FOR VISIT Piomic Visit 12 Encounters Encounter Location Date Provider Diagnosis 1 OF [facility] [address] [place] [address] 03/25/2025 Fred Andrew Plan Of Treatment Next Appt Details Provider Name:Fred Andrew, 04/02/2025 01:40:00 PM, [address], [address], [place], [address], Provider Name:Fred Andrew, 04/05/2025 08:40:00 AM, [address], [address], [place], [address], Progress Notes * Silvina RAMIREZDOB :1960 (64 yo F)Acc No.[id number]:03/25/2025 CLINICAL TRIAL RELATED VISIT Patient: Silvina Lopes Provider: Ginna Andrew DPM :1960 A ge:64 Y S ex:Female Date:03/25/2025 Address[facility] Pcp:Tao Estes MD Subjective: * Chief Complaints: * P iomic Visit 12 * Images * Piomic Visit 12 * Electronic signature of Christopher Andrew DPM on 03/29/2025 at 01:10 AM CEO Sign off status: Pending * Provider: Ginna Andrew DPM Date: 05/26/2024 Generated for Casandra mayer/Caroline/Demetrioitting on: 05/30/2024 01:10 AM CEO
--- OUTSIDE RECORDS SUMMARY | 2025-03-28 07:00 | XMS_ITS ---
Author Organization 1 OF [facility] Address [address] [place] [address] Care Team Providers Care Front Desk Officer Name Role Phone Franklyn CLARK, Mettisarmani Primary Care Provider Unavail able Fred Andrew Unavailable Genevieve Reed Unavailable [phone] REASON FOR VISIT Piomic Visit 13 Encounters Encounter Location Date Provider Diagnosis 1 OF [facility] [address] [place] [address] 03/28/2025 Genevieve Reed Plan Of Treatment Next Appt Details Provider Name:Fred Andrew, 04/02/2025 01:40:00 PM, [address], [address], [place], [address], Provider Name:Fred Andrew, 04/05/2025 08:40:00 AM, [address], [place], [address], Progress Notes * Silvina RAMIREZDOB :1960 (64 yo F)Acc No.[id number]:03/28/2025 CLINICAL TRIAL RELATED VISIT Patient: Casimiro Silvina Gooden Provider: Vickie Reed DPM :1960 A ge:64 Y S ex:Female Date:03/28/2025 Address:[address] [place] [address] [facility] Pcp:Tao Estes MD Subjective: * Chief Complaints: * P iomic Visit 13 * Electronic signature of Melany Reed DPM on 03/29/2025 at 01:10 AM OPERATIONS TRAINER Sign off status: Pending * Provider: Vickie Reed DPM Date: 05/29/2024 Generated for Casandra mayer/Caroline/Yasmani on: 05/30/2024 01:10 AM OPERATIONS TRAINER
--- OUTSIDE RECORDS SUMMARY | 2025-03-28 07:10 | XMS_ITS ---
Author Organization 1 OF Ginna alonzo [facility] Address [address] [place] [address] Care Team Providers Care Police Artist Name Role Phone Franklyn CLARK, Mettisa Primary Care Provider Unavail Fred Wylie Unavailable REASON FOR VISIT Piomic Visit 13 Encounters Encounter Location Date Provider Diagnosis 1 OF Ginna Andrew [facility] [address] [place] [address] 03/28/2025 Fred Andrew Plan Of Treatment Next Appt Details Provider Name:Fred Andrew, 04/02/2025 01:40:00 PM, [address], [address], [place], [address], Provider Name:Fred Andrew, 04/05/2025 08:40:00 AM, [address], [address], [place], [address], Progress Notes * Silvina RAMIREZDOB :1960 (64 yo F)Acc No.[id number]:03/28/2025 CLINICAL TRIAL RELATED VISIT Patient: Silvina Lopes Provider: Ginna Andrew DPM :1960 A ge:64 Y S ex:Female Date:03/28/2025 Address:[facility] [place] Pcp:Tao Estes MD Subjective: * Chief Complaints: * P iomic Visit 13 * Electronic signature of Christopher Andrew DPM on 03/29/2025 at 01:09 AM PALLET ASSEMBLER Sign off status: Pending * Provider: Ginna Andrew DPM Date: 1 05/29/2024 Generated for Casandra mayer/Caroline/Yasmani on: 05/30/2024 01:09 AM PALLET ASSEMBLER
[2025-03-28 13:37] VITALS: BMI 29.9
--- NOTE | 2025-03-28 13:38 | PC.NURSE ---
[facility] has started construction of its new state of the art ER which will open Spring 2026. With this, we anticipate parking may be a challenge for some our surgical patients and families. Parking spaces are limited but are available for all Surgical, obstetrics, and ER patients sharing this lot. If you arrive and find you are having a hard time finding a parking space, please note that we understand the challenges, please drive around the hospital and park near Hospital Entrance 1. When you enter this entrance, you can ask a volunteer to direct or take you back to the surgical waiting area to check in. We appreciate everyone?s understanding of these expected challenges while we build for your future. Report to the Outpatient Waiting Room, entrance under the green pavilion located off [address], at time 0930 on date 03/29/25. Planned Procedure Time: 1130.? Time changes happen often and if your time is changed the preop area will call you the afternoon before. - You and your visitor will be asked to self-screen and do not enter if you have any COVID symptoms. Please call surgeon if you need to reschedule. - A mask is optional within the hospital at this time. Patients may have clear liquids (water, carbonated beverages, clear teas, apple juice) until 3 hours prior to surgery with a maximum of 20 ounces. - No food from midnight until time of surgery and no smoking, or chewing tobacco (or any form of nicotine). No chewing gum, candy or mints. Take only the following medications with a SIP of water on the morning of surgery: NONE DO NOT STOP ANY OF YOUR OTHER PRESCRIPTION MEDICATIONS PRIOR TO SURGERY EXCEPT THE FOLLOWING Hold all vitamins and supplements for 3 days per anesthesiologist. Medications to discontinue per physician Date to take last dose Please no make-up, nail uzbek, hairspray, perfume, deodorant, or body powder the day of surgery.? No jewelry (including any body piercings) or valuables the day of surgery, leave them at home.? Please take a shower or bath the night before, or the morning of, surgery with an antibacterial soap.? Wear comfortable, loose fitting clothing.? Children are encouraged to wear pajamas. - Jewelry must be removed prior to entering the operating room.? Rings and piercings that are not removed may be cut off. - The hospital will not accept responsibility for valuables.? - Please leave all valuables, including medications, at home the day of surgery. If you are going home after surgery, a licensed driver manager must drive you home.? - NO public transportation without another adult if you receive anesthesia. - We recommend that an adult stay with you for 24 hours following discharge. - We also recommend that you do not drive, make important decision, drink alcoholic beverages, or take any drugs that were not prescribed by your health care provider for at least 24 hours after your discharge time. For Pediatric surgeries, we recommend two adults accompany the child home. Follow any additional instructions given to you from your surgeon. Telephone instructions given to _PATIENT_and asked if any additional questions and then verbalized understanding. Patient advised to call surgeon office or pre surgery nurse liaison [phone] if any additional questions.
[2025-03-29] VITALS (10 sets, daily range): BP systolic 114–166; BP diastolic 54–88; PULSE 84–103; RESP 12–20; TEMP 36.5–36.6; O2SAT 93–100; BMI 29.7
--- NOTE | ~2025-03-29 | XR_ITS ---
EXAMINATION: XR abdomen/kub 1V DATE: 03/29/2025 09:45 INDICATION: Bilateral nephrolithiasis for planned lithotripsy TECHNIQUE: A supine view of the abdomen on 2 radiographs was obtained. COMPARISON: 02/26/2025 FINDINGS: No change in a 1.3 cm densely calcified stone projecting over the mid left kidney. Additional small calcifications projecting more medially at the hilum appears to correspond to atherosclerotic calcifications at the periphery of the renal artery. Similar peripheral vascular calcifications are seen along the splenic artery and multiple arteries in the pelvis. There are few phleboliths in the pelvis. No right-sided urolithiasis. No dilated loops of gas-filled bowel to suggest obstruction. Expected appearance of adjustable laparoscopic band with reservoir projecting over the central lower abdomen, band projecting over the gastroesophageal junction with normal phi angle of 35 degrees and intact appeari ng intervening catheter. Cholecystectomy clips in right upper quadrant. IMPRESSION: 1. 1.3 cm stone projecting over the mid left kidney. Reviewed, dictated and finalized at location A. ING TECHNICIAN
--- OUTSIDE RECORDS SUMMARY | 2025-03-29 01:09 | XMS_ITS | Clinical Summary ---
Author Organization [facility] [address] [facility] Address [address] [place] [address] Care Team Providers Care Rounder Hand Name Role Phone Lana Bedoya NP Unavailable [phone] Steven Henning DO Unavailable [phone] Gisell Hsieh MD Primary Care Provider [phone] Lanre Maddox MD Unavailable Allergies Active Allergy Reactions Criticality Noted Date Comments Metformin Medications NovoLOG 100 unit/mL vial for injection 4 Active insulin lispro (HumaLOG) 100 unit/mL pen for injection Rx: Humalog KwikPen 100 UNIT/ML Solution Pen-injector, TAKE: as directed, 5 units with evening meal, REFILLS: 0 Active lidocaine (LIDODERM) 5 % APPLY ONE PATCH TOPICALLY TO CLEAN, DRY SKIN. LEAVE ON FOR 12 HOURS THEN REMOVE. MUST WAIT AT LEAST 12 HOURS BEFORE APPLYING PATCH(ES) AGAIN. [address] (PROTONIX) 40 mg EC tablet Take 1 tablet (40 mg total) by mouth daily 4 Active pen needle, diabetic (Pen Needle) 31 gauge x 3/16 needle daily 7 Active rosuvastatin (CRESTOR) 20 mg tablet Take 1 tablet (20 mg total) by mouth daily 4 Active gabapentin (NEURONTIN) 100 mg capsuleIndicatio ns:Neuropathy involving both lower extremities Take 1 capsule (100 mg total) by mouth 3 (three) times a day 90 capsule 3 5 Active lipase/protease/ amylase (CREON ORAL) Take by mouth 3 (three) times a day before meals Active Active Problems Problem Noted Date Diagnosed Date Preoperative state 11/06/2013 Overview (07/29/2016): PREOP CARDIOVSCLR EXAM Type 2 diabetes mellitus 09/08/2013 Overview (07/29/2016): DMII WO CMP NT ST UNCNTR Paroxysmal tachycardia 09/08/2013 Overview (07/29/2016): PAROX TACHYCARDIA NOS Tachycardia 09/08/2013 Overview (07/29/2016): TACHYCARDIA NOS Encounters Date Type Department Care Team Description 02/27/2025 8:35 AM GUEST SERVICE SUPERVISOR - 02/27/2025 11:59 PM GUEST SERVICE SUPERVISOR Hospital Encounter [facility] [address] [place] [address] Lanre Maddox MD Bulge of lumbar disc without myelopathy (Primary Dx); Radiculopathy, lumbar region; Neural foraminal stenosis of lumbar spine Discharge Disposition: Discharge to home or self care 02/11/2025 10:55 AM CDT - 02/11/2025 11:59 PM CDT Hospital Encounter [facility] [address] [place] [address] Lanre Maddox MD Bulge of lumbar disc without myelopathy; Neural foraminal stenosis of lumbar spine; Radiculopathy, lumbar region Discharge Disposition: Discharge to home or self care 01/31/2025 2:16 PM CDT - 01/31/2025 11:59 PM CDT Hospital Encounter [facility] [address] [place] [phone] Lanre Maddox MD Bulge of lumbar disc without myelopathy (Primary Dx); Neural foraminal stenosis of lumbar spine; Radiculopathy, lumbar region Discharge Disposition: Discharge to home or self care 01/23/2025 3:18 PM CDT - 01/23/2025 11:59 PM CDT Hospital [facility] [address] [place] [address] Abnormal findings on diagnostic imaging of other specified body structures Discharge Disposition: Discharge to home or self care from Last 3 Months Surgical History Surgery Date Site/Laterality Comments TUBAL LIGATION Bilateral tubal ligation OTHER SURGICAL HISTORY D & C EYE SURGERY Eye surgery CHOLECYSTECTOMY Cholecystectomy SECTION Caesarean Section OTHER SURGICAL HISTORY 2007 vitreous hemorrhage IR INJECTION ARTHROGRAM SI J OINT LEFT INCLUDES IMAGING GUIDANCE 11/16/2024 Left IR INJECTION ARTHROGRAM SI J OINT RIGHT INCLUDES IMAGING GUIDANCE 11/16/2024 Right Medical History Medical History Date Comments Diabetes mellitus Diabetes Hypertension Hypertension Hx Other Medical Acid indigestio n Hx Other Medical Cataracts Adiposity Obesity DDD (degenerative disc disease), lumbar Lumbar facet arthropathy Family History Medical History Relation Name Comments Diabetes Mother Other Other 1 Family history of Cancer -lymphoma; Diabetes type II Other 2 Family hist ory of Diabetes -Type II; Other Other 3 No family histo ry of Asthma; Other Other 4 No family histo ry of Coronary artery disease; Other Other 5 No family histo ry of Stroke; Other Other 6 No family histo ry of Aneurysm; Other Other 7 No family histo ry of Hypertension; Other Other 8 No family histo ry of Renal disease; Relation Name Status Comments Mother Other 1 Other 2 Other 3 Other 4 Other 5 Other 6 Other 7 Other 8 Social History Tobacco Use Types Packs/Day Years Used Date Smoking Tobacco: Former Cigarettes Q uit: 2009 Tobacco Cessation:Counseling Given: Not Answered Alcohol Use Standard Drinks/Week Comments No 0 (1 standard drink = 0.6 oz pur e alcohol) AUDIT-C Answer Date Recorded Q1: How often do you have a drink containing alc ohol? Never 04/09/2024 Average Number of Drinks Not on file 024 Q3: How often do you have si x or more drinks on one occasion? 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 Not on file Not on file Last Filed Vital Signs Vital Sign Reading Time Taken Comments Blood Pressure 117/75 02/27/2025 10:01 AM GUEST SERVICE SUPERVISOR Pulse 103 02/27/2025 10:01 AM GUEST SERVICE SUPERVISOR Temperature 36.3 C (97.4 F) 02/27/2025 8:44 AM GUEST SERVICE SUPERVISOR Respiratory Rate 18 02/27/2025 10:01 AM GUEST SERVICE SUPERVISOR Oxygen Saturation 98% 02/27/2025 10:01 AM GUEST SERVICE SUPERVISOR Inhaled Oxygen Concentration - - Weight 82.7 kg (182 lb 4.8 oz) 01/31/2025 3:14 P M CDT Height 162.6 cm (5' 4) 01/31/2025 3:14 PM CDT Body Mass Index 31.29 01/31/2025 3:14 PM CDT Plan of Treatment Health Maintenance Due Date Last Done Comments Albumin Creatinine Ratio, Urine 1960 Breast Cancer Screening-Mammogram 1960 Cervical Cancer Screening 1960 Colon Cancer Screening-Colonoscopy 1960 Depression Screening 1960 Hepatitis C Screening 1960 eGFR 1960 Dilated Eye Exam 1960 Foot Exam 1960 DTaP/Tdap/Td Vaccine (1 - Tdap) 1971 Hepatitis B Screening 1978 Regular Well Visit/Exam 18-64 1978 Hemoglobin A1C 05/29/2017 11/26/2016, 08/20/2016 Lipid Panel 11/26/2017 11/26/2016, 08/20/2016 Covid-19 Vaccine ( - 2024-2 6 season) 2024 04/27/2021, 07/10/2020, 06/19/2020 Zoster Vaccine Completed 06/04/2022, 11/17/2021 Influenza Vaccine Completed 02/01/2025, , 01/28/2018, Additional history exists Pneumococcal vaccine <65 Completed 02/01/2025, 08/2016 Procedures Procedure Name Priority Date/Time Associated Diagnosis Comments PAIN MGMT IMAGING LUMBAR/SACRAL SELECTIVE NERVE ROOT INJ (TFE) LEFT Schedule Routine, Read Routine (OP Routine) 02/27/2025 9:39 AM GUEST SERVICE SUPERVISOR Radiculopathy, lumbar region PAIN MGMT IMAGING LUMBAR/SACRAL SELECTIVE NERVE ROOT INJ (TFE) LEFT Schedule Routine, Read Routine (OP Routine) 02/11/2025 12:25 PM CDT Bulge of lumbar disc without myelopathy Neural foraminal stenosis of lumbar spine Radiculopathy, lumbar region CT ABDOMEN PELVIS WO CONTRAST Schedule Routine, Read Routine (OP Routine) 01/23/2025 3:27 PM CDT Abnormal findings on diagnostic imaging of other specified body structures HEMOGLOBIN A1C Routine 11/26/2016 9:26 AM CDT LIPID PANEL Routine 11/26/2016 9:26 AM CDT from Last 3 Months or Most Recently Relevant to Health Maintenance Results * Imaging Lumbar/Sacral Selective Nerve Root INJ (TFE) Left (52055) (02/27/2025 9:39 AM GUEST SERVICE SUPERVISOR) Narrative [facility] - 02/27/2025 10:28 AM GUEST SERVICE SUPERVISOR The images from this study are not interpreted by Radiology. Please refer to the physician's procedure / OR operative note. Lanre Maddox MD [facility] PAIN MGMT PROCEDURES [facility] Performing Organization Address [facility] Co de Phone Number [email or web address] * Imaging Lumbar/Sacral Selective Nerve Root INJ (TFE) Left ([id number]) (02/11/2025 12:25 PM CDT) Narrative [facility] - 02/11/2025 4:38 PM CDT The images from this study are not interpreted by Radiology. Please refer to the physician's procedure / OR operative note. Lanre Maddox MD [facility] PAIN MGMT PROCEDURES Final R esult Performing Organization Address [facility] Co de Phone Number [email or web address] * CT Abdomen Pelvis WO Contrast (01/23/2025 3:27 PM CDT) Anatomical Region Laterality Modality Body N/A Computed Tomogra phy 01/25/2025 9:23 PM CDT Narrative 01/25/2025 9:27 PM CDT EXAM DESCRIPTION: CT ABDOMEN PELVIS WO CONTRAST REASON FOR STUDY: abnormal findings on diagnostic imaging of other specified body structures Renal stones seen on other imaging (MRI 12/19/24) Hx cholecystectomy and TECHNIQUE: CT scan of the abdomen and pelvis performed without intravenous and without oral contrast using helical scanning technique. Reconstructed coronal and sagittal MPR images reviewed. All images stored on PACS. Automated exposure control was used as a dose optimization technique for this examination. COMPARISON: Lumbar spine MRI 11/16/2024 FINDINGS: The sensitivity for detection of visceral lesions is diminished without the use of intravenous contrast. LOWER CHEST: No significant pulmonary abnormalities. No effusion. Moderate size hiatal hernia. Coronary artery calcification. Bibasilar atelectasis. LIVER: Normal size. No identified cystic or solid masses. GALLBLADDER: Surgically absent. BILE DUCTS: No intrahepatic or extrahepatic ductal dilatation. SPLEEN: Normal size. No focal lesions. PANCREAS: No identified cystic or solid masses. No significant calcifications. No adjacent inflammation or peripancreatic fluid collections. Pancreatic duct not dilated. Pancreatic atrophy. ADRENALS: Normal. KIDNEYS/URINARY TRACT: There are nonobstructing bilateral renal stones including a 1.6 cm nonobstructing stone in the upper pole collecting system of the left kidney. No obstructing renal or ureteral calculus. Bilateral renal vascular calcification. Urinary bladder is unremarkable. GI: No dilated bowel loops. No obvious wall thickening. Normal appendix. No significant diverticular disease. Gastric banding. PERITONEUM: No ascites or free air. RETROPERITONEUM: No mass or adenopathy. REPRODUCTIVE: Multiple calcified uterine fibroids. VASCULATURE: Atherosclerotic disease in the aorta, iliacs, and coronary arteries MUSCULOSKELETAL: Multilevel degenerative changes are present without fracture. No concerning lesions are present. OTHER: No other abnormality. IMPRESSION: 1. Nonobstructing bilateral renal stones. No obstructing renal or ureteral calculus. 2. Moderate size hiatal hernia. 3. Coronary artery calcification. 4. Surgical absence of the gallbladder. 5. Pancreatic atrophy. 6. Multiple calcified uterine fibroids. THIS IS AN ELECTRONICALLY VERIFIED FINAL REPORT 01/25/2025 9:27 PM - Electronically signed by Walter Topete M.D. KT T: Report ID: [id number] Reading Location: [id number] Procedure Note Walter Topete MD - 01/25/2025 EXAM DESCRIPTION: CT ABDOMEN PELVIS WO CONTRAST REASON FOR STUDY: abnormal findings on diagnostic imaging of otherspecified body structures Renal stones seen on other imaging (MRI 12/19/24) Hx cholecystectomy and TECHNIQUE: CT scan of the abdomen and pelvis performed without intravenousand without oral contrast using helical scanning technique. Reconstructed coronal and sagittal MPR images reviewed. All images stored on PACS.Automated exposure control was used as a dose optimization technique for this examination. COMPARISON: Lumbar spine MRI 11/16/2024 FINDINGS: The sensitivity for detection of visceral lesions is diminished without the use of intravenous contrast. LOWER CHEST: No significant pulmonary abnormalities. No effusion.Moderate size hiatal hernia. Coronary artery calcification. Bibasilaratelectasis. LIVER: Normal size. No identified cystic or solid masses. GALLBLADDER: Surgically absent. BILE DUCTS: No intrahepatic or extrahepatic ductal dilatation. SPLEEN: Normal size. No focal lesions. PANCREAS: No identified cystic or solid masses. No significant calcifications. No adjacent inflammation or peripancreatic fluidcollections. Pancreatic duct not dilated. Pancreatic atrophy. ADRENALS: Normal. KIDNEYS/URINARY TRACT: There are nonobstructing bilateral renal stones including a 1.6 cm nonobstructing stone in the upper pole collectingsystem of the left kidney. No obstructing renal or ureteral calculus. Bilateralrenal vascular calcification. Urinary bladder is unremarkable. GI: No dilated bowel loops. No obvious wall thickening. Normalappendix. No significant diverticular disease. Gastric banding. PERITONEUM: No ascites or free air. RETROPERITONEUM: No mass or adenopathy. REPRODUCTIVE: Multiple calcified uterine fibroids. VASCULATURE: Atherosclerotic disease in the aorta, iliacs, and coronary arteries MUSCULOSKELETAL: Multilevel degenerative changes are present without fracture. No concerning lesions are present. OTHER: No other abnormality. IMPRESSION: 1. Nonobstructing bilateral renal stones. No obstructing renal orureteral calculus. 2. Moderate size hiatal hernia. 3. Coronary artery calcification. 4. Surgical absence of the gallbladder. 5. Pancreatic atrophy. 6. Multiple calcified uterine fibroids. THIS IS AN ELECTRONICALLY VERIFIED FINAL REPORT 01/25/2025 9:27 PM - Electronically signed by Walter Topete M.D. KT T: Report ID: [id number] Reading Location: [id number] Gisell Hsieh MD IMG CT PROCEDURES Final Resu lt * (ABNORMAL) Hemoglobin A1c (11/26/2016 9:26 AM CDT) HEMOGLOBIN A1c 8.9(H) <5.7 % of total Hgb [facility] HISTORICAL RESULTS Comment: For someone without known diabetes, a hemoglobin A1c value of 6.5% or greater indicates that they may have diabetes and this should be confirmed with a follow-up test. For someone with known diabetes, a value < 7% indicates that their diabetes is well controlled and a value greater than or equal to 7% indicates suboptimal control. A1c targets should be individualized based on duration of diabetes, age, comorbid conditions, and other considerations. Currently, no consensus exists regarding use of hemoglobin A1c for diagnosis of diabetes for children. 11/26/2016 9:26 AM CDT 11/27/2016 1:20 AM CDT Narrative [facility] HISTORICAL RESULTS - 11/27/2016 1:10 AM CDT 0; 0; 0 FASTING:YES PERFORMING LAB: [place], [facility] [address] [address] [facility] [place] [address] Jordan Phillips D.O., MPH Tao De Jesus MD LAB BLOOD ORDERABLES Final Result [facility] HISTORICAL RESULTS * (ABNORMAL) Lipid panel (11/26/2016 9:26 AM CDT) CHOLESTEROL, TOTAL 177 125 - 200 mg/dL [facility] H[facility]ORICAL RESULTS HDL CHOLESTEROL 56 > OR = 46 mg/dL [facility] RESULTS TRIGLYCERIDES 173(H) <150 mg/dL [facility] H[facility]ORICAL RESULTS LDL-CHOLESTEROL 86 <130 mg/dL (calc) [facility]ORICAL RESULTS Comment: Desirable range < 100 mg/dL for patients with CHD or diabetes and < 70 mg/dL for diabetic patients with known heart disease. CHOL/HDLC RATIO 3.2 < OR = 5.0 (calc) [facility] HISTORICAL RESULTS NON HDL CHOLESTEROL 121 mg/dL (calc) [facility]ORICAL RESULTS Comment: Target for non-HDL cholesterol is 30 mg/dL higher than LDL cholesterol target. 11/26/2016 9:26 AM CDT 11/27/2016 1:20 AM CDT Narrative [facility] HISTORICAL RESULTS - 11/27/2016 1:10 AM CDT 0; 0; 0 FASTING:YES PERFORMING LAB: [place], [facility] [address] [place] [address] Jordan Phillips D.O., MPH Tao De Jesus MD LAB BLOOD ORDERABLES Final Result [facility] HISTORICAL RESULTS from Last 3 Months or Most Recently Relevant to Health Maintenance Insurance [employer] O[employer] Care Teams Rounder Hand Relationship Specialty Start Date End Date Gisell Hsieh MD [address] [place] [address] PCP - General Emergency Medicine 01/31/25 Lana Bedoya [employer]OWERHOUSE ELECTRICIAN [facility] [address] [place] [id number] Nurse Practitioner Orthopedic Surgery 01/31/25 Steven Henning DO [address] [place] [address] DR [address] [place] [id number] Consulting Physician Orthopedic Surgery 01/31/25 Lanre Maddox MD [facility] [address] Consulting Physician Pain Management 02/27/25
--- OUTSIDE RECORDS SUMMARY | 2025-03-29 01:10 | XMS_ITS | Patient Health Record ---
Author Organization 1 OF Ginna alonzo [facility] Address [address] [address] [place] [address] Care Team Providers Care Stripping And Booking Machine Operator Name Role Phone Franklyn CLARK, Tao Primary Care Provider Unavail able Fred Andrew Unavailable [phone] Genevieve Reed Unavailable [phone] Allergies Allergen (clinical drug ingredient) Drug/Non Drug Allergy documented on EMR Reaction Allergy Type Onset Date Status moxifloxacin Moxifloxacin vomiting Drug Allergy A ctive Results Component Value Reference Range Notes Wound culture ([facility] R) Reviewed date:01/07/2025 07:48:47 PM Interpretation:Staphylococcus aureus [...] Active HumaLOG 04/25/2014 Active Gabapentin 06/23/2024 Active Rosuvastatin Calcium 20 MG Tablet TAKE 1 TABLET BY MOUTH ONCE DAILY Oral; Duration: 90 Days 04/25/2022 Active Vitamin D 03/07/2025 Active Doxycycline Hyclate 100 MG Tablet 1 tablet Orally Twice a day; Duration: 7 days 03/18/2025 Active Moxifloxacin HCl 400 MG Tablet 1 tablet Orally daily; Duration: 7 days 03/14/2025 Active Social History Tobacco Use: Social History [...] Status Risk Notes Problem Diabetic neuropathic arthropathy (382151714) Charcot foot due to diabetes mellitus (E11.610) Active confirmed Problem Diabetic peripheral neuropathy (489070973) Diabetic peripheral neuropathy (E11.42) Active confirmed Problem Skin ulcer of left foot with fat layer exposed (L97.522) Active confirmed Problem Ulcer of left foot (disorder) (167162271) Skin ulcer of left foot, limited to breakdown of skin (L97.521) Active confirmed Problem Polyneuropathy due to type 2 diabetes mellitus (156170917) Type 2 diabetes mellitus with peripheral neuropathy (E11.42) Active confirmed Problem History of amputation of right great toe (78235689845644446 ) History of amputation of right great toe (Z89.411) Active confirmed Problem History of amputation of left great toe (81737771870616065 ) History of amputation of left great toe (Z89.412) Active confirmed Problem Ulcer of left foot (disorder) (382634919) Ulcer of left foot with fat layer exposed (L97.522) Active confirmed Problem Arthropathy associated with a neurological disorder (87460762) Charcot joint of left foot (M14.672) Active confirmed Problem Methicillin resistant Staphylococcus aureus infection (209815399) MRSA infection (A49.02) Active confirmed Vital Signs Height 64 in 01/31/2025 Weight 175 lbs 01/31/2025 BMI 30.04 kg/m2 01/31/2025 Encounters Encounter Location Date Provider Diagnosis 1 OF Ginna Andrew [facility] [place] [address] 02/19/2025 Fred Andrew 1 OF Ginna Andrew [facility] [address] [place] [address] 02/21/2025 Fred Andrew Type 2 diabetes mellitus with peripheral neuropathy E11.42 and Ulcer of left foot with fat layer exposed L97.522 1 OF Ginna Andrew [address] [place] [address] 02/26/2025 Fred Andrew 1 OF Ginna Andrew [address] [place] [address] 02/28/2025 Fred Andrew 1 OF Ginna Andrew [address] [place] [address] 03/04/2025 Fred Andrew 1 OF Ginna Andrew [address] [place] [address] 03/07/2025 Fred Andrew Type 2 diabetes mellitus with peripheral neuropathy E11.42 and Ulcer of left foot with fat layer exposed L97.522 1 OF Ginna Andrew [address] [place] [address] 03/11/2025 Fred Andrew Type 2 diabetes mellitus with peripheral neuropathy E11.42 and Ulcer of left foot with fat layer exposed L97.522 1 OF Ginna Andrew [address] [place] [address] 03/14/2025 Fred Andrew Type 2 diabetes mellitus with peripheral neuropathy E11.42 and Ulcer of left foot with fat layer exposed L97.522 1 OF Ginna Andrew [address] [place] [address] 03/18/2025 Fred Andrew Type 2 diabetes mellitus with peripheral neuropathy E11.42 and Ulcer of left foot with fat layer exposed L97.522 1 OF Ginna Andrew [address] [place] [address] 03/20/2025 Fred Andrew 1 OF Ginna Andrew [facility] [address] [place] [address] 03/25/2025 Fred Andrew 1 OF Ginna Andrew [address] [facility] [address] [place] [address] 03/28/2025 Genevieve Reed 1 OF Ginna [address] [facility] [address] [place] [address] 03/28/2025 Fred Andrew 1 OF Ginna Andrew [address] [facility] [address] [place] [address] 01/01/2025 Fred Andrew Charcot foot due to [...] great toe Z89.411 1 OF Ginna Andrew [address] [facility] [address] [place] [address] 01/10/2025 Fred Andrew Charcot foot due to [...] MRSA infection A49.02 1 OF Ginna Andrew [address] [facility] [address] [place] [address] 01/21/2025 Fred Andrew Charcot foot due to [...] MRSA infection A49.02 1 OF Ginna Andrew [address] [facility] [address] [place] [address] 01/31/2025 Fred Andrew Charcot foot due to diabetes mellitus E11.610 ; Ulcer of left foot with fat layer exposed L97.522 ; Charcot joint of left foot M14.672 ; Diabetic peripheral neuropathy E11.42 ; Vascular calcification I99.8 ; Hx of osteomyelitis Z87.39 ; History of amputation of left great toe Z89.412 and History of amputation of right great toe Z89.411 1 OF Ginna [address] [place] [address] 02/14/2025 Fred Andrew Charcot foot due to diabetes mellitus E11.610 ; Ulcer of left foot with fat layer exposed L97.522 ; Charcot joint of left foot M14.672 ; Diabetic peripheral neuropathy E11.42 ; Vascular calcification I99.8 ; Hx of osteomyelitis Z87.39 ; History of amputation of left great toe Z89.412 and History of amputation of right great toe Z89.411 1 OF Ginna [address] [place] [address] 03/14/2025 Fred Andrew [address] OF [address] [place] [address] [place] [address] 01/01/2025 Fred Andrew [address] [address] [place] [address] 01/02/2025 Fred Andrew 1 OF [address] [place] [address] 01/21/2025 Fred Andrew [address] [place] [address] 03/20/2025 Fred Andrew Assessments Encounter Date Diagnosis (ICD [...] sent to Ms. Ramirez's home through a [facility]. - Self-care recommendations include daily dressing changes. We will order dressing supplies from [facility]. - Advised to remain off-weight bearing on [...] - Patient consented to participate in the [facility] clinical research study. - Patient will be [...] with peripheral neuropathy (ICD-10 - E11.42) 03/18/2025 Type 2 diabetes mellitus with peripheral neuropathy (ICD-10 - E11.42) 03/18/2025 Ulcer of left foot with fat layer exposed (ICD-10 - L97.522) 03/14/2025 Ulcer of left foot with fat [...] and magnetism, which is approved in [place]. change control coordinator will review chart for eligibility. Patient [...] Details Provider Name:Fred Andrew, 04/02/2025 01:40:00 PM, [address], [place], [address], Provider Name:Fred Andrew, 04/05/2025 08:40:00 AM, [address], [place], [address], Insurance Providers Payer Name Payer Address Payer Phone Subscriber Number Group Number Insured Name Patient Relationship to Insured Coverage Start Date Coverage End Date [facility] [address] [place] [address] [id number] Silvina Moya Self - patient is the insured Medical (General) History Medical History History ICD Code diabetes, neuropathy of feet GERD/Reflux back pain hyperlipidemia Wounds (nonhealing leg/foot) Surgical History Surgery Date(Month/Year) left great toe amputation 2002 RT hallux amputation 1999
--- NOTE | 2025-03-29 06:24 | WPDHPUPDATE1 ---
History and Physical Update Update Date/Time: 03/29/25 06:24 History and Physical has been reviewed, including an updated exam of the patient. There are NO changes in the patient's condition. Risks, benefits, and alternatives have been discussed and questions answered. Patient agrees to proceed with procedure.
--- NOTE | 2025-03-29 08:10 | ECG_ITS ---
Test Date: 2025-03-29 10:32:34 Measurements Intervals [place] Rate: 102 P: 5 MD: 174 QRS: -42 QRSD: 89 T: 14 QT: 338 QTc: 442 Interpretive Statements SINUS TACHYCARDIA VOLTAGE CRITERIA FOR LVH EXTENSIVE ANTERIOR INFARCT, AGE INDETERMINATEANTERIOR INFARCT, AGE INDETERMINATE CONSIDER INFERIOR INFARCT, AGE INDETERMINATE ABNORMAL ECG No previous ECG available for comparison Electronically Signed On 03-29-2025 10:45:01 THRESHING MACHINE OPERATOR by Darian Pa D.O.
[2025-03-29 10:37] LABS: Add Urine Microscopic? YES; Appearance Urine Turbid (Clear); Glucose Urine UA Negative (Negative); Leukocyte Esterase Ur 3+ LEU/UL (Negative); Need Manual Microscopic Reviewed; Nitrate Urine Negative (Negative); Specific Grav Ur 1.013 (1.001-1.035)
[2025-03-29 10:48] LABS: INR 1.1; Prothrombin Time 14.7 Seconds (11.1-14.7)
[2025-03-29 10:49] LABS: Partial Thromboplastin Time 25.3 Seconds (22.3-36.8)
[2025-03-29] MEDS: LACTATED RINGERS 1,000 ML 30 ML IV CONT ×2 (11:00→14:43)
--- NOTE | 2025-03-29 11:51 | WPDANESEPPF ---
Anes - Initial Pre Proc Eval Procedure: Operation Date: 03/29/25 11:30 Proposed Procedures p Left Extracorporeal Shock Wave Lithotripsy, - Terrell Yao MD s Cystoscopy with Stent Placement - Terrell Yao MD Date/Time: 03/29/25 11:51 Surgeon: Terrell Yao MD Pre Op Diagnosis: left kidney stones Patient Data Age: 64 Gender: F Height: 1.63 m Weight: 78.7 kg Last Vital Signs Temp 36.6 C 03/29/25 10:20 Pulse 103 H 03/29/25 10:20 Resp 16 03/29/25 10:20 BP 117/88 03/29/25 10:20 Pulse Ox 99 03/29/25 10:20 O2 Del Method Room Air 03/29/25 10:20 Allergies Allergy/AdvReac Type Severity Reaction Status Date / Time clavulanic acid AdvReac Severe SEVERE Verified 03/29/25 10:45 VOMITING metformin AdvReac Severe SEVERE Verified 03/29/25 10:45 VOMITING Home Medications ?Medication ?Instructions ?Recorded ?Confirmed ?Type pen needle, diabetic 31 gauge x #100 ea 10/25/19 02/12/25 Rx /16 [id number] (pork) 3 cap PO .WITH MEALS 02/22/23 03/28/25 History 3,000-9,500-15,000 unit capsule,del rel (Creon) albuterol sulfate 90 mcg/actuation 2 puff inhalation QID PRN 04/19/24 03/28/25 Rx aerosol inhaler shortness of breath or wheezing #6.7 grams inhalational spacing device #1 ea 04/19/24 02/12/25 Rx (Aerochamber MV spacer) Farxiga 10 mg tablet 10 mg PO DAILY #90 tabs 07/04/24 03/28/25 Rx (dapagliflozin propanediol) insulin syringe-needle U-100 1 mL #100 ea 07/04/24 02/12/25 Rx 28 gauge x 16 (CareTouch Insulin Syringe) insulin aspart U-100 100 unit/mL 80 unit (0.8 mL) continuous 07/30/24 03/28/25 Rx subcutaneous solution (Novolog subcutaneous infusion DAILY #80 mL U-100 Insulin aspart) colestipol 1 gram tablet 1 g PO ONCE PRN DIARHEA 10/31/24 03/28/25 History rosuvastatin 20 mg tablet 20 mg PO DAILY #90 tabs 02/18/25 03/28/25 Rx cholecalciferol (vitamin D3) 1,250 1,250 mcg PO WEEKLY #14 caps 02/26/25 03/28/25 Rx mcg (50,000 unit) capsule Laboratory Tests 03/29/25 03/29/25 10:07 10:33 PT 14.7 Seconds (11.1-14.7) INR 1.1 APTT 25.3 Seconds (22.3-36.8) POC Capillary Glucose 116 H mg/dl (65-105) Urine Color Yellow (Yellow) Urine Appearance Turbid H (Clear) Urine pH 5.0 (5.0-9.0) Ur Specific Ariel 1.013 (1.001-1.035) Urine Protein 1+ H mg/dL (Negative) Urine Glucose (UA) Negative mg/dL (Negative) Urine Ketones Negative mg/dL (Negative) Ur Blood (Man) 1+ H (Negative) Urine Nitrate Negative (Negative) Urine Bilirubin Negative (Negative) Urine Urobilinogen 0.2 mg/dL (<2.0) Add Ur Microanalysis Reviewed Leukocyte Esterase Rfl 3+ H TAMARA/UL (Negative) Urine RBC 11-20 H /hpf (0-2) Urine WBC >100 H /hpf (0-3) Ur Squamous Epith Cells Many H /hpf (Few) Urine Bacteria 4+ H /hpf Urine Casts 6-10 Patient hx anesthesia problems: none Family hx anesthesia problems: none Results Review: All pre-operative results and documents have been reviewed as part of the pre-operative evaluation. REPLACED BY [facility] Past Medical History Medical History Charcot foot due to diabetes mellitus Osteomyelitis (~06/2001) Left great toe which was subsequently amputated. Insulin dependent type 2 diabetes mellitus Complicated by retinopathy and neuropathy. Gastroesophageal reflux disease Surgical History Surgical History History of oophorectomy History of section History of tubal ligation History of amputation of left great toe (~06/2001) History of cholecystectomy (~11/1999) Family History Family History Mother Diabetes mellitus Sibling Diabetes mellitus Non-Hodgkin lymphoma Grandparent Diabetes mellitus Other Cancer Hypertension Respiratory disorder Social History Social History Social History: Surrogate decision maker: Sarah Garcia, daughter. Sister Aicha also designated as an emergency contact. Code status: Full code. Smoking packs per day: 1 Smoking cigarettes per day: 20.0 Years smoked: 21 Smoking pack-years: 21.00 Smoking status: Former smoker Tobacco type: cigarettes Additional smoking assessment comments: QUIT 1999 Alcohol intake: never Substance use: never Lack of Transportation: No Lack of Food: Never True Current Housing: I Have Housing Concerned About Future Housing: No Difficulty Paying Gas/Electric Bills: No Difficulty Paying for Meds: No Currently Unemployed: No Education: Bachelor's Degree Difficulty w/ Childcare or Family Care: No Living arrangements: with family Additional living arrangements comments: Patient lives with her significant other in [place]. Additional occupation/education comments: Works in [employer]. Gender identity (if verbalized by the patient): Female Sexual Orientation (if Verbalized by the Patient): Straight or Heterosexual Spiritual care concerns: Yes ([facility]) Anes - Ignacio Final PreProcedure Day of Procedure 03/29/25 11:51 Patient weight: overweight Heart: tachycardia Lungs: clear to auscultation Airway: Mallampati scale class II Neurological: alert and oriented Last oral intake: >/= 8 hours ASA classification: III Emergent: no Anesthetic plan: proceed Anesthesia type and monitoring: general LMA and standard monitoring Results Review: All pre-operative results and documents have been reviewed as part of the pre-operative evaluation. Informed Consent: The patient's anesthetic plan and its attendant risks and benefits were discussed with the patient/family/POA. Questions were solicited and answers provided to the satisfaction of the patient/family/POA.
--- NOTE | 2025-03-29 12:03 | P.OP_ITS ---
Procedure Note - Detailed Date of Procedure 03/29/25 Pre-op Diagnosis Left kidney stone Post-op Diagnosis Same Procedure Performed Cystoscopy, left ureteral stent placement, left ESWL Surgeon Terrell Yao MD Anesthesia General Description of Procedure The patient was brought to the operative suite where she was placed in the frog- legged position on the Dornier lithotripter table. Flexible cystoscopy was undertaken with a 16F flexible cystoscopy. Her urethra and bladder neck were endoscopically normal. The bladder mucosa was normal and there was a single, orthotopic ureteral orifice bilaterally. A 0.035 glidewire was advanced into the left renal pelvis under fluoroscopy. A 4.8F J-J ureteral stent was positioned with the proximal coil in the renal pelvis and the distal coil in the bladder. The patient was then repositioned in the supine position and the focal point of the lithotriptor was placed at a 16mm left renal calculus. A total of 2500 shocks were delivered at a power setting of 4. There appeared to be good fragmentation of the stone. The patient tolerated the procedure well and was taken to the recovery room in good condition.
[2025-03-29] MEDS: SCOPOLAMINE 1 MG PATCH 1 PATCH TRANSDERM (12:46)
[2025-03-29] MEDS: ONDANSETRON INJ 4 MG/2 ML VIAL IV PUSH (13:40)
== END 2025-03-29 15:29 | disposition home or self-care (01) ==
PROVIDERS: PCP Emergency Medicine; Visit Provider Urology
PROC: (CPT 50590; principal; 2025-03-29 11:30)
PROC: (CPT 52310; 2025-03-29 11:30)
DX: N20.0 Calculus of kidney (principal); Z79.4 Long term (current) use of insulin; Z79.84 Long term (current) use of oral hypoglycemic drugs; Z87.891 Personal history of nicotine dependence
CPT/HCPCS: 52332; 50590; 36415; 74018; 81001; 82948; 85610; 85730; 93005; A9270; C1769; C2617; J1100; J1200; J2003; J2250; J2270; J2371; J2405; J2704; J7120

== ENCOUNTER 2025-04-08 15:13 | Outpatient (CLI) | payer BC, SELFPAY ==
--- OUTSIDE RECORDS SUMMARY | 2025-03-11 04:30 | XMS_ITS ---
Author Organization 1 OF [facility] Address [address] [place] [address] Care Team Providers Care Vice Admiral Name Role Phone Franklyn CLARK, Tao Primary Care Provider Fred Morales [facility] Allergies No Known Allergies REASON FOR VISIT [...] 1 OF [facility] [address] [place] [address] 03/11/2025 Fred Andrew Type 2 diabetes mellitus [...] Up: 3 Days, Reason: Provider Name:Fred Andrew, 04/15/2025 01:00:00 PM, [address], [place] [address], [place], [address], History and Physical Notes * HPI (History of Present Illness) Category Sub-Category Detail Notes Category Not es Primary reason for visit: Subject presents for COM_03 visit 8. She denies any changes to medical conditions, medications, wound care. Nothing significant to report. Progress Notes * Lucretia RAMIREZlovelyDOB :1960 (64 yo F)Acc No.[id number]:03/11/2025 CLINICAL TRIAL RELATED VISIT Patient: Silvina Lopes Provider: Ginna Andrew DPM :1960 A ge:64 Y S ex:Female Date:03/11/2025 Address:[address] [place] [address] [facility] Pcp:Tao Estes MD Subjective: * Chief Complaints: [...] Vitamin D Taking Gabapentin Taking HumaLOG Taking [facility] Wound/Burn Dressing - Paste as directed Topical [...] Electronic signature of Christopher Andrew DPM on 04/08/2025 at 05:38 PM SHIPPING TRACK SUPERVISOR Sign off status: Pending * Provider: Ginna Andrew DPM Date: 05/11/2024 Generated for Casandra mayer/Caroline/Yasmani on: 06/09/2024 05:38 PM SHIPPING TRACK SUPERVISOR
--- OUTSIDE RECORDS SUMMARY | 2025-03-14 09:40 | XMS_ITS ---
Author Organization 1 [facility] Address [address] [place] [address] Care Team Providers Care Licensed Loan Officer Assistant Name Role Phone Franklyn CLARK, Tao Primary [...] 1 OF Ginna Andrew [employer] [address] [address] 03/14/2025 Fred Andrew Type 2 diabetes mellitus [...] days 03/14/2025 Next Appt Details Provider Name:Fred Andrew, 04/15/2025 01:00:00 PM, [address] [facility] [place], [facility], [place], [address], History and Physical Notes * HPI (History of Present Illness) Category Sub-Category Detail Notes Category Not es Primary reason for visit: Subject presents for visit 9 of the [facility]_ Piomic clinical trial. She denies any medication changes or new medical events. She has been compliant with offloading. Progress Notes * HARISSilvina RICHDOB :1960 (64 yo F)Acc No.[id number]:03/14/2025 CLINICAL TRIAL RELATED VISIT Patient: Lucretia Lpoesberly Provider: Ginna Andrew DPM :1960 A ge:64 Y S ex:Female Date:03/14/2025 Address:[address] [place] [address] [facility] Pcp:Tao Estes MD Subjective: * Chief Complaints: * P iomic Visit 9 * HPI: P rimary reason for visit:: Subject presents for visit 9 of the [facility]_ Piomic clinical trial. She denies any medication [...] Andrew DPM on 04/08/2025 at 05:38 PM ACCOUNT CLASSIFICATION CLERK Sign off status: Pending * Provider: Ginna Andrew DPM Date: 05/14/2024 Generated for Casandra mayer/Caroline/Yasmani on: 06/09/2024 05:38 PM ACCOUNT CLASSIFICATION CLERK
--- OUTSIDE RECORDS SUMMARY | 2025-03-18 07:00 | XMS_ITS ---
Author Organization 1 OF [facility] Address [address] [place] [address] Care Team Providers Care Humidifier Maintenance Worker Name Role Phone Franklyn CLARK, Tao Primary Care Provider Unavail Fred Wylie Unavailable Allergies Allergen (clinical drug ingredient) Drug/Non Drug Allergy documented on EMR Reaction Allergy Type Onset Date Status moxifloxacin Moxifloxacin vomiting Drug Allergy A ctive REASON FOR VISIT Piomic Visit 10 Medications Medication SIG (Take, Route, Frequency, Duration) Notes Start Date End Date Status Lidocaine 5 % Patch External; Duration: 30 Days 06/24/2023 Active Rosuvastatin Calcium 20 MG Tablet TAKE 1 TABLET BY MOUTH ONCE DAILY Oral; Duration: 90 Days 04/25/2022 Active Moxifloxacin HCl 400 MG Tablet 1 tablet Orally daily; Duration: 7 days 03/14/2025 Active Pantoprazole Sodium 40 MG Tablet Delayed Release TAKE 1 TABLET BY MOUTH ONCE DAILY Oral; Duration: 30 Days 01/23/2022 Active NovoLOG ReliOn 100 UNIT/ML Solution Injection; Duration: 88 Days 04/25/2014 Active Farxiga 10 MG Tablet Oral; Duration: 90 Days 04/25 Active HumaLOG 04/25/2014 Active Gabapentin 06/23/2024 Active Vitamin D 03/07/2025 Active Doxycycline Hyclate 100 MG Tablet 1 tablet Orally Twice a day; Duration: 7 days 03/18/2025 Active Encounters Encounter Location Date Provider Diagnosis 1 OF [facility] [address] [place] [address] 03/18/2025 Fred Kamran Type 2 diabetes mellitus with peripheral neuropathy E11.42 and Ulcer of left foot with fat layer exposed L97.522 Assessments Encounter Date Diagnosis (ICD Code) Assessment Notes Treatment Notes Treatment Clinical Notes Section Notes 03/18/2025 Type 2 diabetes mellitus with peripheral neuropathy (ICD-10 - E11.42) 03/18/2025 Ulcer of left foot with fat layer exposed (ICD-10 - L97.522) Plan Of Treatment Medication Medication Name Sig Start Date Stop Date Notes Doxycycline Hyclate 100 MG Tablet 1 tablet Orally Twice a day; Duration: 7 days 03/18/2025 Next Appt Details Follow Up: 2 Days, Reason: P iomic Visit 11 Provider Name:Fred Andrew, 04/15/2025 01:00:00 PM, [address], [facility] [address], [place], [address], History and Physical Notes * HPI (History of Present Illness) Category Sub-Category Detail Notes Category Not es Primary reason for visit: Melinda barnes presents for visit 10 of the [facility] COMS_03 clinical trial. She vomitted last night 3 hours after taking her first dose of moxifloxacin. This morning she vomittted after taking her second dose, about 3 hours after the second dose. Her wound PCR was rejected due to specimen tube. She has been using the calcium alginate and adhesive foam on her wound. Kidney stone shockwave therapy on the 5th on her left kidney to remove known kidney stone. Examination Category Sub-Category Detail Notes Category Not [...] * Silvina RAMIREZDOB :1960 (64 yo F)Acc No.[id number]:03/18/2025 CLINICAL TRIAL RELATED VISIT Patient: Silvina Lopes Provider: Ginna Andrew DPM :1960 A ge:64 Y S ex:Female Date:03/18/2025 Address:[address] [place], [place] [address] Pcp:Tao Estes MD Subjective: * Chief Complaints: * P iomic Visit 10 * HPI: P rimary reason for visit:: Subject presents for visit 10 of the [facility] COMS_03 clinical trial. She vomitted last night 3 hours after taking her first dose of moxifloxacin. This morning she vomittted after taking her second dose, about 3 hours after the second dose. Her wound PCR was rejected due to specimen tube. She has been using the calcium alginate and adhesive foam on her wound. Kidney stone shockwave therapy on the on her left kidney to remove known kidney stone. * Medical History: Diabetes, neuropathy of feet GERD/Reflux Back pain Hyperlipidemia Wounds (nonhealing leg/foot) Medical History Verified * Medications: T akingVitamin D Gabapentin HumaLOG Farxiga 10 MG Tablet Oral NovoLOG ReliOn 100 UNIT/ML Solution Injection Pantoprazole Sodium 40 MG Tablet Delayed Release TAKE 1 TABLET BY MOUTH ONCE DAILY Oral Lidocaine 5 % Patch External Rosuvastatin Calcium 20 MG Tablet TAKE 1 TABLET BY MOUTH ONCE DAILY Oral Moxifloxacin HCl 400 MG Tablet 1 tablet Orally daily Taking Vitamin D Taking Gabapentin Taking HumaLOG Taking Farxiga 10 MG Tablet Oral Taking NovoLOG ReliOn 100 UNIT/ML Solution Injection Taking Pantoprazole Sodium 40 MG Tablet Delayed Release TAKE 1 TABLET BY MOUTH ONCE DAILY Oral Taking Lidocaine 5 % Patch External Taking Rosuvastatin Calcium 20 MG Tablet TAKE 1 TABLET BY MOUTH ONCE DAILY Oral Taking Moxifloxacin HCl 400 MG Tablet 1 tablet Orally daily DiscontinuedSantyl 250 UNIT/GM Ointment Apply to wound as directed Externally Once a day Medihoney Wound/Burn Dressing - Paste as directed Topical once daily Medication List reviewed and reconciled with the patientDiscontinued Santyl 250 UNIT/GM Ointment Apply to wound as directed Externally Once a day Discontinued Medihoney Wound/Burn Dressing - Paste as directed Topical once daily Medication List reviewed and reconciled with the patient * Allergies: M oxifloxacin: vomiting - Allergy - Criticality LowyesAllergies Verified. Objective: * Examination: W ound Evaluation: [...] L97.522 Plan: * Treatment: * Follow Up: 2 Days (Reason: Piomic Visit 11) * Electronic signature of Christopher Andrew DPM on 04/08/2025 at 05:38 PM TAP BUILDER Sign off status: Pending * Provider: Ginna Andrew DPM Date: 1 05/18/2024 Generated for Casandra mayer/Caroline/Yasmani on: 06/09/2024 05:38 PM TAP BUILDER
--- OUTSIDE RECORDS SUMMARY | 2025-03-20 08:30 | XMS_ITS ---
Author Organization 1 OF [facility] Address [address] [place] [address] Care Team Providers Care Global Coordinator Name Role Phone Franklyn CLARK, Tao Primary Care Provider Unavail Fred Wylei Unavailable REASON FOR VISIT Piomic Visit 11 Encounters Encounter Location Date Provider Diagnosis 1 OF [facility] [address] [place] [address] 03/20/2025 Fred Andrew Plan Of Treatment Next Appt Details Provider Name:Fred Andrew, 04/15/2025 01:00:00 PM, [address], [address], [place], [address], Progress Notes * Silvina RAMIREZDOB :1960 (64 yo F)Acc No.[id number]:03/20/2025 CLINICAL TRIAL RELATED VISIT Patient: Casimiro Silvina Gooden Provider: Ginna Andrew DPM :1960 A ge:64 Y S ex:Female Date:03/20/2025 Address:[facility] [address] [facility] Pcp:Tao Estes MD Subjective: * Chief Complaints: * P iomic Visit 11 * Electronic signature of Christopher Andrew DPM on 04/08/2025 at 05:41 PM PANTRY CHEF Sign off status: Pending * Provider: Ginna Andrew DPM Date: 05/20/2024 Generated for Casandra mayer/Caroline/Yasmani on: 06/09/2024 05:41 PM PANTRY CHEF
--- OUTSIDE RECORDS SUMMARY | 2025-03-25 06:40 | XMS_ITS ---
Author Organization 1 OF Ginna alonzo [facility] Address [address] [place] [address] Care Team Providers Care Transition Specialist Name Role Phone Franklyn CLARK, Tao Primary Care Provider Unavail Fred Wylie Unavailable REASON FOR VISIT Piomic Visit 12 Encounters Encounter Location Date Provider Diagnosis 1 OF [facility] [address] [place] [address] 03/25/2025 Fred Andrew Plan Of Treatment Next Appt Details Provider Name:Fred Andrew, 04/15/2025 01:00:00 PM, [address], [address], [place], [address], Progress Notes * Silvina RAMIREZDOB :1960 (64 yo F)Acc No.[id number]:03/25/2025 CLINICAL TRIAL RELATED VISIT Patient: Casimiro Silvina Gooden Provider: Ginna Andrew DPM :1960 A ge:64 Y S ex:Female Date:03/25/2025 Address:[facility] [facility] Pcp:Tao Estes MD Subjective: * Chief Complaints: * P iomic Visit 12 * Images * Piomic Visit 12 * Electronic signature of Christopher Andrew DPM on 04/08/2025 at 05:40 PM ATTORNEY RECRUITER Sign off status: Pending * Provider: Ginna Andrew DPM Date: 05/26/2024 Generated for Casandra Martel/Yasmani on: 06/09/2024 05:40 PM ATTORNEY RECRUITER
--- OUTSIDE RECORDS SUMMARY | 2025-03-28 07:00 | XMS_ITS ---
Author Organization 1 OF [facility] Address [address] [place] [address] Care Team Providers Care Information Coder Name Role Phone Franklyn CLARK, Tao Primary Care Provider Unavail Fred Wylie Unavailable [phone] Genevieve Reed Unavailable [phone] REASON FOR VISIT Piomic Visit 13 Encounters Encounter Location Date Provider Diagnosis 1 OF [facility] [address] [place] [address] 03/28/2025 Genevieve Reed Plan Of Treatment Next Appt Details Provider Name:Fred Andrew, 04/15/2025 01:00:00 PM, [address], [address], [place], [address], Progress Notes * Silvina RAMIREZDOB :1960 (64 yo F)Acc No.[id number]:03/28/2025 CLINICAL TRIAL RELATED VISIT Patient: Casimiro Silvina Gooden Provider: Vickie Reed DPM :1960 A ge:64 Y S ex:Female Date:03/28/2025 Address:[facility] [place] Pcp:Tao Estes MD Subjective: * Chief Complaints: * P iomic Visit 13 * Electronic signature of Melany Reed DPM on 04/08/2025 at 05:40 PM MECHANIC MARINE ENGINE Sign off status: Pending * Provider: Vickie Reed DPM Date: 05/29/2024 Generated for Casandra mayer/Collin on: 06/09/2024 05:40 PM MECHANIC MARINE ENGINE
--- OUTSIDE RECORDS SUMMARY | 2025-04-05 02:40 | XMS_ITS ---
Author Organization 1 OF Ginna alonzo [facility] Address [address] [place] [address] Care Team Providers Care Train Master Name Role Phone Franklyn CLARK, Tao Primary Care Provider Unavail Fred Wylie Unavailable [phone] REASON FOR VISIT Piomic Visit 15 Medications Medication SIG (Take, Route, Frequency, Duration) Notes Start Date End Date Status Rosuvastatin Calcium 20 MG Tablet TAKE 1 TABLET BY MOUTH ONCE DAILY Oral; Duration: 90 Days 04/25/2022 Active Pantoprazole Sodium 40 MG Tablet Delayed Release TAKE 1 TABLET BY MOUTH ONCE DAILY Oral; Duration: 30 Days 01/23/2022 Active Lidocaine 5 % Patch External; Duration: 30 Days 06/24/2023 Active NovoLOG ReliOn 100 UNIT/ML Solution Injection; Duration: 88 Days 04/25/2014 Active Farxiga 10 MG Tablet Oral; Duration: 90 Days 04/25 Active HumaLOG 04/25/2014 Active Vitamin D 03/07/2025 Active Gabapentin 06/23/2024 Active Encounters Encounter Location Date Provider Diagnosis 1 OF [facility] [address] [place] [address] 04/05/2025 Fred Andrew Type 2 diabetes mellitus with peripheral neuropathy E11.42 and Ulcer of left foot with fat layer exposed L97.522 Assessments Encounter Date Diagnosis (ICD Code) Assessment Notes Treatment Notes Treatment Clinical Notes Section Notes 04/05/2025 Type 2 diabetes mellitus with peripheral neuropathy (ICD-10 - E11.42) 04/05/2025 Ulcer of left foot with fat layer exposed (ICD-10 - L97.522) Plan Of Treatment Next Appt Details Follow Up: 4 days, Reason: P iomic Visit 16 Provider Name:Fred Andrew, 04/15/2025 01:00:00 PM, [address], [place], [address], History and Physical Notes * HPI (History of Present Illness) Category Sub-Category Detail Notes Category Not es Primary reason for visit: Subject presents for visit 15 of the COMS_03 Piomic clinical trial. She has 1 treatment visit remaining after today's visit. She continues to change the calcium alginate daily, after she showers. States she is wearing the surgical shoe with all weightbearing activity. Examination Category Sub-Category Detail Notes Category Not [...] x 1.58 cm x 0.3 cm depth04/02/2025: 2.05 cm x 1.62 cm x 0.3 cm depthAppearance today: , (wound depth: subcutaneous / fatty tissue), no undermining, No purulence, no probing to bone, no cellulitis, serosanguinous drainage, moderate drainage Progress Notes * LASHELL LucretialovelyDOB :1960 (64 yo F)Acc No.[id number]:04/05/2025 CLINICAL TRIAL RELATED VISIT Patient: Silvina Lopes Provider: Ginna Andrew DPM :1960 A ge:64 Y S ex:Female Date:04/05/2025 Address:[address] [place] [address] [facility] Pcp:Tao Estes MD Subjective: * Chief Complaints: * P iomic Visit 15 * HPI: P rimary reason for visit:: Subject presents for visit 15 of the COMS_03 Piomic clinical trial. She has 1 treatment visit remaining after today's visit. She continues to change the calcium alginate daily, after she showers. States she is wearing the surgical shoe with all weightbearing activity. * Medications: T akingVitamin D Gabapentin HumaLOG [...] List reviewed and reconciled with the patient Objective: * Examination: W ound Evaluation: : [...] 1.58 cm x 0.3 cm depth 04/02/2025: 2.05 cm x 1.62 cm x 0.3 cm depth Appearance today: , (wound depth: subcutaneous / fatty tissue), no undermining, No purulence, no probing to bone, no cellulitis, serosanguinous drainage, moderate drainage. Assessment: * Assessment: 1. T ype 2 diabetes mellitus with peripheral neuropathy - E11.42 (Primary) 2 .?Ulcer of left foot with fat layer exposed - L97.522 Plan: * Follow Up: 4 days (Reason: Piomic Visit 16) * Electronic signature of Christopher Andrew DPM on 04/08/2025 at 05:39 PM SULFUR CHLORIDE OPERATOR Sign off status: Pending * Provider: Ginna Andrew DPM Date: 1 06/06/2024 Generated for Casandra Martel/Yasmani on: 06/09/2024 05:39 PM SULFUR CHLORIDE OPERATOR
--- NOTE | ~2025-04-08 | XR_ITS ---
XR abdomen/kub 1V INDICATION: N20.0 - Calculus of kidney REFERENCE: NONE FINDINGS: A supine view of the abdomen is submitted. The bowel gas pattern is nonobstructive. No free air is identified. Left ureteral stent is noted. There are left renal stones measuring up to 8 mm. IMPRESSION: Left renal stones are noted. Reviewed, dictated and finalized at location S. RONMENTAL SERVICES COORDINATOR
--- OUTSIDE RECORDS SUMMARY | 2025-04-08 17:39 | XMS_ITS | Patient Health Record ---
Author Organization 1 OF Ginna alonzo [facility] Address [address] [address] [place] [address] Care Team Providers Care Apigee Developer Name Role Phone Franklyn CLRAK, Tao Primary Care Provider Unavail able Fred Andrew Unavailable Genevieve Reed Unavailable [phone] Allergies Allergen (clinical drug ingredient) Drug/Non Drug Allergy documented on EMR Reaction Allergy Type Onset Date Status moxifloxacin Moxifloxacin vomiting Drug Allergy A ctive Results Component Value Reference Range Notes Wound culture ([facility] R) Reviewed date:01/07/2025 07:48:47 PM Interpretation:Staphylococcus aureus [...] Active HumaLOG 04/25/2014 Active Gabapentin 06/23/2024 Active Social History Tobacco Use: Social History [...] hodges alcohol use Recreational drugs Patient edu s recreational drug use Problems Problem Type SNOMED Code ICD Code Onset Dates Problem Status W/U Status Risk Notes Problem Diabetic neuropathic arthropathy (457637440) Charcot foot due to diabetes mellitus (E11.610) Active confirmed Problem Diabetic peripheral neuropathy (560154101) Diabetic peripheral neuropathy (E11.42) Active confirmed Problem Skin ulcer of left foot with fat layer exposed (L97.522) Active confirmed Problem Ulcer of left foot (disorder) (128501142) Skin ulcer of left foot, limited to breakdown of skin (L97.521) Active confirmed Problem Polyneuropathy due to type 2 diabetes mellitus (897281138) Type 2 diabetes mellitus with peripheral neuropathy (E11.42) Active confirmed Problem History of amputation of right great toe (38940776092399395 ) History of amputation of right great toe (Z89.411) Active confirmed Problem History of amputation of left great toe (12538514148405981 ) History of amputation of left great toe (Z89.412) Active confirmed Problem Ulcer of left foot (disorder) (725376517) Ulcer of left foot with fat layer exposed (L97.522) Active confirmed Problem Arthropathy associated with a neurological disorder (14923143) Charcot joint of left foot (M14.672) Active confirmed Problem Methicillin resistant Staphylococcus aureus infection (548465692) MRSA infection (A49.02) Active confirmed Vital Signs Height 64 in 01/31/2025 Weight 175 lbs 01/31/2025 BMI 30.04 kg/m2 01/31/2025 Encounters Encounter Location Date Provider Diagnosis 1 OF Ginna Andrew DPM [facility] [email or web address] [place] [address] 02/19/2025 Fred Andrew 1 OF Ginna Andrew DPM [facility] [email or web address] [place] [address] 02/21/2025 Fred Andrew Type 2 diabetes mellitus with peripheral neuropathy E11.42 and Ulcer of left foot with fat layer exposed L97.522 [address] OF [facility] [id number] [place] [address] 02/26/2025 Fred Andrew 1 OF Ginna Flores [address] [place] [address] 02/28/2025 Fred Andrew 1 OF Ginna Andrew [address] [place] [address] [place] [address] 03/04/2025 Fred Andrew 1 OF Ginna Flores [address] [place] [address] 03/07/2025 Fred Andrew Type 2 diabetes mellitus with peripheral neuropathy E11.42 and Ulcer of left foot with fat layer exposed L97.522 1 OF Ginna Mark Andrew [address] [place] [address] 03/11/2025 Fred Andrew Type 2 diabetes mellitus with peripheral neuropathy E11.42 and Ulcer of left foot with fat layer exposed L97.522 1 OF Ginna Mark Andrew [address] [place] [address] 03/14/2025 Fred Andrew Type 2 diabetes mellitus with peripheral neuropathy E11.42 and Ulcer of left foot with fat layer exposed L97.522 1 OF Ginna Mark Andrew [address] [place] [address] 03/18/2025 Fred Andrew Type 2 diabetes mellitus with peripheral neuropathy E11.42 and Ulcer of left foot with fat layer exposed L97.522 1 OF Ginna Mark Andrew [address] [place] [address] [place] [address] 03/20/2025 Fred Andrew 1 OF Ginna Flores [address] [place] [address] 03/25/2025 Fred Andrew 1 OF Ginna Flores [address] [place] [address] 03/28/2025 Genevieve Reed 1 OF C Mark Andrew [address] [place] [address] 03/28/2025 Paragkatelin Andrew [address] [place] [address] 04/02/2025 Fred Andrew Type 2 diabetes mellitus with peripheral neuropathy E11.42 and Ulcer of left foot with fat layer exposed L97.522 1 OF [address] [place] [email or web address] [place] [address] 04/05/2025 Paragkatelin Andrew Type 2 diabetes mellitus with peripheral neuropathy E11.42 and Ulcer of left foot with fat layer exposed L97.522 1 OF [address] [email or web address] [place] [address] 04/08/2025 Fred Andrew Charcot foot due to diabetes mellitus E11.610 ; Type 2 diabetes mellitus with peripheral neuropathy E11.42 and Ulcer of left foot with fat layer exposed L97.522 1 [address] [place] [email or web address] [place] [address] 01/01/2025 Fred Andrew Charcot foot due to [...] right great toe Z89.411 1 OF [address] [place] [email or web address] [place] [address] 01/10/2025 Fred Andrew Charcot foot due to [...] and MRSA infection A49.02 1 OF [email or web address] [place] [address] 01/21/2025 Fred Andrew Charcot foot due to [...] MRSA infection A49.02 1 OF Ginna Andrew [address] [place] [address] 01/31/2025 Fred Andrew Charcot foot due to diabetes mellitus E11.610 ; Ulcer of left foot with fat layer exposed L97.522 ; Charcot joint of left foot M14.672 ; Diabetic peripheral neuropathy E11.42 ; Vascular calcification I99.8 ; Hx of osteomyelitis Z87.39 ; History of amputation of left great toe Z89.412 and History of amputation of right great toe Z89.411 1 OF Ginna Andrew [address] [place] [address] 02/14/2025 Fred Andrew Charcot foot due to diabetes mellitus E11.610 ; Ulcer of left foot with fat layer exposed L97.522 ; Charcot joint of left foot M14.672 ; Diabetic peripheral neuropathy E11.42 ; Vascular calcification I99.8 ; Hx of osteomyelitis Z87.39 ; History of amputation of left great toe Z89.412 and History of amputation of right great toe Z89.411 1 OF Ginna Andrew [address] [place] [address] 03/14/2025 Fred Andrew 1 OF Ginna Andrew [address] [place] [address] 01/01/2025 Fred Andrew 1 OF Ginna Andrew [address] [place] [address] 01/02/2025 Fred Andrew 1 OF Ginna Andrew [address] [place] [address] 01/21/2025 Fred Andrew 1 OF Ginna Andrew [address] [place] [address] 03/20/2025 Fred Andrew Assessments Encounter Date Diagnosis [...] sent to Ms. Ramirez's home through a [employer]. - Self-care recommendations include daily dressing changes. We will order dressing supplies from [employer]. - Advised to remain off-weight bearing on [...] - Patient consented to participate in the [facility] clinical research study. - Patient will [...] with peripheral neuropathy (ICD-10 - E11.42) 04/02/2025 Type 2 diabetes mellitus with peripheral neuropathy (ICD-10 - E11.42) 04/05/2025 Type 2 diabetes mellitus with peripheral neuropathy (ICD-10 - E11.42) 04/08/2025 Charcot foot due to diabetes mellitus [...] cover it. Patient agrees with this plan. 04/05/2025 Ulcer of left foot with fat layer exposed (ICD-10 - L97.522) 04/02/2025 Ulcer of left foot with fat layer exposed (ICD-10 - L97.522) 03/18/2025 Ulcer of left foot with fat [...] and magnetism, which is approved in [place]. patient appointment coordinator will review chart for eligibility. Patient [...] PM, [address], [place], [address], Insurance Providers Payer Name Payer Address Payer Phone Subscriber Number Group Number Insured Name Patient Relationship to Insured Coverage Start Date Coverage End Date [facility] [address] [place] [address] [id number] Silvina Moya Self - patient is the insured Medical (General) History Medical History History ICD Code diabetes, neuropathy of feet GERD/Reflux back pain hyperlipidemia Wounds (nonhealing leg/foot) Surgical History Surgery Date(Month/Year) left great toe amputation 2002 RT hallux amputation 1999
--- OUTSIDE RECORDS SUMMARY | 2025-04-08 17:41 | XMS_ITS | Data Portability ---
Author Organization [place] - S [employer], Main Office Address [address] [place] [address] Assessment No assessment recorded. Plan of Treatment Reminders Order Date Submit Date Provider Last Modified By Organization Details Last Modified Time Details Appointments None recorded. Lab None recorded. Referral None recorded. Procedures None recorded. Surgeries None recorded. Imaging None recorded. Medication Orders Creon 36,000 unit-114,00 0 unit-180,00 0 unit capsule,del ayed release 2023 024 [facility] [address], [address] [place] [address], [address], 4 16:17:23 pantoprazol e 40 mg tablet,gurdeep yed release 2023 024 [facility] [address], [address] [place] [address], [address], 4 16:17:23 Creon 36,000 unit-114,00 0 unit-180,00 0 unit capsule,del ayed release [address] [facility] [address], [address] [place] [address], [address], 3 09:43:40 pantoprazol e 40 mg tablet,gurdeep yed release 2022 023 [facility] [address], [address] [place] [address], [address], 3 14:54:14 Patient TargetsNo targets recorded. Patient Instructions Encounter Date Encounter Id Patient Instructions Last Modified By Organization Details Last Modified Time 12/08/2022 [id number] PT WITH EPI ON CREON 36K , 2 WITH EACH MEAL. DOING WELL ON THIS MED . CONT SAME F/U IN 6 MTHS . PT WITH GERD . CONT PANTOPRAZOLE 40 MG DAILY . F/U IN 6 MTHS . [email or web address] Not available 12/08/2022 14:54:43 06/08/2023 [id number] PT WITH GERD DOING WELL WITH PANTOPRAZOLE 40 MG DAILY . PT WITH DIARRHEA /EPI. CONTINUE CREON . WITH MEALS . F/U IN 6 MTHS . [email or web address] Not available 06/08/2023 16:17:58 12/07/2023 [id number] CAUTION WITH REFINED SUGARS . FREQUENT SMALL MEALS . [email or web address] Not available 12/07/2023 16:30:04 PT WITH LUQ/ EPIGASTRIC PAIN . S/P LAP BAND SURGERY. RECOMMEND A CT ABD / PELVIS. R/O PANCREATIC LESION . BAND MIGRATION . F/U IN 4 WEEKS . [email or web address] Not available 12/07/2023 16:29:02 Reason for Referral None Reported. Results Created Date Observation Date Name Description Value Unit Range Abnormal Flag Note LastModifiedBy Organization Detail LastModifiedTime Result Notes None recorded. Problems Name Problem SNOMED Code Status Onset Date Resolution Date Notes Provider Name and Address Organization Details Recorded Time Chronic diarrhea 412284926 Active 2019 Not Available [facility] 3 22:05:24 Neuropathy 986863990 Active 2019 Not Available [facility] 3 22:05:24 Osteomyeli tis 31206918 Active 2019 Not Available [facility] 3 22:05:24 Diabetes mellitus 72721477 Active 2019 Not Available [facility] 3 22:05:24 Uncontroll ed type 2 diabetes mellitus 953142383 Active 2021 Not Available [facility] 3 22:05:24 Screening for malignant neoplasm of colon done 4710312467247 Active 2021 Not Available [facility] 3 22:05:24 Postcholec ystectomy syndrome 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 Active 2021 Not Available [facility] 3 22:05:25 Celiac disease 693759635 Active 2021 Not Available [facility] 3 22:05:24 Type 2 diabetes mellitus 86199882 Active 2021 Not Available [facility] 3 22:05:24 Diarrhea 92249268 Active 2021 Not Available [facility] 3 22:05:24 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 2021 Not Available [facility] 3 22:05:24 Exocrine pancreatic insufficie ncy 01854231 Active 2021 Not Available [facility] 3 22:05:24 Microalbum inuria 241686299 Active 2022 Celia Castillo RMAfshan null, [facility] 3 11:29:17 Dyslipidem ia 387783247 Active 2022 REBEKAH Tran null, [facility] 3 11:29:42 Gastroesop hageal reflux disease without esophagiti s 299687719 Active 2022 Leigh Ann El MD [address] [place] [address], [phone] , [facility] 3 14:53:28 Problem Notes None recorded. Procedures Surgical History Date Name Laterality Status Provider Name and Address Organization Details Recorded Time Cholecystectomy completed Not Available [facility] 06/23/2022 22:04:49 Tubal Ligation completed Not Available [facility] 06/23/2022 22:04:49 completed Not Available [facility] 0 06/23/2022 22:04:49 Imaging Results None recorded. [...] Available No t Available [employer] Naomi [address] USE DIRECTED active Not Available Not Available No t Available Kerendia 10 mg tablet active Not Available Not Available No t Available Vitals Date Recorded Body height Body mass index (BMI) Body weight Provider Name and Address Organization Details Last Updated DateTime 06/08/2023 160.02 cm 32.4 kg/m2 28645.4 g Dada Banks Afshan [place] [employer] [facility] [employer] [facility] 06/08/2023 14:49:57 Date Recorded Body mass index (BMI) Body height Oxygen saturation Heart rate Body temperature Body weight Systolic And Diastolic Provider Name and Address Organization Details Last Updated DateTime 3 32.4 kg/m2 160.02 cm 98 % 95 /min 97.6 [degF] 65988.4 g 118/74 mm[Hg] Not Available [facility] 3 22:05:18 Date Recorded Body height Body mass index (BMI) Body weight Heart rate Oxygen saturation Systolic And Diastolic Provider Name and Address Organization Details Last Updated DateTime 4 160.02 cm 31.7 kg/m2 16267.0 3 g 92 /min 99 % 120/70 mm[Hg] Dada Banks [facility] [employer] [facility] [employer] [facility] 4 15:50:26 Date Recorded Body temperature Respiratory rate Provid er Name and Address Organization Details Last Updated DateTime 12/08/2022 97.7 [degF] 14 /min Gracia Ferguson [place] [employer] [facility] [employer] [facility] 12/08/2022 14:11:46 Date Recorded Body height Body mass index (BMI) Body weight Heart rate Oxygen saturation Systolic And Diastolic Provider Name and Address Organization Details Last Updated DateTime 3 160.02 cm 32.4 kg/m2 97624.4 g 94 /min 98 % 118/72 mm[Hg] Dada Banks [facility] [employer] [facility] [employer] [facility] 3 14:09:45 Date Recorded Body mass index (BMI) Body height Oxygen saturation Heart rate Body temperature Body weight Systolic And Diastolic Provider Name and Address Organization Details Last Updated DateTime 2 32.6 kg/m2 160.02 cm 99 % 101 /min 97.5 [degF] 39024 g 116/72 mm[Hg] Not Available [facility] 22:05:18 Social History Question Answer Notes LastModified by Organizat ion Details LastModified Time Tobacco Smoking Status Never Smoker [facility] [employer] [facility] 06/08/2023 14:49:28 Do You Have An Advance Directive? No [id number] Information not available 06/23/2022 What Is Your Level Of Caffeine Consumption? Occasional [id number] Information not available 06/23/2022 In The 14 [...] Type Of Diet Are You Following? DIABETIC [id number] Information not available 06/23/2022 Are You Following A Low Salt Diet? No Information not available 06/08/2023 Do You Have A Medical Power Of Instructor Industrial Design? No Information not available 06/08/2023 What Was The Date Of Your Most Recent Tobacco Screening? 02/03/2022 Information not available 06/08/2023 What Is Your Relationship Status? [id number] Information not available 06/23/2022 Do You Use [...] is your level of alcohol consumption? None [id number] Information not available 06/23/2022 What is your exercise level? Occasional MIGRATION.[id number] Information not available 06/23/2022 Mental Status Question Answer Note LastModified by Organization D etails LastModified Time Do you feel stressed (tense, restless, nervous, or anxious, or unable to sleep at night)? [id number] Information not available 06/08/2023 Family History Relationship Description Onset Age of this Age Resolved Age Notes LastModified by Organization Details LastModified Time Maternal Grandmother Diabetes mellitus [id number] Not available 06/23/2022 22:04:50 Mother Diabetes mellitus [id number] Not available 06/23/2022 22:04:50 Sister Non-Hodgkin' s lymphoma (clinical) 42 rmacios Not available 06/08 14:49:28 Brother Malignant neoplasm of liver 50 rmacios Not available 2023 14:49:28 Medical History Condition Response EYE PROBLEMS Y HAVE YOU BEEN HOSPITALIZED OR SEEN IN [facility] IN THE PAST YEAR ? Y DIABETES, TYPE Y RETINOPATHY Y GI PROBLEMS Y DIZZINESS Y ANEMIA/BLOOD DISORDER Y Gynecological HistoryNo gynecological history recorded. Obstetrics History GPAL:G 0 P 0 0 0 0 Past Encounters Encounter ID Performer Location Encounter Start Date Encounter Closed Date Diagnosis/Indication Diagnosis SNOMED-CT Code Diagnosis ICD10 Code Diagnosis IMO Codes Diagnosis Note [id number] _ATHN_MIGR ATION_1 _ATHENA_M IGRATION_ DEFAULT_1 _1 , 05/20/2021 00:00:00 05/20/2021 17:39:37 [id number] Josie Juan MD [facility] Primary Care [address] [place] [address] 11/03/2021 00:00:00 11/20/2021 12:49:37 [id number] [facility] _ATHENA_M IGRATION_ DEFAULT_1 _1 , 12/03/2021 00:00:00 12/03/2021 20:54:13 [id number] [facility] _ATHENA_M IGRATION_ DEFAULT_1 _1 , 01/14/2022 00:00:00 01/14/2022 18:50:19 [id number] _ATHN_MIGR ATION_1 _ATHENA_M IGRATION_ DEFAULT_1 _1 , 02/03/2022 00:00:00 02/03/2022 16:49:05 [id number] Jimena Jacinto MD [facility] Endo Severino Brandon [address] [place] [address] 06/17/2022 00:00:00 06/17/2022 16:11:43 [id number] Leigh Ann El MD [facility] General [facility] [address] [facility] [address] [address] 12/08/2022 14:05:57 12/08/2022 14:54:49 Exocrine pancreatic insufficiency 16857066 K86.81 Chronic diarrhea 0983883 09 K52.9 Postcholec ystectomy syndrome 87448787 K91.5 Uncontroll ed type 2 diabetes mellitus 710899718 E11.65 Gastroesop hageal reflux disease without esophagitis 674399483 K21.9 [id number] Leigh Ann El MD [facility] General Surgery [address] [facility] [address] [address] 06/08/2023 14:49:20 06/08/2023 15:37:42 Exocrine pancreatic insufficiency 71471887 K86.81 Chronic diarrhea 0040015 09 K52.9 Postcholec ystectomy syndrome 14580834 K91.5 Uncontroll ed type 2 diabetes mellitus 516533677 E11.65 Gastroesop hageal reflux disease without esophagitis 216531036 K21.9 [id number] Leigh Ann El MD [facility] General Surgery [address] [facility] [address] [address] 12/07/2023 15:46:30 12/23/2023 12:38:33 Exocrine pancreatic insufficiency 49199305 K86.81 CONT CREON Chronic diarrhea 4289700 09 K52.9 Postcholec ystectomy syndrome 21027304 K91.5 Uncontroll ed type 2 diabetes mellitus 741163123 E11.65 Gastroesop hageal reflux disease without esophagitis 764851903 K21.9 CONT PANTOPRAZO LE 40 MG DAILY Health Concerns Section Related Observation LastModified by Organization Detai ls LastModified Time None Recorded Concern Status LastModified by Organization Details LastModified Time None Recorded Advance Directives Directive N: Payers Insurance Date Sequence Insurance Name Policy Number Policy Feliciano Covered Member ID Feliciano Member ID Guarantor Name 01/15/2025 1 [place] [id number] Silvina jj [id number] Silvina Benson ant Notes Date Note [...] Leigh Ann El MD [address], [place] [address], [place], [address], [employer] [facility] [employer] 12/08/2022 14:55:00 12/07/2023 text/html ROS as noted [...] Leigh Ann El MD [address], [facility] [address], [place], [address], [employer] [facility] [employer] 12/07/2023 16:30:33 OBGyn Episode No OBEpisode recorded.
== END 2025-04-08 15:14 | disposition home or self-care (01) ==
PROVIDERS: PCP Emergency Medicine; Visit Provider Urology
DX: N20.0 Calculus of kidney (principal)
CPT/HCPCS: 74018

== ENCOUNTER 2025-04-19 13:38 | Outpatient (CLI) | payer BC, SELFPAY ==
--- OUTSIDE RECORDS SUMMARY | 2025-03-18 07:00 | XMS_ITS ---
Author Organization 1 [facility] Address [address] [email or web address] [address] [place] [address] Care Team Providers Care Geochemist Name Role Phone Franklyn CLARK, Tao Primary Care Provider Unavail Fred Wylie Unavailable [phone] Allergies Allergen (clinical drug ingredient) Drug/Non Drug [...] 1 OF [facility] [address] [place] [address] 03/18/2025 Fred Andrew Type 2 diabetes mellitus with [...] P iomic Visit 11 Provider Name:Fred Andrew, 04/22/2025 01:40:00 PM, [address], [facility] [address], [place], [address], History and Physical Notes * HPI (History of Present Illness) Category Sub-Category Detail Notes Category Not es Primary reason for visit: eMlinda barnes presents for visit 10 of the [...] * Silvina RAMIREZDOB :1960 (64 yo F)Acc No.[id number]:03/18/2025 CLINICAL TRIAL RELATED VISIT Patient: Silvina Lopes Provider: Ginna Andrew DPM :1960 A ge:64 Y S ex:Female Date:03/18/2025 Address:[address] [place], [place] [id number] Pcp:Tao Estes MD Subjective: * Chief Complaints: [...] Electronic signature of Christopher Andrew DPM on 04/19/2025 at 01:40 PM MANAGER REQUIREMENTS Sign off status: Pending * Provider: Ginna Andrew DPM Date: 1 05/18/2024 Generated for Casandra mayer/Caroline/Yasmani on: 06/20/2024 01:40 PM MANAGER REQUIREMENTS
--- OUTSIDE RECORDS SUMMARY | 2025-03-20 08:30 | XMS_ITS ---
Author Organization 1 OF Ginna alonzo [facility] Address [address] [place] [address] Care Team Providers Care Healthcare Administration Internship Name Role Phone Franklyn CLARK, Tao Primary Care Provider Unavail Fred Wylie Unavailable REASON FOR VISIT Piomic Visit 11 Encounters Encounter Location Date Provider Diagnosis 1 OF [facility] [address] [place] [address] 03/20/2025 Fred Andrew Plan Of Treatment Next Appt Details Provider Name:Fred Andrew, 04/22/2025 01:40:00 PM, [address], [address], [place], [address], Progress Notes * Silvina RAMIREZDOB :1960 (64 yo F)Acc No.[id number]:03/20/2025 CLINICAL TRIAL RELATED VISIT Patient: Casimiro Silvina Gooden Provider: Ginna Andrew DPM :1960 A ge:64 Y S ex:Female Date:03/20/2025 Address:[facility] [place] [facility] [facility] Pcp:Tao Estes MD Subjective: * Chief Complaints: * P iomic Visit 11 * Electronic signature of Christopher Andrew DPM on 04/19/2025 at 01:41 PM DRAGLINE OPERATOR HELPER Sign off status: Pending * Provider: Ginna Andrew DPM Date: 05/20/2024 Generated for Casandra Martel/Yasmani on: 06/20/2024 01:41 PM DRAGLINE OPERATOR HELPER
--- OUTSIDE RECORDS SUMMARY | 2025-03-25 06:40 | XMS_ITS ---
Author Organization [address] [facility] Address [address] [place] [address] Care Team Providers Care Senior Technical Support Engineer Name Role Phone Franklyn CLARK, Tao Primary Care Provider Unavail Fred Wylie Unavailable REASON FOR VISIT Piomic Visit 12 Encounters Encounter Location Date Provider Diagnosis 1 OF [facility] [address] [place] [address] 03/25/2025 Ferd Andrew Plan Of Treatment Next Appt Details Provider Name:Fred Andrew, 04/22/2025 01:40:00 PM, [address], [address], [place], [address], Progress Notes * Silvina RAMIREZDOB :1960 (64 yo F)Acc No.[id number]:03/25/2025 CLINICAL TRIAL RELATED VISIT Patient: Casimiro Silvina Gooden Provider: Ginna Andrew DPM :1960 A ge:64 Y S ex:Female Date:03/25/2025 Address:[facility] [place] [facility] [facility] Pcp:Tao Estes MD Subjective: * Chief Complaints: * P iomic Visit 12 * Images * Piomic Visit 12 * Electronic signature of Christopher Andrew DPM on 04/19/2025 at 01:41 PM CONTROL PANEL TESTER Sign off status: Pending * Provider: Ginna Andrew DPM Date: 05/26/2024 Generated for Casandra Martel/Yasmani on: 06/20/2024 01:41 PM CONTROL PANEL TESTER
--- OUTSIDE RECORDS SUMMARY | 2025-03-28 07:00 | XMS_ITS ---
Author Organization 1 OF [facility] Address [address] [place] [address] Care Team Providers Care Scrum Project Manager Name Role Phone Franklyn CLARK, Tao Primary Care Provider Unavail Fred Wylie Unavailable [phone] Genevieve Reed Unavailable [phone] REASON FOR VISIT Piomic Visit 13 Encounters Encounter Location Date Provider Diagnosis 1 OF [facility] [address] [place] [address] 03/28/2025 Genevieve Reed Plan Of Treatment Next Appt Details Provider Name:Fred Andrew, 04/22/2025 01:40:00 PM, [address], [address], [place], [address], Progress Notes * Silvina RAMIREZDOB :1960 (64 yo F)Acc No.[id number]:03/28/2025 CLINICAL TRIAL RELATED VISIT Patient: Casimiro Silvina Gooden Provider: Vickie Reed DPM :1960 A ge:64 Y S ex:Female Date:03/28/2025 Address:[address] [place] Pcp:Tao Estes MD Subjective: * Chief Complaints: * P iomic Visit 13 * Electronic signature of Melany Reed DPM on 04/19/2025 at 01:41 PM PAGINATOR Sign off status: Pending * Provider: Vickie Reed DPM Date: 05/29/2024 Generated for Casandra mayer/Collin on: 06/20/2024 01:41 PM PAGINATOR
--- OUTSIDE RECORDS SUMMARY | 2025-03-28 07:10 | XMS_ITS ---
Author Organization 1 OF Ginna alonoz DPM [facility] Address [address] [place] [address] Care Team Providers Care Supervisor Heavy Equipment Name Role Phone Franklyn CLARK, Tao Primary Care Provider Unavail Ferd Wylie Unavailable REASON FOR VISIT Piomic Visit 13 Encounters Encounter Location Date Provider Diagnosis 1 OF [facility] [address] [place] [address] 03/28/2025 Fred Andrew Plan Of Treatment Next Appt Details Provider Name:Fred Andrew, 04/22/2025 01:40:00 PM, [address], [address], [place], [address], Progress Notes * Silvina RAMIREZDOB :1960 (64 yo F)Acc No.[id number]:03/28/2025 CLINICAL TRIAL RELATED VISIT Patient: Casimiro Silvina Gooden Provider: Ginna Andrew DPM :1960 A ge:64 Y S ex:Female Date:03/28/2025 Address:[facility] [address] [facility] Pcp:Tao Estes MD Subjective: * Chief Complaints: * P iomic Visit 13 * Electronic signature of Christopher Andrew DPM on 04/19/2025 at 01:40 PM MARINE ELECTRICIAN Sign off status: Pending * Provider: Ginna Andrew DPM Date: 1 05/29/2024 Generated for Casandra Martel/Yasmani on: 06/20/2024 01:40 PM MARINE ELECTRICIAN
--- OUTSIDE RECORDS SUMMARY | 2025-04-02 07:40 | XMS_ITS ---
Author Organization 1 [facility] Address [address] [place] [address] Care Team Providers Care Hand Scudder Name Role Phone Franklyn CLARK, Tao Primary Care Provider Unavail Fred Wylie Unavailable Allergies Allergen (clinical drug ingredient) Drug/Non Drug Allergy documented on EMR Reaction Allergy Type Onset Date Status moxifloxacin Moxifloxacin vomiting Drug Allergy A ctive REASON FOR VISIT Piomic visit 14 Medications Medication SIG (Take, Route, Frequency, Duration) Notes Start Date End Date Status Farxiga 10 MG Tablet Oral; Duration: 90 Days 04/25 Active HumaLOG 04/25/2014 Active Vitamin D 03/07/2025 Active Gabapentin 06/23/2024 Active Pantoprazole Sodium 40 MG Tablet Delayed Release TAKE 1 TABLET BY MOUTH ONCE DAILY Oral; Duration: 30 Days 01/23/2022 Active Lidocaine 5 % Patch External; Duration: 30 Days 06/24/2023 Active NovoLOG ReliOn 100 UNIT/ML Solution Injection; Duration: 88 Days 04/25/2014 Active Rosuvastatin Calcium 20 MG Tablet TAKE 1 TABLET BY MOUTH ONCE DAILY Oral; Duration: 90 Days 04/25/2022 Active Encounters Encounter Location Date Provider Diagnosis 1 OF Ginna [facility] [address] [address] 04/02/2025 Fred Andrew Type 2 diabetes mellitus with peripheral neuropathy E11.42 and Ulcer of left foot with fat layer exposed L97.522 Assessments Encounter Date Diagnosis (ICD Code) Assessment Notes Treatment Notes Treatment Clinical Notes Section Notes 04/02/2025 Type 2 diabetes mellitus with peripheral neuropathy (ICD-10 - E11.42) 04/02/2025 Ulcer of left foot with fat layer exposed (ICD-10 - L97.522) Plan Of Treatment Next Appt Details Follow Up: 3 Days, Reason: Provider Name:Fred Andrew, 04/22/2025 01:40:00 PM, [address], [place], [address], Procedure Notes * Category Sub-Category Detail Notes WOUND CARE: Wound debridement: 51961 (excisi onal debridement of subQ tissue - [...] saline, Dressing applied to wound consisting of:, calcium alginate, foam. History and Physical Notes * HPI (History of Present Illness) Category Sub-Category Detail Notes Category Not es Primary reason for visit: Subject presents for visit 14 of the COMS_03 clinical trial. She denies any issues. States she is unsure how the wound is progressing. Patient denies any issues or noncompliance with offloading. She denies any medication changes or signficant medical events. Examination Category Sub-Category Detail Notes Category Not [...] cm x 1.53 cm 0.3 cm depth03/07/2025 1.82 cm x 1.65 xm 0.3 cm depth03/11/2025: 1.83 cm x 1.46 cm x 0.3 cm depth03/14/2025: 2.11 cm x 1.76 cm x 0.3 cm depth03/20/2025: 1.91 cm x 1.43 cm x 0.3 cm depth03/25/2025: 2.17 cm x 1.88 cm x 0.3 cm depth03/28/2025: 1.98 cm x 1.58 cm x 0.3 cm depth04/02/2025: Appearance today: , (wound depth: subcutaneous / fatty tissue), no undermining, No purulence, no probing to bone, no cellulitis, serosanguinous drainage, moderate drainage Progress Notes * LASHELLSilvinaDOB :1960 (64 yo F)Acc No.[id number]:04/02/2025 CLINICAL TRIAL RELATED VISIT Patient: Silvina Lopes Provider: Ginna Andrew DPM :1960 A ge:64 Y S ex:Female Date:04/02/2025 Address:[address] [place] [address] [facility] Pcp:Tao Estes MD Subjective: * Chief Complaints: * P iomic visit 14 * HPI: P rimary reason for visit:: Subject presents for visit 14 of the COMS_03 clinical trial. She denies any issues. States she is unsure how the wound is progressing. Patient denies any issues or noncompliance with offloading. She denies any medication changes or signficant medical events. * Medical History: Diabetes, neuropathy of feet [...] TABLET BY MOUTH ONCE DAILY Oral Taking Vitamin D Taking Gabapentin Taking HumaLOG Taking Farxiga 10 MG Tablet Oral Taking NovoLOG ReliOn 100 UNIT/ML Solution Injection Taking Pantoprazole Sodium 40 MG Tablet Delayed Release TAKE 1 TABLET BY MOUTH ONCE DAILY Oral Taking Lidocaine 5 % Patch External Taking Rosuvastatin Calcium 20 MG Tablet TAKE 1 TABLET BY MOUTH ONCE DAILY Oral DiscontinuedDoxycycline Hyclate 100 MG Tablet 1 tablet Orally Twice a day Moxifloxacin HCl 400 MG Tablet 1 tablet Orally daily Medication List reviewed and reconciled with the patientDiscontinued Doxycycline Hyclate 100 MG Tablet 1 tablet Orally Twice a day Discontinued Moxifloxacin HCl 400 MG Tablet 1 tablet Orally daily Medication List reviewed and reconciled with [...] x 1.53 cm 0.3 cm depth 03/07/2025 1.82 cm x 1.65 xm 0.3 cm depth 03/11/2025: 1.83 cm x 1.46 cm x 0.3 cm depth 03/14/2025: 2.11 cm x 1.76 cm x 0.3 cm depth 03/20/2025: 1.91 cm x 1.43 cm x 0.3 cm depth 03/25/2025: 2.17 cm x 1.88 cm x 0.3 cm depth 03/28/2025: 1.98 cm x 1.58 cm x 0.3 cm depth 04/02/2025: Appearance today: , (wound depth: subcutaneous / [...] saline, Dressing applied to wound consisting of:, calcium alginate, foam.. ? * Procedure Codes: 1 1042 DEBRIDE SKIN/TISSUE * Follow Up: 3 Days * Billing Information: * Procedure Codes: 04268 DEBRIDE SKIN/TISSUE. Images * wound photo * Electronic signature of Christopher Andrew DPM on 04/19/2025 at 01:40 PM FACTORY HAND Sign off status: Pending * Provider: Ginna Andrew DPM Date: 06/03/2024 Generated for Casandra mayer/Caroline/Yasmani on: 06/20/2024 01:40 PM FACTORY HAND
--- OUTSIDE RECORDS SUMMARY | 2025-04-05 02:40 | XMS_ITS ---
Author Organization 1 OF Ginna alonzo [facility] Address [address] [place] [address] Care Team Providers Care Emissions Testing Technician Name Role Phone Franklyn CLARK, Tao Primary Care Provider Unavail Fred Wylie Unavailable [phone] REASON FOR VISIT Piomic Visit 15 Medications [...] 1 OF [facility] [address] [place] [address] 04/05/2025 Ferd Andrew Type 2 diabetes mellitus with peripheral [...] P iomic Visit 16 Provider Name:Fred Andrew, 04/22/2025 01:40:00 PM, [address], [place], [address], History and Physical Notes * HPI (History [...] * LASHELL LucretialovelyDOB :1960 (64 yo F)Acc No.[id number]:04/05/2025 CLINICAL TRIAL RELATED VISIT Patient: Silvina Lopes Provider: Ginna Andrew DPM :1960 A ge:64 Y S ex:Female Date:04/05/2025 Address:[address] [place] [address] [facility] [...] Andrew DPM on 04/19/2025 at 01:40 PM UNIVERSITY RELATIONS RECRUITER Sign off status: Pending * Provider: Ginna Andrew DPM Date: 1 06/06/2024 Generated for Casandra Martel/Yasmani on: 06/20/2024 01:40 PM UNIVERSITY RELATIONS RECRUITER
--- OUTSIDE RECORDS SUMMARY | 2025-04-08 06:50 | XMS_ITS ---
Author Organization 1 OF [facility] Address [address] [place] [address] Care Team Providers Care Healthcare Recruiter Name Role Phone Franklyn CLARK, Tao Primary Care Provider Unavail Fred Wylie Unavailable [phone] Allergies Allergen (clinical drug ingredient) Drug/Non Drug Allergy documented on EMR Reaction Allergy Type Onset Date Status moxifloxacin Moxifloxacin vomiting Drug Allergy A ctive REASON FOR VISIT Piomic V 16 Medications Medication SIG (Take, Route, Frequency, Duration) Notes Start Date End Date Status Vitamin D 03/07/2025 Active Rosuvastatin Calcium 20 MG Tablet TAKE [...] 1 OF [facility] [address] [address] 04/08/2025 Fred Andrew Charcot foot due to diabetes mellitus E11.610 ; Type 2 diabetes mellitus with peripheral neuropathy E11.42 and Ulcer of left foot with fat layer exposed L97.522 Assessments Encounter Date Diagnosis (ICD Code) Assessment Notes Treatment Notes Treatment Clinical Notes Section Notes 04/08/2025 Charcot foot due to diabetes mellitus (ICD-10 - E11.610) 04/08/2025 Type 2 diabetes mellitus with peripheral neuropathy (ICD-10 - E11.42) 04/08/2025 Ulcer of left foot with fat layer exposed (ICD-10 - L97.522) Wound has not improved in size. Will apply TCC next visit if sponsor approved. Will inquire about billing insurance if the sponsor does not want to cover it. Patient agrees with this plan. Plan Of Treatment Treatment Notes Assessment Notes Ulcer of left foot with fat layer expose d Wound has not improved in size. Will apply TCC next visit if sponsor approved. Will inquire about billing insurance if the sponsor does not want to cover it. Patient agrees with this plan. Next Appt Details Follow Up: 1 Week, Reason: Provider Name:Fred Andrew, 04/22/2025 01:40:00 PM, [address], [place], [address], Procedure Notes * Category Sub-Category Detail Notes WOUND CARE: Wound debridement: 54061 (excisi onal debridement of subQ tissue - [...] applied to wound consisting of:, calcium alginate, adhesive foam Home wound care instructions: Apply dres sing in similar manner as applied in office today, daily History and Physical Notes * HPI (History of Present Illness) Category Sub-Category Detail Notes Category Not es Primary reason for visit: Subject presents for visit 16 of the Piomic COMS_03 clinical trial. She denies any changes to her medication or wound care since last visit. She would be interested in changes offloading strategies if the study permits. Correspondence was sent to the sponsor to get approval. She believes she can avoid exacerbating her back pain by being sedentary. She is retired. Examination Category Sub-Category Detail Notes Category Not [...] cm x 1.62 cm x 0.3 cm depth04/08/2025: 1.94 cm x 1.72 cm x 0.3 cm depthAppearance today: , (wound depth: subcutaneous / fatty tissue), no undermining, No purulence, no probing to bone, no cellulitis, serosanguinous drainage, moderate drainage Progress Notes * Silvina RAMIREZDOKirill :1960 (64 yo F)Acc No.[id number]:04/08/2025 CLINICAL TRIAL RELATED VISIT Patient: Silvina Lopes Provider: Ginna Andrew DPM :1960 A ge:64 Y S ex:Female Date:04/08/2025 Address:[address] [place] [address] [facility] Pcp:Tao Estes MD Subjective: * Chief Complaints: * P iomic V 16 * HPI: P rimary reason for visit:: Subject presents for visit 16 of the Piomic COMS_03 clinical trial. She denies any changes to her medication or wound care since last visit. She would be interested in changes offloading strategies if the study permits. Correspondence was sent to the sponsor to get approval. She believes she can avoid exacerbating her back pain by being sedentary. She is retired. * Medical History: Diabetes, neuropathy of feet [...] x 1.62 cm x 0.3 cm depth 04/08/2025: 1.94 cm x 1.72 cm x 0.3 cm depth Appearance today: , (wound depth: subcutaneous / fatty tissue), no undermining, No purulence, no probing to bone, no cellulitis, serosanguinous drainage, moderate drainage. Assessment: * Assessment: 1. C harcot foot due to diabetes mellitus - E11.610 (Primary) 2 . T ype 2 diabetes mellitus with peripheral neuropathy - E11.42 3 . U lcer of left foot with fat layer exposed - L97.522 Plan: * Treatment: * Procedures: W OUND CARE:: Wound debridement: 1 1041 (excisional debridement of subQ tissue - 1st [...] applied to wound consisting of:, calcium alginate, adhesive foam. Home wound care instructions: A pply dressing in similar manner as applied in office today, daily. * Procedure Codes: 1 1042 DEBRIDE SKIN/TISSUE * Follow Up: 1 Week Billing Information: * Procedure Codes: 07439 DEBRIDE SKIN/TISSUE. * Electronic signature of Christopher Andrew DPM on 04/19/2025 at 01:41 PM COMMISSARY ASSISTANT Sign off status: Pending * Provider: Ginna Andrew DPM Date: 06/09/2024 Generated for Casandra mayer/Caroline/Yasmani on: 06/20/2024 01:41 PM COMMISSARY ASSISTANT
--- OUTSIDE RECORDS SUMMARY | 2025-04-15 07:00 | XMS_ITS ---
Author Organization 1 OF Ginna alonzo DPM [facility] Address [address] [place] [address] Care Team Providers Care Aquacultural Worker Supervisor Name Role Phone Franklyn CLARK, Tao Primary Care Provider Unavail Fred Wylie Unavailable [phone] REASON FOR VISIT Piomic Visit 17 Encounters Encounter Location Date Provider Diagnosis 1 OF [facility] [address] [place] [address] 04/15/2025 Fred Andrew Plan Of Treatment Next Appt Details Provider Name:Fred Andrew, 04/22/2025 01:40:00 PM, [address], [place], [address], Progress Notes * Silvina RAMIREZDOB :1960 (64 yo F)Acc No.[id number]:04/15/2025 CLINICAL TRIAL RELATED VISIT Patient: Casimiro Silvina Gooden Provider: Ginna Andrew DPM :1960 A ge:64 Y S ex:Female Date:04/15/2025 Address:[facility] [employer] [facility] Pcp:Tao Estes MD Subjective: * Chief Complaints: * P iomic Visit 17 * Electronic signature of Christopher Andrew DPM on 04/19/2025 at 01:40 PM HEALTH COACH Sign off status: Pending * Provider: Ginna Andrew DPM Date: 1 06/16/2024 Generated for Casandra Martel/Yasmani on: 06/20/2024 01:40 PM HEALTH COACH
--- OUTSIDE RECORDS SUMMARY | 2025-04-16 02:40 | XMS_ITS ---
Author Organization 1 OF Ginna alonzo DPM [facility] Address [address] [place] [address] Care Team Providers Care Customs Examiner Name Role Phone Franklyn CLARK, Tao Primary Care Provider Unavail Fred Wylie Unavailable [phone] REASON FOR VISIT Piomic V17 Encounters Encounter Location Date Provider Diagnosis 1 OF [facility] [address] [place] [address] 04/16/2025 Fred Andrew Plan Of Treatment Next Appt Details Provider Name:Fred Andrew, 04/22/2025 01:40:00 PM, [address], [place], [address], Progress Notes * Silvina RAMIREZDOB :1960 (64 yo F)Acc No.[id number]:04/16/2025 CLINICAL TRIAL RELATED VISIT Patient: Casimiro Silvina Gooden Provider: Ginna Andrew DPM :1960 A ge:64 Y S ex:Female Date:04/16/2025 Address:[facility] Pcp:Tao Estes MD Subjective: * Chief Complaints: * P iomic V17 * Electronic signature of Christopher Andrew DPM on 04/19/2025 at 01:41 PM ALLIGATOR HUNTER Sign off status: Pending * Provider: Ginna Andrew DPM Date: 06/17/2024 Generated for Casandra Martel/Yasmani on: 06/20/2024 01:41 PM ALLIGATOR HUNTER
--- NOTE | ~2025-04-19 | XR_ITS ---
XR abdomen/kub 1V 04/19/2025 13:52 Indication: Renal stones Procedure: KUB Comparison: 04/08/2025 Findings: Bowel gas pattern nonobstructive. There are bilateral renal stones. There is a left internal ureteral stent present. There are cholecystectomy clips. There are multiple pelvic calcifications, most of which are phleboliths, although a distal right ureteral or bladder stone is not excluded. Impression: 1: Bilateral renal stones. 2: Possible distal right ureteral or bladder stone. Recommend correlation with CT. Reviewed, dictated and finalized at location O. 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 2: Possible distal right ureteral or bladder stone. Recommend correlation with CT.
--- OUTSIDE RECORDS SUMMARY | 2025-04-19 13:41 | XMS_ITS | Patient Health Record ---
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 Role Phone Franklyn CLARK, Tao Primary Care Provider Unavail able Fred Andrew Unavailable Genevieve Reed Unavailable [phone] Allergies Allergen (clinical drug ingredient) Drug/Non Drug Allergy documented on EMR Reaction Allergy Type Onset Date Status moxifloxacin Moxifloxacin vomiting Drug Allergy A ctive Results Component Value Reference Range Notes Wound culture ([facility] R) Reviewed date:01/07/2025 07:48:47 PM [...] Status Risk Notes Problem Diabetic neuropathic arthropathy (618938444) Charcot foot due to diabetes mellitus (E11.610) Active confirmed Problem Diabetic peripheral neuropathy (578983199) Diabetic peripheral neuropathy (E11.42) Active confirmed Problem Skin ulcer of left foot with fat layer exposed (L97.522) Active confirmed Problem Ulcer of left foot (disorder) (457329305) Skin ulcer of left foot, limited to breakdown of skin (L97.521) Active confirmed Problem Polyneuropathy due to type 2 diabetes mellitus (617842444) Type 2 diabetes mellitus with peripheral neuropathy (E11.42) Active confirmed Problem History of amputation of right great toe (50732500602380888 ) History of amputation of right great toe (Z89.411) Active confirmed Problem History of amputation of left great toe (11455544946622243 ) History of amputation of left great toe (Z89.412) Active confirmed Problem Ulcer of left foot (disorder) (960836791) Ulcer of left foot with fat layer exposed (L97.522) Active confirmed Problem Arthropathy associated with a neurological disorder (56069457) Charcot joint of left foot (M14.672) Active confirmed Problem Methicillin resistant Staphylococcus aureus infection (937223468) MRSA infection (A49.02) Active confirmed Vital Signs Height 64 in 01/31/2025 Weight 175 lbs 01/31/2025 BMI 30.04 kg/m2 01/31/2025 Encounters Encounter Location Date Provider Diagnosis 1 OF Ginna Andrew DPM [facility] [address] [place] [address] 02/19/2025 Fred Andrew 1 OF Ginna Andrew DPM [facility] [address] [place] [address] 02/21/2025 Fred Andrew Type 2 diabetes mellitus with peripheral neuropathy E11.42 and Ulcer of left foot with fat layer exposed L97.522 1 OF [place]inna [address] [place] [address] [place] [address] 02/26/2025 Fred Andrew 1 OF Ginna Flores [address] [place] [address] [place] [address] 02/28/2025 Fred Andrew 1 OF Ginna [address] [place] [address] [place] [address] 03/04/2025 Fred Andrew 1 OF Ginna Flores [address] [address] [place] [address] 03/07/2025 Fred Andrew Type 2 diabetes mellitus with peripheral neuropathy E11.42 and Ulcer of left foot with fat layer exposed L97.522 1 OF Ginna Mark Andrew [place] [address] [place] [address] 03/11/2025 Fred Andrew Type 2 diabetes mellitus with peripheral neuropathy E11.42 and Ulcer of left foot with fat layer exposed L97.522 1 OF Ginna Mark Andrew [place] [address] [place] [address] 03/14/2025 Fred Andrew Type 2 diabetes mellitus with peripheral neuropathy E11.42 and Ulcer of left foot with fat layer exposed L97.522 1 OF Ginna Mark Andrew [place] [address] [place] [address] 03/18/2025 Fred Andrew Type 2 diabetes mellitus with peripheral neuropathy E11.42 and Ulcer of left foot with fat layer exposed L97.522 1 OF Ginna Mark Andrew [address] [place] [address] [place] [address] 03/20/2025 Fred Andrew 1 OF Ginna Flores [address] [place] [address] 03/25/2025 Fred Andrew 1 OF Ginna Flores [address] [place] [address] [place] [address] 03/28/2025 Genevieve Reed 1 OF C Mark Andrew [place] [address] [place] [address] 03/28/2025 Paragkatelin Andrew 1 OF [address] [place] [address] [place] [address] 04/02/2025 Fred Andrew Type 2 diabetes mellitus with peripheral neuropathy E11.42 and Ulcer of left foot with fat layer exposed L97.522 1 OF [address]na [address] [address] [place] [address] 04/05/2025 Paragkatelin Andrew Type 2 diabetes mellitus with peripheral neuropathy E11.42 and Ulcer of left foot with fat layer exposed L97.522 1 OF [address] [address] [place] [address] 04/08/2025 Fred Andrew Charcot foot due to diabetes mellitus E11.610 ; Type 2 diabetes mellitus with peripheral neuropathy E11.42 and Ulcer of left foot with fat layer exposed L97.522 1 OF [address] [address] [place] [address] 01/01/2025 Fred Andrew Charcot foot due to [...] right great toe Z89.411 1 OF [place]na [address] [place] [address] [place] [address] 01/10/2025 Fred Andrew Charcot foot due to [...] and MRSA infection A49.02 1 OF Ginna [address] [place] [address] [place] [address] 01/21/2025 Fred Andrew Charcot foot due to [...] MRSA infection A49.02 1 OF Ginna Andrew [place] [address] [place] [address] 01/31/2025 Fred Andrew Charcot foot due to diabetes mellitus E11.610 ; Ulcer of left foot with fat layer exposed L97.522 ; Charcot joint of left foot M14.672 ; Diabetic peripheral neuropathy E11.42 ; Vascular calcification I99.8 ; Hx of osteomyelitis Z87.39 ; History of amputation of left great toe Z89.412 and History of amputation of right great toe Z89.411 1 OF Ginna Andrew [place] [address] [place] [address] 02/14/2025 Fred Andrew Charcot foot due to diabetes mellitus E11.610 ; Ulcer of left foot with fat layer exposed L97.522 ; Charcot joint of left foot M14.672 ; Diabetic peripheral neuropathy E11.42 ; Vascular calcification I99.8 ; Hx of osteomyelitis Z87.39 ; History of amputation of left great toe Z89.412 and History of amputation of right great toe Z89.411 1 OF Ginna Andrew [place] [address] [place] [address] 01/01/2025 Fred Andrew 1 OF Ginna Andrew [place] [address] [place] [address] 01/02/2025 Fred Andrew 1 OF Ginna Andrew [place] [address] [place] [address] 01/21/2025 Fred Andrew 1 OF Ginna Andrew [place] [address] [place] [address] 03/14/2025 Fred Andrew 1 OF Ginna Andrew [place] [address] [place] [address] 03/20/2025 Fred Andrew 1 OF Ginna Andrew [facility] [address] [place] [address] 04/15/2025 Fred Andrew Assessments Encounter Date Diagnosis (ICD [...] sent to Ms. Ramirez's home through a [employer]. - Self-care recommendations include daily dressing changes. We will order dressing supplies from [employer]. - Advised to remain off-weight bearing on [...] and magnetism, which is approved in [place]. hospital education coordinator will review chart for eligibility. Patient [...] Andrew, 04/22/2025 01:40:00 PM, [address] [place] [address] [address], [place], [address], Insurance Providers Payer Name Payer Address Payer Phone Subscriber Number Group Number Insured Name Patient Relationship to Insured Coverage Start Date Coverage End Date [facility] [address] [place] [address] [id number] Silvina Moya Self - patient is the insured Medical (General) History Medical History History ICD Code diabetes, neuropathy of feet GERD/Reflux back pain hyperlipidemia Wounds (nonhealing leg/foot) Surgical History Surgery Date(Month/Year) left great toe amputation 2002 RT hallux amputation 1999
== END 2025-04-19 13:39 | disposition home or self-care (01) ==
PROVIDERS: PCP Emergency Medicine; Visit Provider Urology
DX: N20.0 Calculus of kidney (principal)
CPT/HCPCS: 74018